=== PATIENT | female | born 1965 | race Caucasian/White ===

== ENCOUNTER → 2018-05-23 12:27 | Outpatient (CLI) | payer OTHER, SELFPAY ==
--- NOTE | 2018-05-23 12:32 | BI_ITS ---
MAMMOGRAPHY - BILATERAL SCREENING REASON FOR EXAM: Female, 53 years old. Routine annual screening examination. PERTINENT HISTORY: Non-contributory. Prior left excisional breast biopsy. TECHNIQUE: Digital bilateral breast jose (3D mammographic acquisition) in the CC and MLO projections. 2-D mediolateral oblique (MLO) and craniocaudad (CC) views of both breasts were obtained. CAD: Full Field Digital Mammography with Computer Added Detection was performed. COMPARISON: Comparison is made with prior study dated April 26, 2017 and April 20, 2016. FINDINGS: Breast Composition: The breasts are heterogeneously dense, which may obscure small masses. There are no dominant masses or suspicious calcifications. No other significant abnormalities are identified. There has been no significant change since the prior study. BI/SCREENING MAMM (CAD), BILAT IMPRESSION: Stable bilateral screening mammogram. Yearly follow-up mammogram recommended. (A) ASSESSMENT CATEGORY: BIRADS Category 1: Negative. A letter regarding these results will be sent to the patient by the facility within 30 days. Approximately 10% of breast cancers are not detected by mammography. A normal mammogram should not delay biopsy of a clinically suspicious abnormality. [id number] Electronically Signed: Kevin Chappell MD at 15:15 EDT Tel [phone], Service support ,
--- NOTE | 2018-05-23 12:35 | US_ITS ---
STUDY: THYROID ULTRASOUND REASON FOR EXAM: Female, 53 years old. Thyroid nodules. Follow-up. TECHNIQUE: Ultrasound evaluation of the thyroid was performed with real-time and static hodges-scale imaging. COMPARISON: Ultrasound thyroid 02/22/2017, 07/03/2015, 10/18/2013. FINDINGS: RIGHT LOBE: The right thyroid measures 53 x 21 x 16 mm. The background echotexture is homogeneous with normal vascular flow. There are multiple small thyroid nodules. Largest is heterogeneous hypoechoic sharply circumscribed margins, solid features, measuring approximately 7 x 7 x 6 mm, with marilyn-nodular vascular flow. Other smaller nodules are hypoechoic solid circumscribed, hyperechoic solid circumscribed. Hyperechoic nodule measures 5.7 x 2.1 mm. LEFT LOBE: The left thyroid measures 44 x 17 x 13 mm, with normal background echotexture and vascularity. There are multiple thyroid nodules. The largest left-sided nodule is centrally hypoechoic, solid or complex cystic features, marilyn-nodular vascular flow, 7 x 7 x 5 mm. Additional smaller hypoechoic sharply circumscribed nodules are present, with cystic and solid features. The dominant nodule of the right thyroid has diminished in size compared to prior imaging of 2016. The right hyperechoic nodule is stable. The dominant left hypoechoic nodule is unchanged. The smaller nodules are not substantially changed. ISTHMUS: The isthmus measures 2 mm, normal echotexture . US/Thyroid IMPRESSION: There is no progression in the appearance of thyroid nodules prior imaging of February 2017. The largest nodule on the right has a maximum dimension of 7 mm, and on the left a maximum dimension of 7 mm. Based on the [place] [employer] criteria, biopsy is not required. Continued surveillance imaging would be most appropriate. The pattern favors multinodular goiter. Electronically Signed: Dimitrios Chatman, at 10:16 EDT Tel , Service support ,
== END ==
PROVIDERS: Family Provider Family Medicine; PCP Family Medicine; Visit Provider Internal Medicine Endocrinology, Diabetes & Metabolism
DX: E04.2 Nontoxic multinodular goiter (principal); Z12.31 Encounter for screening mammogram for malignant neoplasm of breast
CPT/HCPCS: 76536; 77063; 77067

== ENCOUNTER → 2018-06-27 09:23 | Outpatient (CLI) | payer OTHER, SELFPAY ==
[2018-06-27 11:31] LABS: AST(SGOT) 15 U/L (15-37); Alanine Aminotransfer ALT/SGPT 26 U/L (13-56); Anion Gap 11 (5-15); BUN 18 mg/dL (7-18); BUN/Creat Ratio 22.9 RATIO (10-20); Calcium,Total 8.4 mg/dL (8.5-10.1); Chloride 105 mmol/L (98-107); Cholesterol 161 mg/dL (200); Creatinine, Serum 0.78 mg/dL (0.55-1.02); EST Glomerular Filtration Rate 82 mL/min (>60); Est Glom Filt Rate - Afr Amer 99 mL/min (>60); Glucose 77 mg/dL (74-106); High Density Lipoprotein 37 mg/dL; Potassium 4.1 mmol/L (3.5-5.1); Sodium Level 141 mmol/L (136-145); T4 Free Direct 0.81 ng/dL (0.76-1.46); Thyroid Stim Hormone (TSH) 2.12 uIU/mL (0.358-3.74); Triglycerides 190 mg/dL; Very Low Density Lipoprotein 38 mg/dL (5-40)
== END ==
PROVIDERS: Family Provider Family Medicine; PCP Family Medicine; Visit Provider Internal Medicine Endocrinology, Diabetes & Metabolism
DX: E04.2 Nontoxic multinodular goiter (principal); E78.2 Mixed hyperlipidemia; E28.2 Polycystic ovarian syndrome
CPT/HCPCS: 36415; 80048; 80061; 84439; 84443; 84450; 84460

== ENCOUNTER → 2018-07-11 08:26 | Outpatient (CLI) | payer OTHER, SELFPAY ==
[2018-07-16 13:45] LABS: HPV Reflexed? NOT INDICATED
== END ==
PROVIDERS: Family Provider Family Medicine; PCP Family Medicine; Visit Provider Obstetrics & Gynecology
DX: Z12.4 Encounter for screening for malignant neoplasm of cervix (principal)
CPT/HCPCS: 88175; G0145

== ENCOUNTER → 2019-01-22 07:56 | Outpatient (CLI) | payer OTHER, SELFPAY ==
[2019-01-22 09:29] LABS: AST(SGOT) 14 U/L (15-37); Alanine Aminotransfer ALT/SGPT 23 U/L (13-56); Anion Gap 11 (5-15); BUN 12 mg/dL (7-18); BUN/Creat Ratio 15.3 RATIO (10-20); Calcium,Total 8.4 mg/dL (8.5-10.1); Chloride 106 mmol/L (98-107); Cholesterol 148 mg/dL (200); Creatinine, Serum 0.79 mg/dL (0.55-1.02); EST Glomerular Filtration Rate 82 mL/min (>60); Est Glom Filt Rate - Afr Amer 99 mL/min (>60); Glucose 81 mg/dL (74-106); High Density Lipoprotein 38 mg/dL; Potassium 4.1 mmol/L (3.5-5.1); Sodium Level 143 mmol/L (136-145); T4 Free Direct 0.92 ng/dL (0.76-1.46); Thyroid Stim Hormone (TSH) 2.15 uIU/mL (0.358-3.74); Triglycerides 172 mg/dL; Very Low Density Lipoprotein 34 mg/dL (5-40)
== END ==
PROVIDERS: Family Provider Family Medicine; PCP Family Medicine; Referring Provider Internal Medicine Endocrinology, Diabetes & Metabolism; Visit Provider Internal Medicine Endocrinology, Diabetes & Metabolism
DX: E04.2 Nontoxic multinodular goiter (principal); E78.2 Mixed hyperlipidemia; E28.2 Polycystic ovarian syndrome; E66.8 Other obesity
CPT/HCPCS: 36415; 80048; 80061; 84439; 84443; 84450; 84460

== ENCOUNTER → 2019-06-07 | Outpatient (CLI) | payer SELFPAY ==
--- NOTE | 2019-06-07 11:30 | RAD_ITS ---
STUDY: X-RAY - LEFT ANKLE REASON FOR EXAM: Pain and swelling at the left lateral malleolus after twisting injury 05/12/2019. TECHNIQUE: 3 view(s) of the ankle. COMPARISON: None. FINDINGS: Normal visualized distal tibia and fibula. There is a small enthesophyte of the medial malleolus. Normal lateral malleolus. Normal tibiotalar articulation and ankle mortise. There are posterior and plantar calcaneal enthesophytes. There is an osteophyte at the dorsal aspect of the talonavicular articulation without joint space narrowing. The visualized subtalar, calcaneocuboid and tarsal articulations are normal. There is mild soft tissue swelling overlying the lateral malleolus. RAD/Ankle min 3 Views IMPRESSION: Moderate soft tissue swelling. Calcaneal and medial malleolar enthesopathy. No demonstrated fracture. Electronically Signed: Andrea Winters MD at 11:51 EDT Tel , Service support ,
== END | disposition home or self-care (01) ==
LOC: MTRAD 11:19
PROVIDERS: Family Provider Family Medicine; PCP Family Medicine; Referring Provider Family Medicine; Visit Provider Family Medicine
DX: S93.402A Sprain of unspecified ligament of left ankle, initial encounter (principal)
CPT/HCPCS: 73610

== ENCOUNTER → 2019-07-30 07:52 | Outpatient (CLI) | payer OTHER, SELFPAY ==
[2019-07-30 08:40] LABS: AST(SGOT) 14 U/L (15-37); Alanine Aminotransfer ALT/SGPT 20 U/L (13-56); Anion Gap 8 (5-15); BUN 16 mg/dL (7-18); BUN/Creat Ratio 20.3 RATIO (10-20); Calcium,Total 8.8 mg/dL (8.5-10.1); Chloride 105 mmol/L (98-107); Cholesterol 179 mg/dL (200); Creatinine, Serum 0.79 mg/dL (0.55-1.02); EST Glomerular Filtration Rate 81 mL/min (>60); Est Glom Filt Rate - Afr Amer 99 mL/min (>60); Glucose 84 mg/dL (74-106); High Density Lipoprotein 40 mg/dL; Potassium 4.2 mmol/L (3.5-5.1); Sodium Level 141 mmol/L (136-145); T4 Free Direct 0.82 ng/dL (0.76-1.46); Thyroid Stim Hormone (TSH) 2.44 uIU/mL (0.358-3.74); Triglycerides 188 mg/dL; Very Low Density Lipoprotein 38 mg/dL (5-40)
== END ==
PROVIDERS: Family Provider Family Medicine; PCP Family Medicine; Referring Provider Internal Medicine Endocrinology, Diabetes & Metabolism; Visit Provider Internal Medicine Endocrinology, Diabetes & Metabolism
DX: E04.2 Nontoxic multinodular goiter (principal); E78.2 Mixed hyperlipidemia; E28.2 Polycystic ovarian syndrome; E66.8 Other obesity
CPT/HCPCS: 36415; 80048; 80061; 84439; 84443; 84450; 84460

== ENCOUNTER → 2019-08-02 10:49 | Outpatient (CLI) | payer OTHER, SELFPAY ==
--- NOTE | 2019-08-02 11:01 | US_ITS ---
HISTORY: NON TOXIC MULTI NODULAR GOITER EXAMINATION: US Thyroid (eg thyroid, parathyroid, parotid) TECHNIQUE: Ruby scale and color doppler imaging was performed of the thyroid gland. COMPARISON: May 23, 2018 FINDINGS: RIGHT THYROID LOBE: Measures 5.4 x 1.7 x 1.9 cm. Heterogeneous echotexture but with normal vascularity multiple nodules are present. The largest, within the superior pole, measures 6 x 5 x 5 mm the nodule is solid and cystic with irregular margins LEFT THYROID LOBE: Measures 5.1 x 1.6 x 1.8 cm. Heterogeneous echotexture but with normal vascularity. Multiple nodules are present throughout the left lobe of the thyroid gland. The largest, within the lower pole measures 7 x 6 x 7 mm. It is mostly cystic with irregular margins ISTHMUS: Is 3 mm thick. No thyroid nodules are present. US/Thyroid IMPRESSION: Similar bilateral nodules. No significant increase in size of cystic and solid nodules within either lobe of the thyroid gland. at 0221 Reported and signed by: Erwin Wetzel MD Electronically Signed: Erwin Wetzel MD at 2:20 EDT Tel , Service support ,
--- NOTE | 2019-08-02 11:12 | BI_ITS ---
MAMMOGRAPHY - BILATERAL SCREENING REASON FOR EXAM: Female, 54 years old. Routine annual screening examination. PERTINENT HISTORY: Non-contributory. Left excisional breast biopsy. TECHNIQUE: Digital bilateral breast mario alberto (3D mammographic acquisition) in the CC and MLO projections. 2-D mediolateral oblique (MLO) and craniocaudad (CC) views of both breasts were obtained. CAD: Full Field Digital Mammography with Computer Added Detection was performed. COMPARISON: Comparison is made with prior study dated May 23, 2018 and April 26, 2017. FINDINGS: Breast Composition: The breasts are extremely dense, which lowers the sensitivity of mammography. There are no dominant masses or suspicious calcifications. Stable small benign-appearing bilateral axillary lymph nodes. No other significant abnormalities are identified. There has been no significant change since the prior study. BI/SCREEN MAMM (CAD) W/MARIO ALBERTO BILAT IMPRESSION: Stable bilateral screening mammogram. Yearly follow-up mammogram recommended. (A) ASSESSMENT CATEGORY: BIRADS Category 2: Benign. A letter regarding these results will be sent to the patient by the facility within 30 days. Approximately 10% of breast cancers are not detected by mammography. A normal mammogram should not delay biopsy of a clinically suspicious abnormality. [id number] Electronically Signed: Kevin Chappell, at 12:27 EDT , Service support ,
== END ==
PROVIDERS: Family Provider Family Medicine; PCP Family Medicine; Referring Provider Internal Medicine Endocrinology, Diabetes & Metabolism; Visit Provider Internal Medicine Endocrinology, Diabetes & Metabolism
DX: E04.2 Nontoxic multinodular goiter (principal); Z12.31 Encounter for screening mammogram for malignant neoplasm of breast
CPT/HCPCS: 76536; 77063; 77067

== ENCOUNTER → 2019-08-30 16:09 | Outpatient (CLI) | payer OTHER, SELFPAY | PROVIDERS: Family Provider Family Medicine; PCP Family Medicine; Referring Provider Obstetrics & Gynecology; Visit Provider Obstetrics & Gynecology | DX: Z12.4 Encounter for screening for malignant neoplasm of cervix (principal) ==

== ENCOUNTER → 2019-11-18 13:33 | Outpatient (CLI) | payer OTHER, SELFPAY ==
[2019-11-18 14:28] LABS: Mucous, Urine 0 SEEN /hpf (<or=2+)
[2019-11-18 14:49] LABS: Color, Urine Yellow (Yellow); Glucose, Dipstick Normal (Normal); Ketone-Dipstick 5 mg/dl (Negative); Leukocyte Esterase-Dipstick 500 /ul (Negative); Nitrite-Dipstick Negative (Negative); Occult Blood-Urine 250 /ul (Negative); Protein-Dipstick 100 mg/dl (Negative); Specific Gravity, Urine 1.025 (1.002-1.030); Urine Bilirubin Dipstick Negative (Negative); Urine Clarity Cloudy (Clear); Urine Urobilinogen Normal (Normal)
[2019-11-18 14:56] LABS: Bacteria 2+ /hpf (None Seen); Red Blood Cells-Urine 5-10 SEEN /hpf (0-5); Squamous Epithelial Cells - UA 0-5 SEEN /hpf (5-10); White Blood Cells 25-50 SEEN /hpf (0-5)
== END ==
PROVIDERS: Family Provider Family Medicine; PCP Family Medicine; Referring Provider Nurse Practitioner Family; Visit Provider Nurse Practitioner Family
DX: N39.0 Urinary tract infection, site not specified (principal)
CPT/HCPCS: 81001; 87086; 87088; 87186

== ENCOUNTER → 2020-01-20 09:23 | Outpatient (CLI) | payer OTHER, SELFPAY ==
[2020-01-20 11:00] LABS: AST(SGOT) 17 U/L (15-37); Alanine Aminotransfer ALT/SGPT 25 U/L (13-56); Anion Gap 8 (5-15); BUN 12 mg/dL (7-18); BUN/Creat Ratio 15.7 RATIO (10-20); Calcium,Total 9.1 mg/dL (8.5-10.1); Chloride 104 mmol/L (98-107); Cholesterol 177 mg/dL (200); Creatinine, Serum 0.76 mg/dL (0.55-1.02); EST Glomerular Filtration Rate 84 mL/min (>60); Est Glom Filt Rate - Afr Amer 102 mL/min (>60); Glucose 88 mg/dL (74-106); High Density Lipoprotein 38 mg/dL; Sodium Level 139 mmol/L (136-145); T4 Free Direct 0.95 ng/dL (0.76-1.46); Thyroid Stim Hormone (TSH) 2.44 uIU/mL (0.358-3.74); Triglycerides 161 mg/dL; Very Low Density Lipoprotein 32 mg/dL (5-40)
== END ==
PROVIDERS: PCP Family Medicine; Referring Provider Internal Medicine Endocrinology, Diabetes & Metabolism; Visit Provider Internal Medicine Endocrinology, Diabetes & Metabolism
DX: E04.2 Nontoxic multinodular goiter (principal); E28.2 Polycystic ovarian syndrome; E78.2 Mixed hyperlipidemia; L68.0 Hirsutism; E03.8 Other specified hypothyroidism
CPT/HCPCS: 36415; 80048; 80061; 84439; 84443; 84450; 84460

== ENCOUNTER → 2020-06-17 08:20 | Outpatient (CLI) | payer OTHER, SELFPAY ==
[2020-06-17 09:59] LABS: AST(SGOT) 14 U/L (15-37); Alanine Aminotransfer ALT/SGPT 26 U/L (13-56); Anion Gap 5 (5-15); BUN 17 mg/dL (7-18); BUN/Creat Ratio 22.3 RATIO (10-20); Calcium,Total 8.8 mg/dL (8.5-10.1); Chloride 105 mmol/L (98-107); Cholesterol 175 mg/dL (200); Creatinine, Serum 0.76 mg/dL (0.55-1.02); EST Glomerular Filtration Rate 84 mL/min (>60); Est Glom Filt Rate - Afr Amer 102 mL/min (>60); Glucose 81 mg/dL (74-106); High Density Lipoprotein 38 mg/dL; Sodium Level 139 mmol/L (136-145); T4 Free Direct 0.95 ng/dL (0.76-1.46); Thyroid Stim Hormone (TSH) 2.43 uIU/mL (0.358-3.74); Triglycerides 180 mg/dL; Very Low Density Lipoprotein 36 mg/dL (5-40)
== END ==
PROVIDERS: PCP Family Medicine; Referring Provider Internal Medicine Endocrinology, Diabetes & Metabolism; Visit Provider Internal Medicine Endocrinology, Diabetes & Metabolism
DX: E78.2 Mixed hyperlipidemia (principal); E04.2 Nontoxic multinodular goiter; E66.8 Other obesity; E28.2 Polycystic ovarian syndrome
CPT/HCPCS: 36415; 80048; 80061; 84439; 84443; 84450; 84460

== ENCOUNTER → 2020-09-04 12:48 | Outpatient (CLI) | payer OTHER, SELFPAY ==
--- NOTE | 2020-09-04 12:58 | BI_ITS ---
MAMMOGRAPHY - BILATERAL SCREENING REASON FOR EXAM: Female, 55 years old. Routine annual screening examination. PERTINENT HISTORY: Non-contributory. Remote left excisional breast biopsy. TECHNIQUE: Digital bilateral breast mario alberto (3D mammographic acquisition) in the CC and MLO projections. 2-D mediolateral oblique (MLO) and craniocaudad (CC) views of both breasts were obtained. CAD: Full Field Digital Mammography with Computer Added Detection was performed. COMPARISON: Comparison is made with prior study dated 08/02/2019 and 05/23/2018. FINDINGS: Breast Composition: The breasts are extremely dense, which lowers the sensitivity of mammography. There are no dominant masses or suspicious calcifications. Stable benign appearing bilateral axillary. No other significant abnormalities are identified. There has been no significant change since the prior study. BI/SCREEN MAMM (CAD) W/MARIO ALBERTO BILAT IMPRESSION: Stable bilateral screening mammogram. Yearly follow-up mammogram recommended. (A) ASSESSMENT CATEGORY: BIRADS Category 2: Benign. A letter regarding these results will be sent to the patient by the facility within 30 days. Approximately 10% of breast cancers are not detected by mammography. A normal mammogram should not delay biopsy of a clinically suspicious abnormality. [id number] Electronically Signed: Kevin Chappell, at 14:37 EDT , Service support ,
== END ==
PROVIDERS: PCP Family Medicine; Referring Provider Student in an Organized Health Care Education/Training Program; Visit Provider Student in an Organized Health Care Education/Training Program
DX: Z12.31 Encounter for screening mammogram for malignant neoplasm of breast (principal)
CPT/HCPCS: 77063; 77067

== ENCOUNTER → 2020-11-17 | Outpatient (CLI) | payer OTHER, SELFPAY ==
[2020-11-23 20:50] LABS: HPV APTIMA, High Risk Negative (Negative); HPV Reflexed? YES, CHARGE PATIENT
== END | disposition home or self-care (01) ==
LOC: LABSPEC 15:42
PROVIDERS: PCP Family Medicine; Visit Provider Student in an Organized Health Care Education/Training Program
DX: Z12.4 Encounter for screening for malignant neoplasm of cervix (principal)
CPT/HCPCS: 87624; 88175; G0145

== ENCOUNTER → 2020-12-25 08:32 | Outpatient (CLI) | payer OTHER, SELFPAY ==
[2020-12-25 10:04] LABS: AST(SGOT) 17 U/L (15-37); Alanine Aminotransfer ALT/SGPT 26 U/L (13-56); Anion Gap 5 (5-15); BUN 17 mg/dL (7-18); BUN/Creat Ratio 24.1 RATIO (10-20); Calcium,Total 8.9 mg/dL (8.5-10.1); Chloride 104 mmol/L (98-107); Cholesterol 177 mg/dL (200); EST Glomerular Filtration Rate 92 mL/min (>60); Est Glom Filt Rate - Afr Amer 111 mL/min (>60); Glucose 81 mg/dL (74-106); High Density Lipoprotein 45 mg/dL; Sodium Level 137 mmol/L (136-145); T4 Free Direct 0.98 ng/dL (0.76-1.46); Thyroid Stim Hormone (TSH) 2.12 uIU/mL (0.358-3.74); Triglycerides 110 mg/dL; Very Low Density Lipoprotein 22 mg/dL (5-40)
== END ==
PROVIDERS: PCP Family Medicine; Referring Provider Internal Medicine Endocrinology, Diabetes & Metabolism; Visit Provider Internal Medicine Endocrinology, Diabetes & Metabolism
DX: E03.8 Other specified hypothyroidism (principal); E78.2 Mixed hyperlipidemia; L68.0 Hirsutism; E66.8 Other obesity
CPT/HCPCS: 36415; 80048; 80061; 84439; 84443; 84450; 84460

== ENCOUNTER → 2021-08-19 07:37 | Outpatient (CLI) | payer OTHER, SELFPAY ==
[2021-08-19 08:45] LABS: AST(SGOT) 10 U/L (15-37); Alanine Aminotransfer ALT/SGPT 20 U/L (13-56); Anion Gap 7 (5-15); BUN 17 mg/dL (7-18); BUN/Creat Ratio 22.5 RATIO (10-20); Calcium,Total 8.5 mg/dL (8.5-10.1); Chloride 105 mmol/L (98-107); Cholesterol 198 mg/dL (200); Creatinine, Serum 0.76 mg/dL (0.55-1.02); EST Glomerular Filtration Rate 85 mL/min (>60); Est Glom Filt Rate - Afr Amer 102 mL/min (>60); Glucose 88 mg/dL (74-106); High Density Lipoprotein 40 mg/dL; Sodium Level 138 mmol/L (136-145); T4 Free Direct 0.79 ng/dL (0.76-1.46); Triglycerides 159 mg/dL; Very Low Density Lipoprotein 32 mg/dL (5-40)
[2021-08-19 09:15] LABS: Hemoglobin A1c 5.6 % (3.8-5.6)
== END ==
PROVIDERS: PCP Family Medicine; Referring Provider Nurse Practitioner Adult Health; Visit Provider Nurse Practitioner Adult Health
DX: E03.8 Other specified hypothyroidism (principal); E28.2 Polycystic ovarian syndrome; E78.2 Mixed hyperlipidemia
CPT/HCPCS: 36415; 80048; 80061; 83036; 84439; 84443; 84450; 84460

== ENCOUNTER → 2021-08-25 | Outpatient (CLI) | payer OTHER, SELFPAY | END | disposition home or self-care (01) | LOC: LABSPEC 16:01 | PROVIDERS: PCP Family Medicine; Referring Provider Family Medicine; Visit Provider Family Medicine | DX: U07.1 COVID-19 (principal) | CPT/HCPCS: 87635; U0005; U0003 ==

== ENCOUNTER 2021-08-30 12:30 | Outpatient (CLI) | payer OTHER, SELFPAY ==
[2021-08-30] MEDS: 0.9% Saline Lock 10 ML Syringe IV (12:38)
[2021-08-30 12:40] VITALS: BP 144/85; PULSE 75; RESP 16; TEMP 36.7; O2SAT 100; BMI 36.7
[2021-08-30 13:18] VITALS: BP 125/81; PULSE 73; RESP 16; TEMP 36.6; O2SAT 99
[2021-08-30 14:18] VITALS: BP 129/68; PULSE 71; RESP 16; TEMP 36.6; O2SAT 99
== END 2021-08-30 14:18 | disposition home or self-care (01) ==
LOC: MS3OUT 12:30 → MS3 12:31
PROVIDERS: PCP Family Medicine; Referring Provider Nurse Practitioner Acute Care; Visit Provider Nurse Practitioner Acute Care
DX: Z23 Encounter for immunization (principal); U07.1 COVID-19
CPT/HCPCS: J7050; M0243; A4216; Q0244

== ENCOUNTER → 2021-09-20 18:16 | Outpatient (CLI) | payer OTHER, SELFPAY ==
--- NOTE | 2021-09-20 18:30 | US_ITS ---
STUDY: THYROID ULTRASOUND REASON FOR EXAM: Female, 56 years old. Goiter. TECHNIQUE: Ultrasound evaluation of the thyroid was performed with real-time and static hodges-scale imaging. COMPARISON: August 02, 2019. May 23, 2018. FINDINGS: RIGHT LOBE: The right lobe of the thyroid gland measures 4.8 x 1.8 x 1.7 cm. There is a heterogeneous echotexture. Multiple nodules measuring 0.7 x 0.5 x 0.4 cm solid, 0.6 x 0.5 x 0.5 cm solid cystic and 0.6 x 0.5 x 0.4 cm solid. On the prior study the right lobe measures 5.4 cm. Largest nodule measured 0.6 cm. LEFT LOBE: The left lobe of the thyroid gland measures 4.6 x 1.5 x 1.6 cm. There is a heterogeneous echotexture. Cystic nodule measuring 1.0 x 0.9 x 0.8 cm, 0.6 x 0.5 x 0.3 cm and 0.5 x 0.5 x 0.5 cm. On the prior study left lobe measures 5.1 cm. Largest cystic nodule measured 0.7 cm. ISTHMUS: The isthmus measures 1 mm . The regional lymph nodes are normal. US/Thyroid IMPRESSION: The thyroid gland is mildly enlarged but decreased in size since the prior study. No significant change in multiple subcentimeter solid nodules right lobe. Cystic nodules left lobe largest of which measures 1 cm and has mildly increased in size. Electronically Signed: Tank Dee MD at 4:16 EST , Service support ,
== END ==
PROVIDERS: PCP Family Medicine; Visit Provider Nurse Practitioner Adult Health
DX: E04.2 Nontoxic multinodular goiter (principal)
CPT/HCPCS: 76536

== ENCOUNTER → 2021-10-06 07:04 | Outpatient (CLI) | payer OTHER, SELFPAY ==
--- NOTE | 2021-10-05 17:13 | BI_ITS ---
MAMMOGRAPHY - BILATERAL SCREENING 3-D TOMOSYNTHESIS REASON FOR EXAM: Female, 56 years old. Routine screening PERTINENT HISTORY: No significant family history. TECHNIQUE: 2-D mammograms and 3-D Tomosynthesis of the breast (s) were performed. CAD was performed. COMPARISON: 09/04/2020 FINDINGS: The breast composition is heterogeneously dense that can obscure small breast masses. Scattered benign calcifications are seen. No dense spiculated masses or suspicious microcalcifications are identified. No architectural distortion is identified. There is no skin thickening or retraction. There has been no significant change since the prior study. BI/SCRN MAMM (CAD)W/MARIO ALBERTO BILAT IMPRESSION: No mammographic signs of malignancy. Routine yearly mammograms recommended. ASSESSMENT CATEGORY: BIRADS Category 2: Benign. A letter regarding these results will be sent to the patient by the facility within 30 days. FOLLOW UP RECOMMENDATION: Yearly follow up mammogram recommended. (A) Approximately 10% of breast cancers are not detected by mammography. A normal mammogram should not delay biopsy of a clinically suspicious abnormality. Electronically Signed: Robbi Carlson MD at 11:15 EST , Service support ,
== END ==
PROVIDERS: PCP Family Medicine; Referring Provider Student in an Organized Health Care Education/Training Program; Visit Provider Student in an Organized Health Care Education/Training Program
DX: Z12.31 Encounter for screening mammogram for malignant neoplasm of breast (principal)
CPT/HCPCS: 77063; 77067

== ENCOUNTER 2021-11-30 15:08 | Outpatient (CLI) | payer OTHER, SELFPAY ==
[2021-11-30 15:30] LABS: Absolute Lymphocyte Count 3.67 X10^3/uL (0.83-4.51); Basophil# 0.09 X10^3/uL; Basophil% 0.8 % (0-1); Eosinophil# 0.28 X10^3/uL; Eosinophils% 2.5 % (0-5); Hematocrit 37.3 % (37-47); Hemoglobin 12.1 g/dL (12.0-15.0); Lymphocyte # 3.67 X10^3/ul (0.83-4.51); Lymphocyte % 33.4 % (19-41); Mean Corp Hgb Conc 32.4 g/dL (32-36); Mean Corpuscular Hgb 27.6 pg (27.0-32.0); Mean Platelet Vol. 9.4 fl (6.2-12.0); Monocyte# 0.94 X10^3/uL; Monocyte% 8.6 % (0-10); NRBC Flagged by Analyzer 0 % (0-5); Neutrophil # 5.97 X10^3/uL (2.7-7.7); Neutrophil % 54.3 % (47-70); Platelet Count 241 K/mm3 (150-450); RBC Distribution Width CV 15.1 % (11.6-14.6); RBC Distribution Width SD 47.5 fl (35.1-43.9); Red Blood Count 4.39 M/mm3 (4.2-5.4)
[2021-11-30 16:05] LABS: Anion Gap 6 (5-15); BUN 16 mg/dL (7-18); BUN/Creat Ratio 23.9 RATIO (10-20); Calcium,Total 8.9 mg/dL (8.5-10.1); Chloride 102 mmol/L (98-107); Creatinine, Serum 0.67 mg/dL (0.55-1.02); EST Glomerular Filtration Rate 97 mL/min (>60); Est Glom Filt Rate - Afr Amer 118 mL/min (>60); Glucose 91 mg/dL (74-106); Potassium 4.2 mmol/L (3.5-5.1); Sodium Level 137 mmol/L (136-145); Thyroid Stim Hormone (TSH) 2.22 uIU/mL (0.358-3.74)
== END 2021-11-30 23:59 | disposition short-term general hospital (02) ==
LOC: LAB 15:10
PROVIDERS: PCP Family Medicine; Visit Provider Family Medicine
DX: R55 Syncope and collapse (principal); E03.9 Hypothyroidism, unspecified
CPT/HCPCS: 36415; 80048; 84443; 85025

== ENCOUNTER 2021-12-21 16:42 | Outpatient (CLI) | payer OTHER, SELFPAY ==
[2021-12-26 08:36] LABS: HPV APTIMA, High Risk Negative (Negative)
== END 2021-12-21 23:59 | disposition home or self-care (01) ==
PROVIDERS: PCP Family Medicine; Visit Provider Student in an Organized Health Care Education/Training Program
DX: Z12.4 Encounter for screening for malignant neoplasm of cervix (principal)
CPT/HCPCS: 87624; 88175; G0145

== ENCOUNTER 2022-02-16 06:15 | Outpatient (CLI) | payer OTHER, SELFPAY ==
--- NOTE | 2022-02-16 06:16 | ECHOCS_ITS ---
Reason For Study: Arrhythmia Procedure This was a 2D Doppler, Color Flow transthoracic echocardiogram. The study was technically difficult. Contrast injection was performed. Exam performed in department. Left Ventricle Normal LV size. Left ventricular systolic function is normal. The estimated ejection fraction is 55 %. No regional wall motion abnormalities noted. Right Ventricle Normal RV size. Normal systolic function. Atria Normal left atrium. Normal right atrium. Mitral Valve Normal mitral valve. Tricuspid Valve Normal tricuspid valve. Aortic Valve Normal aortic valve. Pulmonic Valve Normal pulmonic valve. Great Vessels Normal aortic root. The pulmonary artery is normal size. Normal inferior vena cava. Pericardium/Pleural No pericardial effusion. Medication 22 gauge I.V. with prn adaptor inserted into right arm. Diluted definity 2ml given slow IV push to enhance endocardial definition. MMode/2D Measurements & Calculations LVIDd: 4.8 cm IVSd: 1.1 cm Ao root diam: 3.3 cm LVIDs: 3.6 cm LVPWd: 1.1 cm LA dimension: 3.5 cm RVDd: 3.0 cm FS: 24.5 % LAV(MOD-bp): 31.6 ml LA A4 area: 12.5 cm2 RA A4 area: 10.5 cm2 LAV(MOD-bp) Indexed: 15.4 ml/m2 LAV(MOD-sp2): 31.4 ml LAV(MOD-sp4): 29.7 ml Time Measurements MV dec time: 0.25 sec Doppler Measurements & Calculations MV E max andres: 73.1 cm/sec Lat Peak E' Andres: 8.5 cm/sec Med Peak E' Andres: 7.3 cm/sec MV A max andres: 95.0 cm/sec E/E' lat: 8.6 E/E' med: 10.0 MV E/A: 0.77 MV V2 max: 102.2 cm/sec MV P1/2t max andres: 85.4 cm/sec Ao V2 max: 125.8 cm/sec MV max P.2 mmHg MV P1/2t: 76.9 msec Ao max P.3 mmHg MV V2 mean: 64.6 cm/sec MV dec slope: 325.5 cm/sec2 MV mean P.9 mmHg MV V2 VTI: 25.1 cm MVA(P1/2t): 2.9 cm2 LV V1 max: 90.3 cm/sec PA V2 max: 79.9 cm/sec TR max andres: 185.9 cm/sec LV V1 max P.3 mmHg TR max P.8 mmHg ECHO/Echo Complete W/ Contrast Interpretation Summary Normal LV size. Left ventricular systolic function is normal. The estimated ejection fraction is 55 %. No regional wall motion abnormalities noted. Contrast injection was performed. Ordering Physician: Sherif Conroy Referring Physician: Kin Herr Performed By: Christiano Hayes RCS
--- NOTE | 2022-02-16 11:06 | STRESSREP ---
Stress Test Report Exercise stress myocardial perfusion stress test. 57-year-old lady with a history of cardiac dysrhythmias. Stress protocol: Resting KG demonstrates normal sinus rhythm with a rate of 75 bpm normal intervals are noted resting blood pressure is 134/86 mmHg. The patient exercised according to regular Gino protocol for total duration of 6 minutes and 21 seconds. The patient completed 21 seconds into stage III of the Gino protocol. The patient maintained sinus rhythm with occasional premature ventricular complexes and then at peak exercise went into a narrow complex tachycardia with a rate of approximately 206 bpm. During recovery the patient's heart rate slowed down to approximately 187 bpm which continued to be the narrow complex tachycardia suggestive of a supraventricular AVNRT. She further slow down and then appeared to have converted into a sinus tachycardia. She did remain in a narrow complex tachycardia with a rate of approximately 144 bpm for at least 15 minutes suggestive of an automatic atrial tachycardia on ectopic atrial tachycardia. This was minimally symptomatic. The patient was eventually administered 5 mg of intravenous metoprolol with further slowing down of her heart rate to approximately 114 bpm. Patient was minimally symptomatic. The peak blood pressure was 174/96 mmHg. No clinical angina was noted. Myocardial perfusion protocol. 15.0 mCi of technetium 99m sestamibi was injected at rest. The patient exercised according to regular Gino protocol for 6 minutes and 20 seconds and at peak exercise 44.8 mCi of technetium 99m sestamibi was injected stress images were obtained stress and rest images were reconstructed and compared in the short axis vertical long horizontal long axis. Gated images were also obtained for Perfusion SPECT analysis: Review of the stress images demonstrate normal uptake of tracer noted in all areas of the myocardium. The resting images similarly demonstrate normal uptake of tracer noted in all areas of the myocardium. No areas of reversibility are noted to suggest ischemia no previous infarct is noted. Gated SPECT analysis: The gated ejection fraction is 62%. Conclusion: Exercise myocardial perfusion stress test with no evidence of ischemia at a moderate workload. 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
== END 2022-02-16 23:59 | disposition home or self-care (01) ==
LOC: CVS 06:16
PROVIDERS: PCP Family Medicine; Visit Provider Internal Medicine Cardiovascular Disease
DX: I47.2 Ventricular tachycardia (principal)
CPT/HCPCS: 78452; 93017; 93306; A9500; Q9957; A4216; C8929

== ENCOUNTER → 2022-03-29 | Outpatient (CLI) | payer OTHER, SELFPAY ==
--- NOTE | 2022-03-29 15:05 | RAD_ITS ---
STUDY: X-RAY CHEST REASON FOR EXAM: Female, 57 years old. sob TECHNIQUE: PA and lateral COMPARISON: None. FINDINGS: The lungs are clear and expanded. There is no demonstrated pleural abnormality. Normal size heart. Normal mediastinum and nishi. Normal visualized pulmonary arteries. Normal visualized aortic arch and descending thoracic aorta. Normal visualized thoracic spine. Normal visualized ribs, clavicles, and shoulders. There is no demonstrated abnormality of the visualized soft tissue structures of the upper abdomen. RAD/Chest PA and Lateral IMPRESSION: Normal x-ray examination of the chest. Electronically Signed: Mateo Argueta MD at 23:03 EDT ,
== END | disposition home or self-care (01) ==
LOC: RAD 14:58
PROVIDERS: PCP Family Medicine; Referring Provider Physician Assistant Medical; Visit Provider Physician Assistant Medical
DX: I47.1 Supraventricular tachycardia (principal); I47.2 Ventricular tachycardia; E11.9 Type 2 diabetes mellitus without complications; R00.2 Palpitations; R07.89 Other chest pain; E03.9 Hypothyroidism, unspecified; E66.9 Obesity, unspecified; U07.1 COVID-19
CPT/HCPCS: 71046

== ENCOUNTER 2022-04-07 09:24 | Day surgery (SDC) | payer OTHER, SELFPAY ==
[2022-03-29 15:24] LABS: Absolute Lymphocyte Count 2.86 X10^3/uL (0.83-4.51); Basophil# 0.08 X10^3/uL; Basophil% 0.9 % (0-1); Eosinophil# 0.13 X10^3/uL; Eosinophils% 1.5 % (0-5); Hematocrit 36.4 % (37-47); Hemoglobin 11.6 g/dL (12.0-15.0); Lymphocyte # 2.86 X10^3/ul (0.83-4.51); Lymphocyte % 32.6 % (19-41); Mean Corp Hgb Conc 31.9 g/dL (32-36); Mean Corpuscular Hgb 27.4 pg (27.0-32.0); Mean Corpuscular Volume 86.1 fL (81-99); Mean Platelet Vol. 9.9 fl (6.2-12.0); Monocyte# 0.72 X10^3/uL; Monocyte% 8.2 % (0-10); NRBC Flagged by Analyzer 0 % (0-5); Neutrophil # 4.95 X10^3/uL (2.7-7.7); Neutrophil % 56.5 % (47-70); Platelet Count 257 K/mm3 (150-450); RBC Distribution Width CV 14.9 % (11.6-14.6); RBC Distribution Width SD 46.8 fl (35.1-43.9); Red Blood Count 4.23 M/mm3 (4.2-5.4); White Blood Count 8.8 K/mm3 (4.4-11.0)
[2022-03-29 16:09] LABS: Anion Gap 5 (5-15); BUN 17 mg/dL (7-18); BUN/Creat Ratio 22.8 RATIO (10-20); Calcium,Total 8.8 mg/dL (8.5-10.1); Chloride 104 mmol/L (98-107); Creatinine, Serum 0.74 mg/dL (0.55-1.02); EST Glomerular Filtration Rate 86 mL/min (>60); Est Glom Filt Rate - Afr Amer 104 mL/min (>60); Glucose 88 mg/dL (74-106); Potassium 3.9 mmol/L (3.5-5.1); Sodium Level 137 mmol/L (136-145)
[2022-04-06 07:57] VITALS: BMI 37.8
--- NOTE | 2022-04-07 11:45 | ELECTROPHY_ITS ---
Electrophysiology Study Electrophysiology Study Electrophysiology Report History: The Patient was brought to the EP Catheterization Laboratory at [facility] after informed consent and assessment of anesthesia / sedation. Intermittent bolus of Versed and Fentanyl were used for sedation and analgesia. The Right groin was prepped and draped in usual sterile manner. Using the Seldinger technique the femoral vein was [id number] and diagnostic electrophysiology catheters were positioned in the high right atrium, His and right ventricle. Programmed stimulation (pacing and mapping) were completed of the right atrium, and right ventricle at baseline state and during 3 ugm/minute Isuprel Infusion. Surface Measurements: ME: 190 QRS: 85 Morphology: [ ] QT: 340 Baseline SCL: 620 AH: 120 HV: 45 MAXIMUM SNRT: 1130 CSNRT: 510 AVBCL: 420 VABCL: 390 DECREMENTAL CONDUCTION: yes Concentric: [ ] AP BCL: [ ] AVN ERP: 350 @ 550ms AP ERP: [ ] VERP: [ ] Inducible Tachycardia: no Isuprel SCL: 440 AH: 65 HV: 45 MAXIMUM SNRT: [ ] CSNRT: [ ] AVBCL: 240 VABCL: 250 DECREMENTAL CONDUCTION: yes Concentric: [ ] AP BCL: [ ] AVN ERP: <220/350ms AP ERP: VERP: Inducible AVNRT only with ventricular pacing V1/V2/V3 Ablation of: slow pathway Results of Ablation: successful SP ablation Site Of Ablation: coronary sinus Post Ablation Testing Baseline SCL: [ ] AH: [ ] HV: [ ] AVBCL: [ ] VA BCL: [ ] Isuprel SCL: 440 AH: 60 HV: 45 AVBCL: 270 VA BCL: 270 AVN ERP 250@ 350 No jump and no ECHO VAERP 220@ 350 No jump and no ECHO; No inducible tachycardia Conclusions: Successful SP ablation for typical AVNRT
--- NOTE | 2022-04-07 11:46 | PCM.HP.BLA ---
History and Physical Date of Admission: 04/07/22 Taylor Baker is a 56-year-old lady with is here today for an EP study. She has a history of obesity, diabetes mellitus who contracted COVID in Aug 2021. She had some atypical chcest pain, event monitor was ordered by PCP. Event monitor she was noted to have an episode of a narrow complex tachycardia as well as a 7 beat run of a wide-complex tachycardia noted at 4 AM. This was asymptomatic. There was another episode of a narrow complex tachycardia which was also 7 beats with a rate of approximately 150 bpm. She did have sinus tachycardia noted for more than 22% of the duration. 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 She was started on Toprol 50 mg. Pt has not had any further issues since starting metoprolol, although she has not done anything to aggravate this. She is having some GI issues from the metoprolol. Allergies erythromycin base Allergy (Intermediate, Verified 03/02/22 15:00) hives Medications ascorbic acid (vitamin C) [Vitamin C] 1 g PO DAILY 08/30/21 [History Confirmed 03/02/22] cholecalciferol (vitamin D3) [Vitamin D3] 125 mcg PO DAILY 08/30/21 [History Confirmed 03/02/22] zinc 50 mg PO DAILY 08/30/21 [History Confirmed 03/02/22] levothyroxine 25 mcg tablet 25 mcg PO DAILY tab 01/12/22 [History Confirmed 03/02/22] metformin 500 mg tablet,extended release 24 hr 1,500 mg PO QAM tab 01/12/22 [History Confirmed 03/02/22] spironolactone 50 mg tablet 50 mg PO DAILY tab 01/12/22 [History Confirmed 03/02/22] metoprolol succinate 50 mg tablet,extended release 24 hr 50 mg PO DAILY #30 tab 02/16/22 [Rx Confirmed 03/02/22] FOR[facility] Medical History Hypothyroidism Non-ischemic cardiomyopathy Nonsustained paroxysmal ventricular tachycardia Obesity Type 2 diabetes mellitus Social History Smoking Status: Never smoker alcohol intake: never ROS Const Const: Negative for fatigue, weakness, headache(s), frequent falls, difficulty sleeping or excessive sweating Eyes Eyes: Negative for loss of peripheral vision, transient loss of vision, blurry vision, double vision or tunnel vision ENT ENT: Negative for headache(s), dizziness, Nosebleed/epistaxis or balance problems Cardio Chest Pain: Yes (episodes of chest pain and faster hr since October ) Palpitations: Yes feels like its: fast, thumping and pounding Edema: None Muscle aches with walking: None Resp Respiratory: Negative for SOB with activity, SOB at rest, SOB orthopnea\SOB lying down, Cough or paroxysmal nocturnal dyspnea GI GI: Negative nausea, vomiting, heartburn or black,tarry stools : Negative for hematuria Musc Musc: Negative for muscle aches/ myalgia, muscle weakness, joint pain or balance problems Skin Skin: Negative non-healing lesions, rash or unusual bruising Neuro Neuro: Negative for dizziness, lightheadedness, near syncope, syncope, orthostatic symptoms, frequent falls, headache(s), weakness, blurry vision, double vision or lack of coordination Jose Hematologic/Lymphatic: Negative for easy bleeding or easy bruising Endo Endo: Negative for fatigue, excessive sweating or increased thirst/drinking Psych Psych: Negative for anxiety or depression Allergy Allergy/Immunology: Negative for hives and Negative for rash Cardiology Exam Const Appearance: cooperative, healthy appearing, comfortable, no acute distress and well developed Orientation: alert, awake and oriented x3 Head Head: normal to inspection Ears: hearing grossly normal bilaterally Nose: external nose normal Face and Sinus: face symmetric Mouth: oral mucosae normal, lip normal and moist mucous membranes Eyes General: appearance normal, both eyes and all related structures Eyelids: eyelids normal Conjunctivae: conjunctivae normal Pupils: PERRL EOM: EOM intact bilaterally Neck Neck: normal visual inspection and trachea midline; Negative no JVD Carotids: Negative bruit Chest Chest inspection: normal inspection of the chest Auscultation: Bilateral: Clear to Auscultation Cardio Palpation: normal PMI Rate: regular rate Rhythm: regular rhythm Heart sounds: S1 normal and S2 normal; Negative rub, gallop or murmur GI GI: soft, no hepatosplenomegaly and bowel sounds present Neuro General: patient alert, patient awake, patient oriented x3 and CN's II-XI intact bilaterally Extremities Pulses: Normal: Right Posterior Tibial Pulse, Left Posterior Tibial Pulse, Right Radial Pulse and Left Radial Pulse Lower Extremity Edema: None: Bilateral Psych Psychological: normal affect Supplemental Information Echocardiogram 2021: Normal LV size. Left ventricular systolic function is normal. The estimated ejection fraction is 55 %. No regional wall motion abnormalities noted. Contrast injection was performed. Exercise stress myocardial perfusion stress test 2021: 57-year-old lady with a history of cardiac dysrhythmias. Stress protocol: Resting KG demonstrates normal sinus rhythm with a rate of 75 bpm normal intervals are noted resting blood pressure is 134/86 mmHg. The patient exercised according to regular Gino protocol for total duration of 6 minutes and 21 seconds. The patient completed 21 seconds into stage III of the Gino protocol. The patient maintained sinus rhythm with occasional premature ventricular complexes and then at peak exercise went into a narrow complex tachycardia with a rate of approximately 206 bpm. During recovery the patient's heart rate slowed down to approximately 187 bpm which continued to be the narrow complex tachycardia suggestive of a supraventricular AVNRT. She further slow down and then appeared to have converted into a sinus tachycardia. She did remain in a narrow complex tachycardia with a rate of approximately 144 bpm for at least 15 minutes suggestive of an automatic atrial tachycardia on ectopic atrial tachycardia. This was minimally symptomatic. The patient was eventually administered 5 mg of intravenous metoprolol with further slowing down of her heart rate to approximately 114 bpm. Patient was minimally symptomatic. The peak blood pressure was 174/96 mmHg. No clinical angina was noted. Myocardial perfusion protocol. 15.0 mCi of technetium 99m sestamibi was injected at rest. The patient exercised according to regular Gino protocol for 6 minutes and 20 seconds and at peak exercise 44.8 mCi of technetium 99m sestamibi was injected stress images were obtained stress and rest images were reconstructed and compared in the short axis vertical long horizontal long axis. Gated images were also obtained for Perfusion SPECT analysis: Review of the stress images demonstrate normal uptake of tracer noted in all areas of the myocardium. The resting images similarly demonstrate normal uptake of tracer noted in all areas of the myocardium. No areas of reversibility are noted to suggest ischemia no previous infarct is noted. Gated SPECT analysis: The gated ejection fraction is 62%. Conclusion: Exercise myocardial perfusion stress test with no evidence of ischemia at a moderate workload. 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 Assessment and Plan (1) Nonsustained paroxysmal ventricular tachycardia: (2) AVNRT (AV nii re-entry tachycardia): Patient is agreeable to proceed with EP study. Plan of care will be based upon EP study.
== END 2022-04-07 16:15 | disposition home or self-care (01) ==
PROVIDERS: Physician Assistant Medical; PCP Family Medicine; Referring Provider Internal Medicine Cardiovascular Disease; Visit Provider Internal Medicine Cardiovascular Disease
DX: I47.2 Ventricular tachycardia (principal); I42.8 Other cardiomyopathies; E11.9 Type 2 diabetes mellitus without complications; Z79.84 Long term (current) use of oral hypoglycemic drugs; E66.9 Obesity, unspecified; Z86.16 Personal history of COVID-19; Z79.899 Other long term (current) drug therapy; E03.9 Hypothyroidism, unspecified; Z68.37 Body mass index [BMI] 37.0-37.9, adult
CPT/HCPCS: 36415; 80048; 85025; 85610; 93621; 93623; 93653; 99152; 99153; C1730; C1733; C1894; J7030; J2405

== ENCOUNTER → 2022-04-12 | Outpatient (CLI) | payer OTHER, SELFPAY ==
[2022-04-12 09:18] LABS: AST(SGOT) 18 U/L (15-37); Alanine Aminotransfer ALT/SGPT 29 U/L (13-56); Anion Gap 6 (5-15); BUN 17 mg/dL (7-18); BUN/Creat Ratio 21.9 RATIO (10-20); Calcium,Total 8.8 mg/dL (8.5-10.1); Chloride 104 mmol/L (98-107); Cholesterol 192 mg/dL (200); Creatinine, Serum 0.78 mg/dL (0.55-1.02); EST Glomerular Filtration Rate 82 mL/min (>60); Est Glom Filt Rate - Afr Amer 99 mL/min (>60); Glucose 97 mg/dL (74-106); High Density Lipoprotein 44 mg/dL; Potassium 4.2 mmol/L (3.5-5.1); Sodium Level 136 mmol/L (136-145); T4 Free Direct 0.96 ng/dL (0.76-1.46); Thyroid Stim Hormone (TSH) 1.93 uIU/mL (0.358-3.74); Triglycerides 142 mg/dL; Very Low Density Lipoprotein 28 mg/dL (5-40)
[2022-04-12 10:27] LABS: Hemoglobin A1c 5.5 % (3.8-5.6)
== END | disposition home or self-care (01) ==
PROVIDERS: PCP Family Medicine; Referring Provider Nurse Practitioner Adult Health; Visit Provider Nurse Practitioner Adult Health
DX: E03.8 Other specified hypothyroidism (principal); E28.2 Polycystic ovarian syndrome; E78.2 Mixed hyperlipidemia
CPT/HCPCS: 36415; 80048; 80061; 83036; 84439; 84443; 84450; 84460

== ENCOUNTER 2022-10-12 07:45 | Outpatient (CLI) | payer OTHER, SELFPAY ==
[2022-10-12 08:18] LABS: Hemoglobin A1c 5.9 % (3.8-5.6)
[2022-10-12 08:48] LABS: AST(SGOT) 10 U/L (15-37); Alanine Aminotransfer ALT/SGPT 23 U/L (13-56); Anion Gap 7 (5-15); BUN 19 mg/dL (7-18); BUN/Creat Ratio 24.7 RATIO (10-20); Calcium,Total 8.8 mg/dL (8.5-10.1); Chloride 104 mmol/L (98-107); Cholesterol 178 mg/dL (200); Creatinine, Serum 0.77 mg/dL (0.55-1.02); EST Glomerular Filtration Rate 83 mL/min (>60); Est Glom Filt Rate - Afr Amer 100 mL/min (>60); Glucose 84 mg/dL (74-106); High Density Lipoprotein 43 mg/dL; Sodium Level 138 mmol/L (136-145); T4 Free Direct 0.77 ng/dL (0.76-1.46); Thyroid Stim Hormone (TSH) 2.58 uIU/mL (0.358-3.74); Triglycerides 144 mg/dL; Very Low Density Lipoprotein 29 mg/dL (5-40)
== END 2022-10-12 23:59 | disposition home or self-care (01) ==
LOC: LAB 07:47
PROVIDERS: Nurse Practitioner Adult Health; PCP Family Medicine; Visit Provider Internal Medicine Endocrinology, Diabetes & Metabolism
DX: E03.8 Other specified hypothyroidism (principal); E28.2 Polycystic ovarian syndrome; E78.2 Mixed hyperlipidemia
CPT/HCPCS: 36415; 80048; 80061; 83036; 84439; 84443; 84450; 84460

== ENCOUNTER 2022-10-14 14:57 | Outpatient (CLI) | payer OTHER, SELFPAY ==
--- NOTE | 2022-10-14 15:00 | US_ITS ---
STUDY: THYROID ULTRASOUND REASON FOR EXAM: Female, 57 years old. NONTOXIC MULTINODULAR GOITER TECHNIQUE: Ultrasound evaluation of the thyroid was performed with real-time and static hodges-scale imaging. COMPARISON: 09/20/2021 FINDINGS: RIGHT LOBE: The right lobe of the thyroid gland measures 5.1 x 2.0 x 1.9 cm. There is a heterogeneous echotexture. Nodule 1: No change in the 7 x 4 x 4 mm solid hypoechoic wider than tall smoothly marginated nodule with no echogenic foci (TR 4) in the mid right lobe consistent with an adenoma. Nodule 2: No change in the 5 x 7 x 4 mm solid hypoechoic wider than tall smoothly marginated nodule with no echogenic foci (TR 4) in the lateral right lobe consistent with an adenoma. Nodule 3: No change in the 5 x 6 x 6 mm solid hypoechoic taller than wide ill-defined marginated nodule with no echogenic foci (TR 5) in the posterior right lobe and follow-up ultrasound is recommended in one year. LEFT LOBE: The left lobe of the thyroid gland measures 4.4 x 1.8 x 1.6 cm. There is a heterogeneous echotexture. Nodule 4: No change in a 10 x 9 x 8 mm cystic anechoic wider than tall smoothly marginated nodule with no echogenic foci (TR 1) in the mid left lobe consistent with a colloid cyst. ISTHMUS: The isthmus measures 3 mm thick. . The regional lymph nodes are normal. US/Thyroid IMPRESSION: No change in multinodular thyroid gland and follow-up ultrasound is recommended in one year.. Electronically Signed: Dimitrios Santos MD at 9:56 EST ,
== END 2022-10-14 23:59 | disposition home or self-care (01) ==
LOC: US 14:58
PROVIDERS: PCP Family Medicine; Referring Provider Nurse Practitioner Adult Health; Visit Provider Nurse Practitioner Adult Health
DX: E04.2 Nontoxic multinodular goiter (principal)
CPT/HCPCS: 76536

== ENCOUNTER → 2023-06-28 | Outpatient (CLI) | payer OTHER, SELFPAY ==
[2023-06-28 12:00] LABS: Hemoglobin A1c 5.7 % (3.8-5.6)
[2023-06-28 12:04] LABS: AST(SGOT) 12 U/L (15-37); Alanine Aminotransfer ALT/SGPT 19 U/L (13-56); Anion Gap 3 (5-15); BUN 17 mg/dL (7-18); Calcium,Total 8.7 mg/dL (8.5-10.1); Chloride 105 mmol/L (98-107); Cholesterol 179 mg/dL (200); Creatinine, Serum 0.71 mg/dL (0.55-1.02); EST Glomerular Filtration Rate 91 mL/min (>60); Est Glom Filt Rate - Afr Amer 110 mL/min (>60); Glucose 82 mg/dL (74-106); High Density Lipoprotein 42 mg/dL; Potassium 3.9 mmol/L (3.5-5.1); Sodium Level 138 mmol/L (136-145); T4 Free Direct 0.81 ng/dL (0.76-1.46); Thyroid Stim Hormone (TSH) 2.24 uIU/mL (0.358-3.74); Triglycerides 193 mg/dL; Very Low Density Lipoprotein 39 mg/dL (5-40)
== END | disposition home or self-care (01) ==
LOC: LAB 10:38
PROVIDERS: PCP Family Medicine; Referring Provider Nurse Practitioner Adult Health; Visit Provider Nurse Practitioner Adult Health
DX: E03.9 Hypothyroidism, unspecified (principal); E28.2 Polycystic ovarian syndrome; E78.2 Mixed hyperlipidemia
CPT/HCPCS: 36415; 80048; 80061; 83036; 84439; 84443; 84450; 84460

== ENCOUNTER → 2023-10-02 | Outpatient (CLI) | payer OTHER, SELFPAY ==
[2023-10-02 16:07] LABS: Anion Gap 5 (5-15); BUN 16 mg/dL (7-18); BUN/Creat Ratio 22.7 RATIO (10-20); Calcium,Total 9.2 mg/dL (8.5-10.1); Chloride 103 mmol/L (98-107); EST Glomerular Filtration Rate 91 mL/min (>60); Est Glom Filt Rate - Afr Amer 110 mL/min (>60); Glucose 92 mg/dL (74-106); Potassium 4.3 mmol/L (3.5-5.1); Sodium Level 138 mmol/L (136-145); Thyroid Stim Hormone (TSH) 1.57 uIU/mL (0.358-3.74)
== END | disposition home or self-care (01) ==
LOC: LAB 14:32
PROVIDERS: PCP Family Medicine; Referring Provider Physician Assistant Medical; Visit Provider Physician Assistant Medical
DX: I47.20 Ventricular tachycardia, unspecified (principal); I47.10 Supraventricular tachycardia, unspecified
CPT/HCPCS: 36415; 80048; 83735; 84443

== ENCOUNTER → 2023-10-27 | Outpatient (CLI) | payer OTHER, SELFPAY | END | disposition home or self-care (01) | LOC: PSN 11:52 | PROVIDERS: PCP Family Medicine; Referring Provider Physician Assistant Medical; Visit Provider Physician Assistant Medical | DX: I47.10 Supraventricular tachycardia, unspecified (principal); I47.20 Ventricular tachycardia, unspecified; R00.2 Palpitations; R07.89 Other chest pain; E03.9 Hypothyroidism, unspecified | CPT/HCPCS: 93225; 93226 ==

== ENCOUNTER → 2023-12-26 | Outpatient (CLI) | payer OTHER, SELFPAY ==
[2023-12-26 09:05] LABS: Hemoglobin A1c 5.6 % (3.8-5.6)
[2023-12-26 09:10] LABS: AST(SGOT) 14 U/L (15-37); Alanine Aminotransfer ALT/SGPT 16 U/L (13-56); Anion Gap 5 (5-15); BUN 15 mg/dL (7-18); BUN/Creat Ratio 19.4 RATIO (10-20); Calcium,Total 9.2 mg/dL (8.5-10.1); Chloride 108 mmol/L (98-107); Cholesterol 179 mg/dL (200); Creatinine, Serum 0.77 mg/dL (0.55-1.02); EST Glomerular Filtration Rate 82 mL/min (>60); Est Glom Filt Rate - Afr Amer 99 mL/min (>60); Glucose 95 mg/dL (74-106); High Density Lipoprotein 41 mg/dL; Potassium 4.4 mmol/L (3.5-5.1); Sodium Level 140 mmol/L (136-145); T4 Free Direct 0.82 ng/dL (0.76-1.46); Thyroid Stim Hormone (TSH) 2.57 uIU/mL (0.358-3.74); Triglycerides 170 mg/dL; Very Low Density Lipoprotein 34 mg/dL (5-40)
== END | disposition home or self-care (01) ==
LOC: LAB 07:52
PROVIDERS: PCP Family Medicine
DX: E03.8 Other specified hypothyroidism (principal); E28.2 Polycystic ovarian syndrome; E78.2 Mixed hyperlipidemia
CPT/HCPCS: 36415; 80048; 80061; 83036; 84439; 84443; 84450; 84460

== ENCOUNTER → 2023-12-29 | Outpatient (CLI) | payer OTHER, SELFPAY ==
--- NOTE | 2023-12-29 13:38 | US_ITS ---
EXAM: US SOFT TISSUES HEAD AND NECK, THYROID CLINICAL INDICATION: THYROID GOITER TECHNIQUE: Ruby scale and color doppler imaging was performed of the thyroid gland. COMPARISON: No relevant prior studies available. FINDINGS: LEFT THYROID LOBE: Left lobe measures 4.8 x 1.7 x 2.0 cm. Stable 10 and 5 mm cysts. Homogeneous echotexture with normal vascularity. RIGHT THYROID LOBE: Right thyroid lobe measures 5.6 x 1.7 x 2.2 cm. Stable 7 mm hypoechoic wider than tall nodule noted in the upper to midpole of the right lobe with fairly well-defined borders and without microcalcification. TI-RADS points: 4. TI-RADS category: TR4. This nodule is moderately suspicious but no FNA or follow-up is necessary given the small size of this nodule. Additional smaller colloid cysts noted. ISTHMUS: Isthmus measures 3 mm in AP dimension. No thyroid nodules are present. US/Thyroid IMPRESSION: Stable appearance of the thyroid gland. Electronically Signed: Alberto Huber MD at 13:07 EST ,
== END | disposition home or self-care (01) ==
PROVIDERS: PCP Family Medicine
DX: E04.2 Nontoxic multinodular goiter (principal)
CPT/HCPCS: 76536

== ENCOUNTER → 2024-03-05 | Outpatient (CLI) | payer OTHER, SELFPAY ==
--- NOTE | 2024-03-05 17:22 | RAD_ITS ---
STUDY: X-RAY - LEFT ANKLE REASON FOR EXAM: Female, 59 years old. pain, fall TECHNIQUE: 3 view(s) of the ankle. COMPARISON: None. FINDINGS: Normal visualized distal tibia and fibula. Irregularity of the medial malleolus the tibia likely from prior trauma. Normal tibiotalar articulation and ankle mortise. Normal visualized talus and calcaneus. Moderate-sized plantar and posterior calcaneal enthesophytes. The visualized subtalar, talonavicular, calcaneocuboid and tarsal articulations are normal. Lateral soft tissue swelling consistent with ligamentous injury. RAD/Ankle min 3 Views IMPRESSION: No acute fracture or dislocation. Lateral soft tissue swelling consistent with ligamentous injury. Electronically Signed: Dimitrios Santos MD at 0:06 EDT ,
--- NOTE | 2024-03-05 17:22 | RAD_ITS ---
STUDY: X-RAY - RIGHT FOOT CLINICAL: Female, 59 years old. pain fall TECHNIQUE: 3 view(s) of the foot. COMPARISON: None. FINDINGS: Normal talus, calcaneus, and tarsal bones. Moderate-sized plantar and posterior calcaneal enthesophytes. Type III accessory navicular bone. Normal visualized subtalar, talonavicular, calcaneocuboid, tarsal and tarsometatarsal articulations. Normal metatarsi. Normal metatarsophalangeal joint of the great toe. Normal tibial and fibular sesamoid bones. Normal interphalangeal joint of the great toe. Normal phalanges of the great toe. Normal second through fifth metatarsophalangeal joints. Normal interphalangeal joints and phalanges of the lesser toes. The soft tissue structures are unremarkable. RAD/Foot min 3 Views IMPRESSION: Normal x-ray examination of the foot. Electronically Signed: Dimitrios Santos MD at 0:07 EDT ,
== END | disposition home or self-care (01) ==
PROVIDERS: PCP Family Medicine; Referring Provider Family Medicine; Visit Provider Family Medicine
DX: M79.671 Pain in right foot (principal); M25.572 Pain in left ankle and joints of left foot
CPT/HCPCS: 73610; 73630

== ENCOUNTER → 2024-06-26 | Outpatient (CLI) | payer OTHER, SELFPAY ==
[2024-06-26 10:03] LABS: AST(SGOT) 14 U/L (15-37); Alanine Aminotransfer ALT/SGPT 21 U/L (13-56); Anion Gap 5 (5-15); BUN 14 mg/dL (7-18); BUN/Creat Ratio 18.2 RATIO (10-20); Calcium,Total 9.2 mg/dL (8.5-10.1); Chloride 104 mmol/L (98-107); Cholesterol 172 mg/dL (200); Creatinine, Serum 0.77 mg/dL (0.55-1.02); EST Glomerular Filtration Rate 82 mL/min (>60); Est Glom Filt Rate - Afr Amer 100 mL/min (>60); Glucose 88 mg/dL (74-106); High Density Lipoprotein 47 mg/dL; Potassium 4.3 mmol/L (3.5-5.1); Sodium Level 137 mmol/L (136-145); T4 Free Direct 0.81 ng/dL (0.76-1.46); Triglycerides 150 mg/dL; Very Low Density Lipoprotein 30 mg/dL (5-40)
[2024-06-26 12:19] LABS: Hemoglobin A1c 5.5 % (3.8-5.6)
== END | disposition home or self-care (01) ==
PROVIDERS: PCP Family Medicine; Referring Provider Nurse Practitioner Adult Health; Visit Provider Nurse Practitioner Adult Health
DX: E03.8 Other specified hypothyroidism (principal); E28.2 Polycystic ovarian syndrome; E78.2 Mixed hyperlipidemia
CPT/HCPCS: 36415; 80048; 80061; 83036; 84439; 84443; 84450; 84460

== ENCOUNTER → 2024-11-01 | Outpatient (CLI) | payer OTHER, SELFPAY ==
--- NOTE | 2024-11-01 12:44 | US_ITS ---
STUDY: THYROID ULTRASOUND REASON FOR EXAM: Female, 59 years old. Nontoxic multinodular goiter TECHNIQUE: Ultrasound evaluation of the thyroid was performed with real-time and static hogdes-scale imaging. COMPARISON: 12/29/2023 FINDINGS: RIGHT LOBE: The right lobe of the thyroid gland measures 5.5 x 1.7 x 1.47 cm. There is a homogeneous echotexture. Nodule 1: No change in the 6 x 5 x 5 mm solid hypoechoic wider than tall ill-defined margin nodule with no echogenic foci (TR 4) in the posterior right lobe consistent with an adenoma. Nodule 2: No change in the 6 x 4 x 5 mm solid hypoechoic wider than tall ill-defined margin nodule with no echogenic foci (TR 4) in the mid right lobe consistent with an adenoma. LEFT LOBE: The left lobe of the thyroid gland measures 4.0 x 1.8 x 1.4 cm. There is a homogeneous echotexture. Nodule 3: No change in the 10 x 10 x 8 mm cystic anechoic wider than tall smoothly marginated nodule with no echogenic foci (TR 1) in the mid left lobe consistent with a colloid cyst. ISTHMUS: The isthmus measures 2 mm thick. . The regional lymph nodes are normal. US/Thyroid IMPRESSION: No change in multinodular thyroid gland. Electronically Signed: Dimitrios Santos MD at 11:03 EST ,
== END | disposition home or self-care (01) ==
LOC: US 12:43
PROVIDERS: PCP Family Medicine; Referring Provider Nurse Practitioner Adult Health; Visit Provider Nurse Practitioner Adult Health
DX: E04.2 Nontoxic multinodular goiter (principal)
CPT/HCPCS: 76536

== ENCOUNTER → 2024-11-11 | Outpatient (CLI) | payer OTHER, SELFPAY ==
[2024-11-11 13:34] LABS: Anion Gap 5 (5-15); BUN 11 mg/dL (7-18); BUN/Creat Ratio 15.3 RATIO (10-20); Calcium,Total 9.2 mg/dL (8.5-10.1); Chloride 105 mmol/L (98-107); Creatinine, Serum 0.72 mg/dL (0.55-1.02); EST Glomerular Filtration Rate 89 mL/min (>60); Est Glom Filt Rate - Afr Amer 107 mL/min (>60); Glucose 99 mg/dL (74-106); Magnesium 1.7 mg/dL (1.6-2.6); Potassium 3.8 mmol/L (3.5-5.1); Sodium Level 138 mmol/L (136-145)
== END | disposition home or self-care (01) ==
LOC: LAB 12:48
PROVIDERS: PCP Family Medicine; Referring Provider Physician Assistant Medical; Visit Provider Physician Assistant Medical
DX: R11.10 Vomiting, unspecified (principal); R19.7 Diarrhea, unspecified; R00.2 Palpitations
CPT/HCPCS: 36415; 80048; 83735

== ENCOUNTER → 2024-12-31 | Outpatient (CLI) | payer OTHER, SELFPAY ==
[2024-12-31 09:14] LABS: AST(SGOT) 15 U/L (15-37); Alanine Aminotransfer ALT/SGPT 23 U/L (13-56); Anion Gap 8 (5-15); BUN 13 mg/dL (7-18); BUN/Creat Ratio 17.6 RATIO (10-20); Calcium,Total 9.3 mg/dL (8.5-10.1); Chloride 104 mmol/L (98-107); Cholesterol 181 mg/dL (200); Creatinine, Serum 0.74 mg/dL (0.55-1.02); EST Glomerular Filtration Rate 86 mL/min (>60); Est Glom Filt Rate - Afr Amer 104 mL/min (>60); Glucose 90 mg/dL (74-106); High Density Lipoprotein 37 mg/dL; Potassium 4.5 mmol/L (3.5-5.1); Sodium Level 139 mmol/L (136-145); T4 Free Direct 0.93 ng/dL (0.76-1.46); Triglycerides 139 mg/dL; Very Low Density Lipoprotein 28 mg/dL (5-40)
[2024-12-31 09:44] LABS: Hemoglobin A1c 5.6 % (3.8-5.6)
[2025-01-01 04:07] LABS: LDL, Direct 120295 131 mg/dL (0-99)
== END | disposition home or self-care (01) ==
LOC: LAB 08:17
PROVIDERS: PCP Family Medicine; Referring Provider Nurse Practitioner Adult Health; Visit Provider Nurse Practitioner Adult Health
DX: E03.8 Other specified hypothyroidism (principal); E28.2 Polycystic ovarian syndrome; E78.2 Mixed hyperlipidemia
CPT/HCPCS: 36415; 80048; 80061; 83036; 83721; 84439; 84443; 84450; 84460

== ENCOUNTER → 2025-01-24 | Outpatient (CLI) | payer OTHER, SELFPAY ==
[2025-01-24 16:42] LABS: Hematocrit 39.5 % (37-47); Hemoglobin 13.4 g/dL (12.0-15.0); Mean Corp Hgb Conc 33.9 g/dL (32-36); Mean Corpuscular Hgb 28.9 pg (27.0-32.0); Mean Corpuscular Volume 85.1 fL (81-99); Platelet Count 239 K/mm3 (150-450); RBC Distribution Width CV 14.6 % (11.6-14.6); RBC Distribution Width SD 45.7 fl (35.1-43.9); Red Blood Count 4.64 M/mm3 (4.2-5.4); White Blood Count 12.5 K/mm3 (4.4-11.0)
[2025-01-24 17:19] LABS: Anion Gap 17 (5-15); BUN 12 mg/dL (4-19); Calcium,Total 9.5 mg/dL (7.6-11.0); Chloride 98 mmol/L (98-108); Creatinine, Serum 0.81 mg/dL (0.70-1.20); EST Glomerular Filtration Rate 84 (>60); Glucose 171 mg/dL (70-99); Magnesium 2.1 mg/dL (1.5-2.2); Potassium 3.8 mmol/L (3.3-5.1); Sodium Level 134 mmol/L (133-145)
== END | disposition home or self-care (01) ==
LOC: LAB 15:48
PROVIDERS: PCP Family Medicine; Referring Provider Physician Assistant Medical; Visit Provider Physician Assistant Medical
DX: R00.2 Palpitations (principal)
CPT/HCPCS: 36415; 80048; 83735; 84443; 85027

== ENCOUNTER → 2025-01-29 | Outpatient (CLI) | payer OTHER, SELFPAY | END | disposition home or self-care (01) | LOC: PSN 06:59 | PROVIDERS: PCP Family Medicine; Referring Provider Physician Assistant Medical; Visit Provider Physician Assistant Medical | DX: R00.2 Palpitations (principal); I47.20 Ventricular tachycardia, unspecified | CPT/HCPCS: 93225; 93226 ==

== ENCOUNTER → 2025-06-04 | Outpatient (CLI) | payer OTHER, SELFPAY ==
[2025-06-09 12:52] LABS: HPV APTIMA, High Risk Negative (Negative)
== END | disposition home or self-care (01) ==
LOC: LABSPEC 17:09
PROVIDERS: PCP Family Medicine; Referring Provider Advanced Practice Midwife; Visit Provider Advanced Practice Midwife
DX: Z12.4 Encounter for screening for malignant neoplasm of cervix (principal)
CPT/HCPCS: 87624; 88175; G0145

== ENCOUNTER → 2025-06-13 | Outpatient (CLI) | payer OTHER, SELFPAY ==
--- NOTE | 2025-06-13 07:30 | BI_ITS ---
EXAM: SCRN MAMM (CAD)W/MARIO ALBERTO BILAT DATE: 06/13/2025 CLINICAL HISTORY: F, Age 60 y/o , ANNUAL TECHNIQUE: SCRN MAMM (CAD)W/MARIO ALBERTO BILAT COMPARISON: Prior exam(s) dated 10/05/2021, 09/04/2020, 08/02/2019. FINDINGS: TISSUE DENSITY: The breasts are heterogeneously dense, which may obscure small masses. The mammogram demonstrates that the patient has dense breasts. Supplemental screening with whole breast ultrasound or MRI may be considered for further evaluation. Bilateral Breast Mammographic Findings: No significant masses, calcifications or other abnormalities are identified. BI/SCRN MAMM (CAD)W/MARIO ALBERTO BILAT IMPRESSION: There is no mammographic evidence of malignancy. OVERALL FINAL ASSESSMENT BI-RADS 1: NEGATIVE. RECOMMENDATION: Routine annual follow-up in 1 Year A letter with findings and recommendations will be mailed to the patient. Reading Location: [id number]
--- NOTE | 2025-06-13 07:38 | US_ITS ---
PROCEDURE: TRANSVAGINAL NON- 06/13/2025 REASON FOR EXAM: ABNORMAL UTERINE BLEEDING Occasional spotting. Patient is perimenopausal. TECHNIQUE: TRANSVAGINAL NON- COMPARISON: None FINDINGS: Measurements: Uterus: 10.6 cm x 7.4 cm x 5.7 cm with a volume of 232.78 mL Endometrial Thickness: 9 mm. It is hyperechoic. Right Ovary: Not visualized. Left Ovary: Not visualized. Uterus: Enlarged fibroid uterus. Heterogeneous echotexture. There is a 2.7 cm 2.5 cm 1.8 cm fundal fibroid. To hypoechoic nodule is seen in the cervix. The largest measures 1 cm x 1.4 cm 0.8 cm. These may represent polyps. Endometrium: 9 mm. Right ovary: Normal size and echotexture. Left ovary: Normal size and echotexture. Other: No large pelvic mass identified. US/Transvaginal Non- IMPRESSION: Enlarged fibroid uterus. Possible endometrial polyps in the cervical region. Reading Location: [id number]
--- OUTSIDE RECORDS SUMMARY | 2025-06-13 07:40 | XMS RPT_ITS | CCD ---
Author Organization [facility] Care Team Providers Care Career Development Facilitator Name Role Phone Dr. Kin Herr Primary Care Provider Dr. Kin Herr Referring Provider Dr. Sherif Conroy Attending Provider RAZ Fernandes Attending Provider Dr. Nikhil Thomas Referring Provider Dr. Nikhil Thomas Other Provider RAZ Fernandes Other Provider Dr. Kin Herr Primary Care Provider Dr. Sherif Conroy Attending Provider Dr. Kin Herr Referring Provider Dr. Kin Herr Primary Care Provider Dr. Kin Herr Referring Provider RAZ Fernandes Attending Provider Dr. Kin Herr Primary Care Provider Dr. Kin Herr Referring Provider RAZ Fernandes Attending Provider MARIELLE GRISSOM Referring Efreni ALESSIA Sandoval Primary Care Unavail eugene Herr MD, Alessia Gould Primary Care Provide r Dr. Alessia Herr MD Primary Care Provider Grayson PRODUCTION SUPPORT ANALYST-C, Katelyn Attending Provider Grayson PRODUCTION SUPPORT ANALYST-C, Katelyn Referring Provider Marielle Fernandes Attending Provider [phone] Marielle Fernandes Referring Provider [phone] Marycarmen DUNCAN, Dr. Gorman Attending Provider [phone] Dr. Alessia Herr MD Primary Care Provider Referred, Self Attending Provider Unavailable Referred, Self Referring Provider Unavailable Carmenza DUNCAN, Dr. Sesay Referring Provider [phone] Marielle Fernandes Attending Provider [phone] Ellie Perdomo CNM Attending Provider [phone] Ellie Perdomo CNM Referring Provider [phone] Ranedna, Christopher Primary Care Unavailable Marielle Fernandes Attending Unavail able Marielle Fernandes Referring Unavail able Ranney, Christopher Primary Care Unavailable Ellie Perdomo Referring Unavailable Ellie Perdomo Attending Unavailable Ellie Perdomo Attending Unavailable Ranney, Christopher Primary Care Unavailable Ellie Perdomo Referring Unavailable Referred, Self Referring Unavailable Referred, Self Attending Unavailable Ranney, Christopher Primary Care Unavailable Ranney, Christopher Primary Care Unavailable Marielle Fernandes Referring Unavail able Marielle Fernandes Attending Unavail able Ranney, Christopher Primary Care Unavailable Ranney, Christopher Referring Unavailable Ellie Perdomo Attending Unavailable Ranney, Christopher Primary Care Unavailable Marielle Fernandes Referring Unavail able Sherif Conroy Attending Unavailable Ranney, Christopher Primary Care Unavailable Ranney, Christopher Referring Unavailable Marielle Fernandes Attending Unavail able Ranney, Christopher Primary Care Unavailable Ranney, Christopher Referring Unavailable Ellie Perdomo Attending Unavailable Ranney, Christopher Primary Care Unavailable Grayson PRODUCTION SUPPORT ANALYSTKatelyn Attending Unavailable Grayson PRODUCTION SUPPORT ANALYSTKatelyn Referring Unavailable Ranney, Christopher Primary Care Unavailable Marielle Fernandes Referring Unavail able Marielle Fernandes Attending Unavail able Ranney, Christopher Referring Unavailable Ranney, Christopher Primary Care Unavailable Marielle Fernandes Attending Unavail able Alessia Herr Primary Care Unavailable Katelyn Galicia NP Referring Unavailable Katelyn Galicia NP Attending Unavailable Alessia Herr Primary Care Unavailable Katelyn Galicia NP Referring Unavailable Katelyn Galicia NP Attending Unavailable Allergies Allergy Classification Reported Allergen(s) Allergy Type Date of Onset Reaction(s) Facility (16 sources) Erythromycin Drug Allergy 2 [facility] (1 source) ALLERGIES NOT ON FILE; Translations: [ALLERGIES NOT ON FILE] Propensity to adverse reactions (disorder) [facility] 2 Repository (1 source) Erythromycin Drug Allergy 5 [facility] Repository Medications Current Medications Medication Drug Class(es) Dates Sig (Normalized) Sig (Original) cholecalciferol 0.025 mg oral tablet (18 sources) Vitamin D Start: 02-26-2025 take 1 tablet by mouth once daily Cholecalciferol (Vitamin D3) 25 mcg (1,000 unit) tablet Active 25 ug PO daily February 26, 2025 12:00am Start: 08-30-2021 End: 02-26-2025 take 1 tablet by mouth once daily Cholecalciferol (Vitamin D3) (Vitamin D3) 125 mcg (5,000 unit) Tablet Discontinued 125 ug PO DAILY August 30, 2021 12:00am February 26, 2025 2:54pm levothyroxine sodium 0.025 mg oral tablet (20 sources) l-Thyroxine Start: 01-12-2022 take 1 tablet by mouth once daily Levothyroxine 25 mcg tablet Active 25 ug PO DAILY January 12, 2022 1:00am Start: 12-30-2021 End: 01-12-2022 take 1 capsule by mouth once daily Levothyroxine 13 mcg capsule Discontinued 13 ug PO DAILY December 30, 2021 1:00am January 12, 2022 11:28am Start: 08-30-2021 End: 12-30-2021 take 1 tablet by mouth once daily Levothyroxine 25 mcg tablet Discontinued 25 ug PO DAILY August 30, 2021 12:00am December 30, 2021 3:16pm Magnesium Oxide 240 mg magnesium powder in packet (2 sources) Start: 02-26-2025 take 1 mg by mouth once daily in the evening Magnesium Oxide 240 mg magnesium powder in packet Active mg PO EVERY EVENING February 26, 2025 12:00am 24 hr metFORMIN hydrochloride 500 mg extended release oral tablet (20 sources) Biguanide Start: 01-12-2022 Metformin 500 mg tablet extended release 24 hr Active 1500 mg PO EVERY MORNING January 12, 2022 11:29am Start: 01-12-2022 take 1500 mg by mout h once daily in the morning Metformin Active 1500 MG PO EVERY MORNING January 12, 2022 11:29am Start: 12-30-2021 End: 01-12-2022 Metformin 500 mg tablet exte nded release 24 hr Discontinued 1000 mg PO EVERY MORNING December 30, 2021 3:15pm January 12, 2022 11:29am Start: 12-30-2021 End: 01-12-2022 take 1000 mg by mouth once daily in the morning Metformin Discontinued 1000 MG PO EVERY MORNING December 30, 2021 3:15pm January 12, 2022 11:29am Start: 12-30-2021 End: 01-12-2022 take 1 tablet by mouth once daily in the evening Metformin 500 mg tablet extended release 24 hr Discontinued 500 mg PO EVERY EVENING December 30, 2021 1:00am January 12, 2022 11:29am Start: 08-30-2021 End: 12-30-2021 Metformin 500 mg tablet exte nded release 24 hr Discontinued 1500 mg PO DAILY August 30, 2021 12:00am December 30, 2021 3:16pm Start: 08-30-2021 End: 12-30-2021 take 1500 mg by mouth once daily Metformin Discontinued 1500 MG PO DAILY August 30, 2021 12:00am December 30, 2021 3:16pm Gerry-3 Fatty Acids 1,000 mg capsule (4 sources) Start: 04-03-2024 take 1 capsule by mouth once daily Gerry-3 Fatty Acids 1,000 mg capsule Active 1000 mg PO DAILY April 03, 2024 12:00am super omega 300 omeprazole 40 mg delayed release oral capsule (4 sources) Proton Pump Inhibitor Start: 09-09-2024 take 1 capsule by mouth once daily Omeprazole 40 mg capsule,delayed release(DR/EC) Active 40 mg PO daily September 09, 2024 12:00am spironolactone 50 mg oral tablet (20 sources) Aldosterone Antagonist Start: 01-12-2022 take 1 tablet by mouth once daily Spironolactone 50 mg tablet Active 50 mg PO DAILY January 12, 2022 11:29am Start: 12-30-2021 End: 01-12-2022 take 1 tablet by mouth twice daily Spironolactone 50 mg tablet Discontinued 50 mg PO TWICE A DAY December 30, 2021 3:15pm January 12, 2022 11:29am Start: 08-30-2021 End: 12-30-2021 take 1 tablet by mouth once daily Spironolactone 50 mg tablet Discontinued 50 mg PO DAILY August 30, 2021 12:00am December 30, 2021 3:16pm Zinc (16 sources) Start: 08-30-2021 take 50 mg by mouth once daily Zinc Active 50 MG PO DAILY August 30, 2021 12:34pm Start: 08-30-2021 End: 05-25-2022 take 1 capsule by mouth once daily Zinc 50 mg Capsule Discontinued 50 mg PO DAILY August 30, 2021 12:00am May 25, 2022 3:07pm Start: 08-30-2021 End: 05-25-2022 take 50 mg by mouth once daily Zinc Discontinued 50 MG PO DAILY August 29, 2021 11:00pm May 25, 2022 2:07pm Start: 08-30-2021 End: 05-25-2022 take 50 mg by mouth once daily Zinc Discontinued 50 MG PO DAILY August 30, 2021 12:00am May 25, 2022 3:07pm Completed/Discontinued Medications Medication Drug Class(es) Dates Sig (Normalized) Sig (Original) ascorbic acid 1000 mg oral tablet (16 sources) Vitamin C Start: 08-30-2021 End: 10-02-2023 take 1 g by mouth once daily Ascorbic Acid (Vitamin C) (Vitamin C) 1,000 mg Tablet Discontinued 1 g PO DAILY August 30, 2021 12:00am October 02, 2023 3:02pm 24 hr metoprolol succinate 25 mg extended release oral tablet (20 sources) beta-Adrenergic Cathy Start: 09-09-2024 End: 11-11-2024 take 1 tablet by mouth every twenty-four hours at bedtime Metoprolol Succinate 25 mg tablet extended release 24 hr Discontinued 25 mg PO AT BEDTIME 60 11 November 11, 2024 11:59am November 11, 2024 12:05pm THIS is a dose increase Start: 04-03-2024 End: 09-09-2024 take 1 tablet by mouth once daily Metoprolol Succinate 25 mg tablet extended release 24 hr Discontinued 25 mg PO DAILY 30 April 03, 2024 12:00am September 09, 2024 2:29pm Start: 02-16-2022 End: 10-04-2022 take 1 tablet by mouth once daily Metoprolol Succinate 50 mg tablet extended release 24 hr Discontinued 0 .ROUTE .COMPLEX 90 3 May 13, 2022 8:22am October 04, 2022 3:28pm TAKE 1 TABLET BY MOUTH EVERY DAY Problems Active Problems Problem Classification Problem Date Documented Date Episodic/Chronic Cardiac dysrhythmias (20 sources) AV nii re-entry tachycardia; Translations: [Supraventricular tachycardia] Chronic Comment on above: per event monitor 8 beat Diabetes mellitus without complication (16 sources) Type 2 diabetes mellitus; Translations: [Type 2 diabetes mellitus without complications] 12-30-2021 Chronic Nonspecific chest pain (16 sources) Atypical chest pain; Translations: [Other chest pain] 12-30-2021 Episodic Other female genital disorders (4 sources) Abnormal uterine bleeding; Translations: [Abnormal uterine and vaginal bleeding, unspecified] 06-04-2025 Chronic Comment on above: TVUSWill consider la bs/possible EMB Other female genital disorders (2 sources) Abnormal uterine and vaginal bleeding, unspecified; Translations: [Abnormal uterine and vaginal bleeding, unspecified] Onset: 06-04-2025 Chronic Other nutritional; endocrine; and metabolic disorders (16 sources) Obesity; Translations: [Obesity, unspecified] 12-30-2021 Chronic Other screening for suspected conditions (not mental disorders or infectious disease) (1 source) Encounter for screening for malignant neoplasm of cervix; Translations: [Encounter for screening for malignant neoplasm of cervix] Onset: 06-10-2025 Episodic Kathleen-; endo-; and myocarditis; cardiomyopathy (except that caused by tuberculosis or sexually transmitted disease) (20 sources) Cardiomyopathy; Translations: [Other cardiomyopathies] Onset: 05-08-2024 02-16-2022 Chronic Comment on above: EF 45-50% per echo 2 004 Thyroid disorders (18 sources) Hypothyroidism; Translations: [Hypothyroidism, unspecified] Onset: 12-05-2024 12-30-2021 Chronic Unclassified (1 source) Ventricular tachycardia, unspecified (Multi); Translations: [Ventricular tachycardia, unspecified (Multi)] Onset: 05-08-2024 Unclassified (1 source) Supraventricular tachycardia, unspecified (CMS-HCC); Translations: [Supraventricular tachycardia, unspecified (CMS-HCC)] Onset: 05-08-2024 Past or Other Problems Problem Classification Problem Date Documented Date Episodic/Chronic Cardiac dysrhythmias (17 sources) Palpitations - rapid; Translations: [Palpitations] Onset: 02-07-2025 01-12-2022 Episodic Nausea and vomiting (5 sources) Diarrhea and vomiting; Translations: [Vomiting, unspecified] Onset: 12-06-2024 11-11-2024 Episodic Unclassified (1 source) Ventricular tachycardia, unspecified (Multi); Translations: [Ventricular tachycardia, unspecified (Multi)] Onset: 05-08-2024 Unclassified (1 source) Supraventricular tachycardia, unspecified (CMS-HCC); Translations: [Supraventricular tachycardia, unspecified (CMS-HCC)] Onset: 05-08-2024 Viral infection (16 sources) Disease caused by 2019-nCoV; Translations: [COVID-19] Onset: 08-30-2021 12-30-2021 Episodic Results Test Name Value Interpretation Reference Range Facility PAP IG HPV APTIMA 16/18,45on 06-09-2025 ADEQ Comment Normal . [facility] Comment on above: Order Comment: Speci men Comment: [id number] Comment: Source.............CervixSpecimen Comment: No. of containers..01 ThinPrep Vial Result Comment: Sati sfactory for evaluation. Endocervical and/or squamous metaplastic cells (endocervical component) are present. Performed By: #### L 7400.0280 ####[facility] [address] [place], [place], [id number] COMM . Normal . [facility] Comment on above: Order Comment: Speci men Comment: [id number] Comment: Source.............CervixSpecimen Comment: No. of containers..01 ThinPrep Vial Performed By: #### L 7400.0280 ####[facility] [address] [place], [address] COMMENT Comment Normal . [facility] Comment on above: Order Comment: Speci men Comment: [id number] Comment: Source.............CervixSpecimen Comment: No. of containers..01 ThinPrep Vial Result Comment: This liquid based ThinPrep(R) pap test was screened with the use of an image guided system. Performed By: #### L 7400.0280 ####[facility] [address] [place], [address] DIAG Comment Normal . [facility] Comment on above: Order Comment: Speci men Comment: [id number] Comment: Source.............CervixSpecimen Comment: No. of containers..01 ThinPrep Vial Result Comment: NEGA TIVE FOR INTRAEPITHELIAL LESION OR MALIGNANCY. Performed By: #### L 7400.0280 ####[facility] [address] [place], [address] HPV APTIMA, HR Negative Normal Negative [facility] Comment on above: Order Comment: Speci men Comment: [id number] Comment: Source.............CervixSpecimen Comment: No. of containers..01 ThinPrep Vial Result Comment: This nucleic acid amplification test detects fourteen high- risk HPV types (16,18,31,33,35,39,45,51,52,56,58,59,66,68) without differentiation. Performed By: #### L 7400.0280 ####[facility] [address] [place], [address] HPV Rosanne Rfx Comment Normal . [facility] Comment on above: Order Comment: Speci men Comment: [id number] Comment: Source.............CervixSpecimen Comment: No. of containers..01 ThinPrep Vial Result Comment: Crit nyla not met, HPV Genotype not performed. Performed at: - [facility] [id number] Chisel Grinder: Trina Apple MD, Phone: [phone] Performed at: = - [facility] [address] [id number] Chisel Grinder: Trina Apple MD, Phone: [phone] Performed By: #### L 7400.0280 ####[facility] [address] [place], [address] PAPSMR Comment Normal . [facility] Comment on above: Order Comment: Speci men Comment: [id number] Comment: Source.............CervixSpecimen Comment: No. of containers..01 ThinPrep Vial Result Comment: The Pap smear is a screening test designed to aid in the detection of premalignant and malignant conditions of the uterine cervix. It is not a diagnostic procedure and should not be used as the sole means of detecting cervical cancer. Both false-positive and false-negative reports do occur. Performed By: #### L 7400.0280 ####[facility] [address] [place], [address] PERFORM Comment Normal . [facility] Comment on above: Order Comment: Speci men Comment: [id number] Comment: Source.............CervixSpecimen Comment: No. of containers..01 ThinPrep Vial Result Comment: Aneudy Mckeon, Director Product Performed By: #### L 7400.0280 ####[facility] [address] [place], [address] Cervical or vaginal specimen microscopic examination by liquid based cytology (reportOrdered By: Ellie Perdomo on 06-04-2025 Cytology report Cyto stain.thin prep Doc (Cvx/Vag) Comment . [facility] Comment on above: Criteria not met, HP V Genotype not performed.Performed at: - [facility] [id number] Director: Trina Apple MD, Phone: [phone] at: = - [facility] [id number] Director: Trina Apple MD, Phone: [phone] Cervical or vagninal specime n microscopic examination by cytology stain (reported asOrdered By: Ellie Perdomo on 06-04-2025 Cytology report Cyto stain Doc (Cvx/Vag) Comment . [facility] Comment on above: The Pap smear is a s creening test designed to aid in thedetection of premalignant and malignant conditions of theuterine cervix. It is not a diagnostic procedure andshould not be used as the sole means of detecting cervicalcancer. Both false-positive and false-negative reports dooccur. Detection in cervical specim en of any of human papilloma virus (HPV) 16, 18, 31, 33,Ordered By: Ellie Perdomo on 06-04-2025 HPV 16+18+31+33+35+39+45+51+ 52+56+58+59+66+68 DNA Probe+sig amp Ql (Cvx) Negative Negative [facility] Comment on above: This nucleic acid am plification test detects fourteen high-risk HPV types (16,18,31,33,35,39,45,51,52,56,58,59,66,68)without differentiation. Laboratory - CytologyOrdered By: Ellie Perdomo on 06-04-2025 Director Product Cyto stain Nom (Cvx/Vag) [ID] Comment . [facility] Comment on above: [facility] - Miscellaneous t estsOrdered By: Ellie Perdomo on 06-04-2025 Service comment (Unsp spec) [Interp] . . [facility] No Panel InformationOrdered By: Ellie Perdomo on 06-04-2025 Pap Smear Specimen Adequacy Comment . [facility] Comment on above: Satisfactory for erica luation. Endocervical and/or squamous metaplasticcells (endocervical component) are present. [employer] Office Visit Reporton 06-04-2025 [employer] Office Visit Report [facility] [address], [address] [place] [address] OFFICE VISIT Date of Service: 06/04/25 MR#: [id number] Acct: [id number] Name: IRISH VAZQUEZ Rep #: [id number] : 1965 Provider: JESSE Knapp ams Age/Sex: 60/F Location: [facility] Status: Signed Intake Vital Signs 09/09/24 08:33 02/26/25 14:49 06/04/25 08:21 06/04/25 08:26 Height 5 ft 4 in 5 ft 4 in 5 ft 4 in 5 ft 4 in Weight: 220 lb 233 lb BMI 37.8 39.9 BP 116/67 109/71 Blood Pressure Location Lt brachial Lt brachial Position Sitting Sitting Respiration 16 Pulse 77 Pulse Source NIBP Intake 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: No Is patient in pain?: No Allergies erythromycin base Allergy (Intermediate, Verified 06/04/25 08:22) hives Medications ???Medication ???Instructions ???Recorded ???Confirmed ???Type levothyroxine 25 mcg tablet 25 mcg PO DAILY 01/12/22 06/04/25 History metformin 500 mg tablet,extended 1,500 mg PO QAM 01/12/22 06/04/25 History release 24 hr spironolactone 50 mg tablet 50 mg PO DAILY 01/12/22 06/04/25 H istory omega-3 fatty acids 1,000 mg 1,000 mg PO DAILY 04/03/24 5 History capsule omeprazole 40 mg capsule,delayed 40 mg PO QDAY 09/09/24 06/04/25 Hi story release metoprolol succinate 25 mg 25 mg PO QHS #90 tabs 11/11/24 Rx tablet,extended release 24 hr cholecalciferol (vitamin D3) 25 25 mcg PO QDAY 02/26/25 06/04/25 H istory mcg (1,000 unit) tablet magnesium oxide mg PO QPM 02/26/25 06/04/25 Histor y Post menopausal: No Patient : No : No Do you think of yourself as: straight/heterosexual Current gender identity: female Control Method: tubal PFSH Medical History (Updated 06/04/25 @ 09:01 by Ellie Perdomo CNM) Simple cyst of breast Non-ischemic cardiomyopathy Type 2 diabetes mellitus Hypothyroidism Obesity Nonsustained paroxysmal ventricular tachycardia Surgical History (Updated 06/04/25 @ 08:27 by Yessy Anderson) S/P Family History (Updated 06/04/25 @ 08:30 by Yessy Anderson) Grandmother Arthritis Sister Bleeding disorder Father Diabetes Heart disease Hypertension High cholesterol Brother CVA (cerebral vascular accident) Social History (Updated 06/04/25 @ 08:34 by Yessy Anderson) adopted: No household members: family housing: house number of children: 4 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 pets and animals: Yes pets and animals: cat(s) and dog(s) history of recent travel: No sexually active: Yes Smoking Status: Never smoker second hand exposure: No alcohol intake: never substance use type: does not use well-balanced diet: daily or most days caffeine: Yes Type: carbonated beverages and coffee eating out: other details: 2-3/month during the past year weight has: remained stable what type of physical activity do you participate in: none shakir/oriental orthodox: Rastafarian seatbelt use: always do you feel safe at home: Yes additional social history: - Robin HPI Encounter for routine gynecological examination Details: IRISH VAZQUEZ is a 60 year old who presents for new annual exam. Previously saw [facility]- Having menses about every 9-10 months with spotting every 2 months. Bleeding will ebb and flow between br ight red and brown. Has concerns that she is still having vaginal bleeding at age 60. discussed bleeding warning signs after menopause. Last PAP: 2021 History of abnormal PAP: yes 2020- Last mammogram: 4-5 years ago History of abnormal mammogram: benign cysts Colon cancer screenin Other preventative health care screenings: PCP Female Reproductive History Last Menstrual Period: 01/20/25 Questions: metorrhagia: No, sexually active: Yes, dyspareunia: No and PCB: No Menopausal Symptoms: Yes hot flashes and Yes night sweats ROS Const Constitutional: Reports system reviewed and no additional complaints, except as documented and night sweats Cardio Card: Reports system reviewed and no additional complaints, except as documented Resp Resp: Reports system reviewed and no additional complaints, except as documented GI GI: Reports system reviewed and no additional complaints, except as documented : Reports system reviewed and no additional complaints, except as documented and hot flashes; Denies difficulty voiding, dysuria or urinary frequency Skin Skin/Breast: Reports system reviewed and no additional complaints, except as documented Neuro Neuro: Reports system reviewed and no additional complaints, except as documented Psych Psych: Reports system reviewed and no additional complaints, except as documented; Denies anhedonia, anxiety or depression Exam Const General (more content not included)... Normal [facility] Cardiology Visit Reporton Cardiology Visit Report [facility] [place] [address] OFFICE VISIT Date of Service: 02/26/25 MR#: [id number] Acct: [id number] Name: IRISH VAZQUEZ Rep #: [id number] : 1965 Provider: RAZ Rico Age/Sex: 60/F Location: [facility] Status: Signed HPI HPI History of Present Illness Details: Irish Vazquez is a 60 year-old lady with a history of obesity, diabetes mellitus who contracted COVID in Aug 2021. She has some atypical chest pain, event monitor was ordered by PCP. Event monitor she was noted to have an episode of a narrow complex tachycardia as well as a 7 beat run of a wide-complex tachycardia noted at 4 AM. This was asymptomatic. There was another episode of a narrow complex tachycardia which was also 7 beats with a rate of approximately 150 bpm. She did have sinus tachycardia noted for more than 22% of the duration. 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 She was started on Toprol 50 mg. 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 Patient had a 48-hour Holter monitor in October 2023 which demonstrated an average heart rate of 93 bpm, minimum heart rate 66 bpm, maximum heart rate 141 bpm. Total of 72 premature ventricular ectopic beats, a total of 20 premature supraventricular ectopic beats noted. Patient underwent a coronary calcium score in April 2024 at [facility]. Her total score was 9.76. pt did start Mg+ and metoprolol at night. These seemed to have helped with her HR. Intake Vital Signs 09/09/24 08:33 02/26/25 14:49 Height 5 ft 4 in 5 ft 4 in Weight: 220 lb BMI 37.8 BP 116/67 Blood Pressure Location Lt brachial Position Sitting Respiration 16 Pulse 77 Pulse Source NIBP Intake Visit Reasons: 4 M Rug Cutter Required: No Is patient in pain?: No Allergies erythromycin base Allergy (Intermediate, Verified 02/26/25 14:53) hives Medications ???Medication ???Instructions ???Recorded ???Confirmed ???Type levothyroxine 25 mcg tablet 25 mcg PO DAILY 01/12/22 02/26/25 History metformin 500 mg tablet,extended 1,500 mg PO QAM 01/12/22 02/26/25 History release 24 hr spironolactone 50 mg tablet 50 mg PO DAILY 01/12/22 02/26/25 H istory omega-3 fatty acids 1,000 mg 1,000 mg PO DAILY 04/03/24 5 History capsule omeprazole 40 mg capsule,delayed 40 mg PO QDAY 09/09/24 02/26/25 Hi story release metoprolol succinate 25 mg 25 mg PO QHS #90 tabs 11/11/24 Rx tablet,extended release 24 hr cholecalciferol (vitamin D3) 25 25 mcg PO QDAY 02/26/25 02/26/25 H istory mcg (1,000 unit) tablet magnesium oxide mg PO QPM 02/26/25 02/26/25 Histor y Ejection fraction %: 55 Have you fallen in the past year?: No Nurse's Note: Had Blood Flow Screening on 02/21/25. Asking about results. [facility] Medical History Non-ischemic cardiomyopathy Type 2 diabetes mellitus Hypothyroidism Obesity Nonsustained paroxysmal ventricular tachycardia Social History (Updated 02/26/25 @ 14:57 by Ada Gomez) Smoking Status: Never smoker alcohol intake: never substance use type: does not use caffeine: Yes Type: carbonated beverages and coffee ROS Const Const: Negative for fatigue or weakness Eyes Eyes: Negative for change in vision ENT ENT: Negative for dizziness or balance problems Cardio Chest Pain: No Palpitations: Yes (None recently) feels like its: fast Edema: None Resp Respiratory: Negative for SOB with activity, SOB at rest or SOB orthopnea SOB lying down GI GI: Negative nausea or heartburn Musc Musc: Negative for balance problems Neuro Neuro: Negative for dizziness, lightheadedness, near syncope, syncope or weakness Endo Endo: Negative for fatigue Cardiology Exam Const Appearance: cooperative, healthy appearing, comfortable, no acute distress and well developed Orientation: alert, awake and oriented x3 Head Head: normal to inspection Ears: hearing grossly normal bilaterally Nose: external nose normal Face and Sinus: face symmetric Mouth: oral mucosae normal, lip normal and moist mucous membranes Eyes General: appearance normal, both eyes and all related structures Eyelids: eyelids normal Conjunctivae: conjunctivae normal Pupils: PERRL EOM: EOM intact bilaterally Neck Neck: normal visual inspection and trachea midline; Negative no JVD Carotids: Negative bruit Chest Chest inspection: normal inspection of the chest Auscultation: Bilateral: Clear to Auscultation Cardio Palpation: normal PMI Rate: regular rate Rhythm: regular rhythm Heart sounds: S1 normal and S2 normal; Negative rub, gallop or murmur GI GI: soft, no hepatosplenomegaly and nevin (more content not included)... Normal [facility] Anion gap in Serum or Plasma Ordered By: Marielle Grissom on 01-24-2025 Anion gap [Moles/Vol] 17 mmol/L High 03-27 [facility] BUN/creatinine ratioOrdered By: Marielle Grissom on 01-24-2025 Urea nitrogen/Creatinine [Mass ratio] 15.0 mg/mg 09-01 [facility] Basic Metabolic Profile (BMP )on 01-24-2025 BUN/CRE 15.0 RATIO Normal 09-01 [facility] Comment on above: Performed By: #### L 500.2500, L501.5200, L100.0500, L501.9520 ####[facility] [address] [place], [address] Calcium [Mass/Vol] 9.5 mg/dL Normal 7.6-11.0 [facility] Comment on above: Performed By: #### L 500.2500, L501.5200, L100.0500, L501.9520 ####[facility] [address] [place], [address] Chloride [Moles/Vol] 98 mmol/L Normal 98-108 [facility] Comment on above: Performed By: #### L 500.2500, L501.5200, L100.0500, L501.9520 ####[facility] [address] [place], [address] CO2 [Moles/Vol] 20.0 mmol/L Low 21.0-32.0 [facility] Comment on above: Performed By: #### L 500.2500, L501.5200, L100.0500, L501.9520 ####[facility] [address] [place], [address] Creatinine [Mass/Vol] 0.81 mg/dL Normal 0.70-1.20 [facility] Comment on above: Performed By: #### L 500.2500, L501.5200, L100.0500, L501.9520 ####[facility] [address] [place], [address] GAP 17 High 5-15 [facility] Comment on above: Performed By: #### L 500.2500, L501.5200, L100.0500, L501.9520 ####[facility] [address] [place], [address] GFR/1.73 sq M.predicted among non-blacks MDRD (S/P/Bld) [Vol rate/Area] 84 mL/min/{1.73_m2} Normal >60 [facility] Comment on above: Result Comment: mL/m in/1.73m2 CKD-EPI Creatinine Equation (2020) Performed By: #### L 500.2500, L501.5200, L100.0500, L501.9520 ####[facility] [address] [place], [address] Glucose [Mass/Vol] 171 mg/dL High 70-99 [facility] Comment on above: Performed By: #### L 500.2500, L501.5200, L100.0500, L501.9520 ####[facility] [address] [place], [address] Potassium [Moles/Vol] 3.8 mmol/L Normal 3.3-5.1 [facility] Comment on above: Performed By: #### L 500.2500, L501.5200, L100.0500, L501.9520 ####[facility] [address] [place], [address] Sodium [Moles/Vol] 134 mmol/L Normal 133-145 [facility] Comment on above: Performed By: #### L 500.2500, L501.5200, L100.0500, L501.9520 ####[facility] [address] [place], [address] Urea nitrogen [Mass/Vol] 12 mg/dL Normal 4-19 [facility] Comment on above: Performed By: #### L 500.2500, L501.5200, L100.0500, L501.9520 ####[facility] [address] [place], [address] CBC-Complete Blood Cnt No Di ffon 01-24-2025 Erythrocyte distribution width (RBC) [Ratio] 14.6 % Normal 11.6-14.6 [facility] Comment on above: Performed By: #### L 500.2500, L501.5200, L100.0500, L501.9520 ####[facility] [address] [place], [address] Hematocrit (Bld) [Volume fraction] 39.5 % Normal 37-47 [facility] Comment on above: Performed By: #### L 500.2500, L501.5200, L100.0500, L501.9520 ####[facility] [address] [place], [address] Hemoglobin (Bld) [Mass/Vol] 13.4 g/dL Normal 12.0-15.0 [facility] Comment on above: Performed By: #### L 500.2500, L501.5200, L100.0500, L501.9520 ####[facility] [address] [place], [address] MCH (RBC) [Entitic mass] 28.9 pg Normal 27.0-32.0 [facility] Comment on above: Performed By: #### L 500.2500, L501.5200, L100.0500, L501.9520 ####[facility] [address] [place], [address] MCHC (RBC) [Mass/Vol] 33.9 g/dL Normal 32-36 [facility] Comment on above: Performed By: #### L 500.2500, L501.5200, L100.0500, L501.9520 ####[facility] [address] [place], [address] MCV (RBC) [Entitic vol] 85.1 fL Normal 81-99 [facility] Comment on above: Performed By: #### L 500.2500, L501.5200, L100.0500, L501.9520 ####[facility] [address] [place], [address] Platelet mean volume (Bld) [Entitic vol] 10.0 fL Normal 6.2-12.0 [facility] Comment on above: Performed By: #### L 500.2500, L501.5200, L100.0500, L501.9520 ####[facility] [address] [place], [address] Platelets (Bld) [#/Vol] 239 10*3/uL Normal 150-450 [facility] Comment on above: Performed By: #### L 500.2500, L501.5200, L100.0500, L501.9520 ####[facility] [address] [place], [address] RBC (Bld) [#/Vol] 4.64 10*6/uL Normal 4.2-5.4 [facility] Comment on above: Performed By: #### L 500.2500, L501.5200, L100.0500, L501.9520 ####[facility] [address] [place], [address] RDW SD 45.7 fl High 35.1-43.9 [facility] Comment on above: Performed By: #### L 500.2500, L501.5200, L100.0500, L501.9520 ####[facility] [address] [place], [address] WBC (Bld) [#/Vol] 12.5 10*3/uL High 4.4-11.0 [facility] Comment on above: Performed By: #### L 500.2500, L501.5200, L100.0500, L501.9520 ####[facility] [address] [place], [address] Carbon dioxide, total [Moles /volume] in Central venous bloodOrdered By: Marielle Grissom on 01-24-2025 CO2 [Moles/Vol] 20.0 mmol/L Low 21.0-32.0 [facility] Chloride assayOrdered By: Essie Grissom on 01-24-2025 Chloride [Moles/Vol] 98 mmol/L 98-108 [facility] Erythrocyte distribution wid th ratioOrdered By: Marielle Grissom on 01-24-2025 Erythrocyte distribution width (RBC) [Ratio] 14.6 % 11.6-14.6 [facility] Erythrocyte distribution wid th standard deviationOrdered By: Marielle Grissom on 01-24-2025 Erythrocyte distribution width (RBC) [Entitic vol] 45.7 fL High 35.1-43.9 [facility] GFR/1.73 sq M.predicted melo g non-blacks MDRD (S/P/Bld) [Vol rate/Area]Ordered By: Marielle Grissom on 01-24-2025 Estimated GFR (MDRD) Non-Af Amer 84 >60 [facility] Comment on above: mL/min/1.73m2 CKD-EP I Creatinine Equation (2020) Hematocrit Auto (Bld) [Volum e fraction]Ordered By: Marielle Grissom on 01-24-2025 Hematocrit (Bld) [Volume fraction] 39.5 % 37-47 [facility] Hemoglobin measurementOrdere d By: Marielle Grissom on 01-24-2025 Hemoglobin (Bld) [Mass/Vol] 13.4 g/dL 12.0-15.0 [facility] MCV (mean corpuscular volume ) determinationOrdered By: Marielle Grissom on 01-24-2025 MCV (RBC) [Entitic vol] 85.1 fL 81-99 [facility] Magnesiumon 01-24-2025 Magnesium [Mass/Vol] 2.1 mg/dL Normal 1.5-2.2 [facility] Comment on above: Performed By: #### L 500.2500, L501.5200, L100.0500, L501.9520 ####[facility] [address] [place], [address] Magnesium (Unsp spec) [Mass/ Vol]Ordered By: Marielle Grissom on 01-24-2025 Magnesium [Mass/Vol] 2.1 mg/dL 1.5-2.2 [facility] Mean corpuscular hemoglobin (MCH) determinationOrdered By: Marielle Grissom on 01-24-2025 MCH (RBC) [Entitic mass] 28.9 pg 27.0-32.0 [facility] Mean corpuscular hemoglobin concentration (MCHC) determinationOrdered By: Marielle Grissom on 01-24-2025 MCHC (RBC) [Mass/Vol] 33.9 g/dL 32-36 [facility] Mean platelet volume determi nationOrdered By: Marielle Grissom on 01-24-2025 Platelet mean volume (Bld) [Entitic vol] 10.0 fL 6.2-12.0 [facility] Platelet countOrdered By: Essie Grissom on 01-24-2025 Platelets (Bld) [#/Vol] 239 10*3/uL 150-450 [facility] Potassium (Unsp spec) [Mass/ Vol]Ordered By: Marielle Grissom on 01-24-2025 Potassium [Moles/Vol] 3.8 mmol/L 3.3-5.1 [facility] RBC Auto (Bld) [#/Vol]Ordere d By: Marielle Grissom on 01-24-2025 RBC (Bld) [#/Vol] 4.64 10*6/uL 4.2-5.4 [facility] Serum creatinine measurement (mass/volume)Ordered By: Marielle Grissom on 01-24-2025 Creatinine [Mass/Vol] 0.81 mg/dL 0.70-1.20 [facility] Serum glucose measurement (m ass/volume)Ordered By: Marielle Grissom on 01-24-2025 Glucose [Mass/Vol] 171 mg/dL High 70-99 [facility] Serum or plasma calcium kecia urement (mass/volume)Ordered By: Marielle Grissom on 01-24-2025 Calcium [Mass/Vol] 9.5 mg/dL 7.6-11.0 [facility] Serum or plasma urea nitroge n measurement (mass/volume)Ordered By: Marielle Grissom on 01-24-2025 Urea nitrogen [Mass/Vol] 12 mg/dL 4-19 [facility] Sodium levelOrdered By: Jhoan Grissom on 01-24-2025 Sodium [Moles/Vol] 134 mmol/L 133-145 [facility] TSH DL <= 0.005 mIU/L QnOrde red By: Marielle Grissom on 01-24-2025 Thyroid Stimulating Hormone (TSH) 1.400 uIU/mL 0.300-4.200 [facility] Thyroid Stim Hormone (TSH)on 01-24-2025 TSH 1.400 uIU/mL Normal 0.300-4.200 [facility] Comment on above: Performed By: #### L 500.2500, L501.5200, L100.0500, L501.9520 ####[facility] [address] [place], [place], [id number] White blood cell (WBC) count Ordered By: Marielle Grissom on 01-24-2025 WBC (Bld) [#/Vol] 12.5 10*3/uL High 4.4-11.0 [facility] LDL, Directon 01-01-2025 Cholesterol in LDL [Mass/Vol] 131 mg/dL High 0-99 [facility] Comment on above: Result Comment: Perf ormed at: - [facility] [address] [id number] Chisel Grinder: Hector Fotser PhD, Phone: [phone] Performed By: #### L 501.4405, L500.2500, L501.9985, L501.4100, L3300.4490, L500.4100, L506.0400, L501.9520 ####[facility] [address] [place], [place], [id number] COMMENT TNP Normal . [facility] Comment on above: Performed By: #### L 501.4405, L500.2500, L501.9985, L501.4100, L3300.4490, L500.4100, L506.0400, L501.9520 ####[facility] [address] [place], [place], [phone] AST(SGOT)on 12-31-2024 AST [Catalytic activity/Vol] 15 U/L Normal 15-37 [facility] Comment on above: Performed By: #### L 501.4405, L500.2500, L501.9985, L501.4100, L3300.4490, L500.4100, L506.0400, L501.9520 #### [facility] [address] [place], [address] Alanine Aminotransferas (SGP T)on 12-31-2024 ALT [Catalytic activity/Vol] 23 U/L Normal 13-56 [facility] Comment on above: Performed By: #### L 501.4405, L500.2500, L501.9985, L501.4100, L3300.4490, L500.4100, L506.0400, L501.9520 #### [facility] [address] [place], [address] Basic Metabolic Profile (BMP )on 12-31-2024 BUN/CRE 17.6 RATIO Normal 10-20 [facility] Comment on above: Performed By: #### L 501.4405, L500.2500, L501.9985, L501.4100, L3300.4490, L500.4100, L506.0400, L501.9520 #### [facility] [address] [place], [address] CA,Total 9.3 mg/dL Normal 8.5-10.1 [facility] Comment on above: Performed By: #### L 501.4405, L500.2500, L501.9985, L501.4100, L3300.4490, L500.4100, L506.0400, L501.9520 #### [facility] [address] [place], [address] Chloride [Moles/Vol] 104 mmol/L Normal 98-107 [facility] Comment on above: Performed By: #### L 501.4405, L500.2500, L501.9985, L501.4100, L3300.4490, L500.4100, L506.0400, L501.9520 #### [facility] [address] [place], [address] CO2 [Moles/Vol] 27.0 mmol/L Normal 21.0-32.0 [facility] Comment on above: Performed By: #### L 501.4405, L500.2500, L501.9985, L501.4100, L3300.4490, L500.4100, L506.0400, L501.9520 #### [facility] [address] [place], [place], [phone] ([address]) Creatinine [Mass/Vol] 0.74 mg/dL Normal 0.55-1.02 [facility] Comment on above: Result Comment: The validity of the calculated GFR GFRAA in patients over 70 years has not been determined. Clinical correlation is essential. Performed By: #### L 501.4405, L500.2500, L501.9985, L501.4100, L3300.4490, L500.4100, L506.0400, L501.9520 #### [facility] [address] [place], [place], [phone] (164) EST GFR - AA 104 mL/min Normal >60 [facility] Comment on above: Result Comment: Afri can [place]ian GFR Calc Performed By: #### L 501.4405, L500.2500, L501.9985, L501.4100, L3300.4490, L500.4100, L506.0400, L501.9520 #### [facility] [address] [place], [place], [phone] GAP 8 Normal 5-15 [facility] Comment on above: Performed By: #### L 501.4405, L500.2500, L501.9985, L501.4100, L3300.4490, L500.4100, L506.0400, L501.9520 #### [facility] [address] [place], [place], [phone] GFR/1.73 sq M.predicted among non-blacks MDRD (S/P/Bld) [Vol rate/Area] 86 mL/min/{1.73_m2} Normal >60 [facility] Comment on above: Result Comment: Non- GFR Calc Performed By: #### L 501.4405, L500.2500, L501.9985, L501.4100, L3300.4490, L500.4100, L506.0400, L501.9520 #### [facility] [address] [place], [address] Glucose [Mass/Vol] 90 mg/dL Normal 74-106 [facility] Comment on above: Performed By: #### L 501.4405, L500.2500, L501.9985, L501.4100, L3300.4490, L500.4100, L506.0400, L501.9520 #### [facility] [address] [place], [address] Potassium [Moles/Vol] 4.5 mmol/L Normal 3.5-5.1 [facility] Comment on above: Performed By: #### L 501.4405, L500.2500, L501.9985, L501.4100, L3300.4490, L500.4100, L506.0400, L501.9520 #### [facility] [address] [place], [address] Sodium [Moles/Vol] 139 mmol/L Normal 136-145 [facility] Comment on above: Performed By: #### L 501.4405, L500.2500, L501.9985, L501.4100, L3300.4490, L500.4100, L506.0400, L501.9520 #### [facility] [address] [place], [address] Urea nitrogen [Mass/Vol] 13 mg/dL Normal 7-18 [facility] Comment on above: Performed By: #### L 501.4405, L500.2500, L501.9985, L501.4100, L3300.4490, L500.4100, L506.0400, L501.9520 #### [facility] [place], [address] Blood urea nitrogen (BUN)/cr eatinine ratioOrdered By: Katelyn Galicia on 12-31-2024 Urea nitrogen/Creatinine [Mass ratio] 17.6 mg/mg 10-20 [facility] Carbon dioxide measurementOr dered By: Katelyn Galicia on 12-31-2024 CO2 [Moles/Vol] 27.0 mmol/L 21.0-32.0 [facility] Chloride measurementOrdered By: Katelyn Galicia on 12-31-2024 Chloride [Moles/Vol] 104 mmol/L 98-107 [facility] Cholesterol in LDL Direct as say [Mass/Vol]Ordered By: Katelyn Galicia on 12-31-2024 LDL Cholesterol Direct 131 mg/dL High 0-99 [facility] Comment on above: Performed at: [address] [id number] Director: Hector Foster PhD, Phone: [phone] Direct serum free thyroxine (FT4) measurementOrdered By: Katelyn Galicia on 12-31-2024 Free T4 [Mass/Vol] 0.93 ng/dL 0.76-1.46 [facility] Estimated glomerular filtrat ion rate (GFR) AmericanOrdered By: Katelyn Galicia on 12-31-2024 Estimated GFR (MDRD) Amer 104 mL/min >60 [facility] Comment on above: GFR Calc Glomerular filtration rate ( GFR) estimationOrdered By: Katelyn Galicia on 12-31-2024 Estimated GFR (MDRD) Non-Af Amer 86 mL/min >60 [facility] Comment on above: Non- GFR Calc Glucose measurementOrdered B y: Katelyn Galicia on 12-31-2024 Glucose [Mass/Vol] 90 mg/dL 74-106 [facility] Hemoglobin A1con 12-31-2024 HbA1c (Bld) [Mass fraction] 5.6 % Normal 3.8-5.6 [facility] Comment on above: Result Comment: Norm al < 5.7 % Prediabetic 5.7 - 6.4 % Diabetic >or= 6.5 % Please note range changes. Performed By: #### L 501.4405, L500.2500, L501.9985, L501.4100, L3300.4490, L500.4100, L506.0400, L501.9520 ####[facility] [address] [place], [place], [phone] Hemoglobin A1c percentageOrd ered By: Katelyn Galicia on 12-31-2024 HbA1c (Bld) [Mass fraction] 5.6 % 3.8-5.6 [facility] Comment on above: Normal < 5.7 % Predi abetic 5.7 - 6.4 % Diabetic >or= 6.5 % Please note range changes. High density lipoprotein (HD L) measurementOrdered By: Katelyn Galicia on 12-31-2024 Cholesterol in HDL [Mass/Vol] 37 mg/dL Low >40 [facility] Comment on above: The drugs N-Acetylcy steine and Metamizole may falsely depress this assay. Reference Range HDL <40 mg/dL Low HDL Cholesterol HDL >or= 60 mg/dL High HDL Cholesterol Laboratory - Chemistry and C hemistry - challengeOrdered By: Katelyn Galicia on 12-31-2024 AST [Catalytic activity/Vol] 15 U/L 15-37 [facility] Lipid Profileon 12-31-2024 Cholesterol [Mass/Vol] 181 mg/dL Normal 200 [facility] Comment on above: Result Comment: <200 mg/dL Desirable 200-240 mg/dL Borderline >240 mg/dL High Risk Performed By: #### L 501.4405, L500.2500, L501.9985, L501.4100, L3300.4490, L500.4100, L506.0400, L501.9520 #### [facility] [address] [place], [place], [id number] Cholesterol in HDL [Mass/Vol] 37 mg/dL Low [facility] Comment on above: Result Comment: The drugs N-Acetylcysteine and Metamizole may falsely depress this assay. Reference Range HDL <40 mg/dL Low HDL Cholesterol HDL >or= 60 mg/dL High HDL Cholesterol Performed By: #### L 501.4405, L500.2500, L501.9985, L501.4100, L3300.4490, L500.4100, L506.0400, L501.9520 #### [facility] [address] [place], [address] Cholesterol in LDL [Mass/Vol] 116 mg/dL Normal 0-130 [facility] Comment on above: Performed By: #### L 501.4405, L500.2500, L501.9985, L501.4100, L3300.4490, L500.4100, L506.0400, L501.9520 #### [facility] [address] [place], [address] Cholesterol in VLDL [Mass/Vol] 28 mg/dL Normal 5-40 [facility] Comment on above: Performed By: #### L 501.4405, L500.2500, L501.9985, L501.4100, L3300.4490, L500.4100, L506.0400, L501.9520 #### [facility] [address] [place], [address] Triglyceride [Mass/Vol] 139 mg/dL Normal [facility] Comment on above: Result Comment: The drugs N-Acetylcysteine and Metamizole may falsely depress this assay. Serum Triglycerides Reference Interval Normal <150 mg/dL Borderline high 150 - 199 mg/dL High 200 - 499 mg/dL Very High > or = 500 mg/dL Performed By: #### L 501.4405, L500.2500, L501.9985, L501.4100, L3300.4490, L500.4100, L506.0400, L501.9520 #### [facility] [address] [place], [address] Low density lipoprotein (LDL ) cholesterol measurementOrdered By: Katelyn Galicia on 12-31-2024 Cholesterol in LDL [Mass/Vol] 116 mg/dL 0-130 [facility] Potassium measurementOrdered By: Katelyn Galicia on 12-31-2024 Potassium [Moles/Vol] 4.5 mmol/L 3.5-5.1 [facility] Serum anion gap measurementO rdered By: Katelyn Galicia on 12-31-2024 Anion gap [Moles/Vol] 8 mmol/L 5-15 [facility] Serum or plasma alanine whittington otransferase (ALT) measurementOrdered By: Katelyn Galicia on 12-31-2024 ALT [Catalytic activity/Vol] 23 U/L 13-56 [facility] Serum or plasma calcium kecia urement (mass/volume)Ordered By: Katelyn Galicia on 12-31-2024 Calcium [Mass/Vol] 9.3 mg/dL 8.5-10.1 [facility] Serum or plasma cholesterol measurement (mass/volume)Ordered By: Katelyn Galicia on 12-31-2024 Cholesterol [Mass/Vol] 181 mg/dL <200 [facility] Comment on above: <200 mg/dL Desirable 200-240 mg/dL Borderline >240 mg/dL High Risk Serum or plasma creatinine m easurement (mass/volume)Ordered By: Katelyn Galicia on 12-31-2024 Creatinine [Mass/Vol] 0.74 mg/dL 0.55-1.02 [facility] Comment on above: The validity of the calculated GFR & GFRAA in patients over 70 years has not been determined. Clinical correlation is essential. Serum or plasma urea nitroge n measurement (mass/volume)Ordered By: Katelyn Galicia on 12-31-2024 Urea nitrogen [Mass/Vol] 13 mg/dL 18 [facility] Service comment (Unsp spec) [Interp]Ordered By: Katelyn Galicia on 12-31-2024 LDL Cholesterol Direct Comment TNP [facility] Comment on above: Test not performed Sodium levelOrdered By: Kole Galicia on 12-31-2024 Sodium [Moles/Vol] 139 mmol/L 136-145 [facility] T4 Free Directon 12-31-2024 T4 FREE DIRECT 0.93 ng/dL Normal 0.76-1.46 [facility] [facility] Comment on above: Performed By: #### L 501.4405, L500.2500, L501.9985, L501.4100, L3300.4490, L500.4100, L506.0400, L501.9520 ####[facility] [address] [place], [place], [address] TSH QnOrdered By: Katelyn mckinnon on 12-31-2024 Thyroid Stimulating Hormone (TSH) 2.900 uIU/mL 0.358-3.740 [facility] Thyroid Stim Hormone (TSH)on 12-31-2024 TSH 2.900 uIU/mL Normal 0.358-3.740 [facility] Comment on above: Performed By: #### L 501.4405, L500.2500, L501.9985, L501.4100, L3300.4490, L500.4100, L506.0400, L501.9520 ####[facility] [address] [place], [place], [id number] Triglycerides measurementOrd ered By: Katelyn Galicia on 12-31-2024 Triglyceride [Mass/Vol] 139 mg/dL <199 [facility] Comment on above: The drugs N-Acetylcy steine and Metamizole may falsely depress this assay.Serum Triglycerides Reference Interval Normal <150 mg/dL Borderline high 150 - 199 mg/dL High 200 - 499 mg/dL Very High > or = 500 mg/dL Very low density lipoprotein (VLDL) cholesterol measurementOrdered By: Katelyn Galicia on 12-31-2024 VLDL Cholesterol 28 mg/dL 5-40 [facility] Basic Metabolic Profile (BMP )on 11-11-2024 BUN/CRE 15.3 RATIO Normal 10-20 [facility] Comment on above: Performed By: #### L 500.2500, L501.5200 #### [facility] [address] [place], [address] CA,Total 9.2 mg/dL Normal 8.5-10.1 [facility] Comment on above: Performed By: #### L 500.2500, L501.5200 #### [facility] [address] [place], [address] Chloride [Moles/Vol] 105 mmol/L Normal 98-107 [facility] Comment on above: Performed By: #### L 500.2500, L501.5200 #### [facility] [address] [place], [address] CO2 [Moles/Vol] 28.0 mmol/L Normal 21.0-32.0 [facility] Comment on above: Performed By: #### L 500.2500, L501.5200 #### [facility] [address] [place], [address] Creatinine [Mass/Vol] 0.72 mg/dL Normal 0.55-1.02 [facility] Comment on above: Result Comment: The validity of the calculated GFR GFRAA in patients over 70 years has not been determined. Clinical correlation is essential. Performed By: #### L 500.2500, L501.5200 #### [facility] [address] [place], [address] EST GFR - AA 107 mL/min Normal >60 [facility] Comment on above: Result Comment: Afri can Bahamian GFR Calc Performed By: #### L 500.2500, L501.5200 #### [facility] [address] [place], [address] GAP 5 Normal 5-15 [facility] Comment on above: Performed By: #### L 500.2500, L501.5200 #### [facility] [address] [place], [address] GFR/1.73 sq M.predicted among non-blacks MDRD (S/P/Bld) [Vol rate/Area] 89 mL/min/{1.73_m2} Normal >60 [facility] Comment on above: Result Comment: Non- GFR Calc Performed By: #### L 500.2500, L501.5200 #### [facility] [address] [place], [address] Glucose [Mass/Vol] 99 mg/dL Normal 74-106 [facility] Comment on above: Performed By: #### L 500.2500, L501.5200 #### [facility] [address] [place], [address] Potassium [Moles/Vol] 3.8 mmol/L Normal 3.5-5.1 [facility] Comment on above: Performed By: #### L 500.2500, L501.5200 #### [facility] [address] [place], [address] Sodium [Moles/Vol] 138 mmol/L Normal 136-145 [facility] Comment on above: Performed By: #### L 500.2500, L501.5200 #### [facility] [address] [place], [address] Urea nitrogen [Mass/Vol] 11 mg/dL Normal 7-18 [facility] Comment on above: Performed By: #### L 500.2500, L501.5200 #### [facility] [address] [place], [address] Blood urea nitrogen (BUN)/cr eatinine ratioOrdered By: Marielle Grissom on 11-11-2024 Urea nitrogen/Creatinine [Mass ratio] 15.3 mg/mg 10-20 [facility] Carbon dioxide measurementOr dered By: Marielle Grissom on 11-11-2024 CO2 [Moles/Vol] 28.0 mmol/L 21.0-32.0 [facility] Chloride measurementOrdered By: Marielle Grissom on 11-11-2024 Chloride [Moles/Vol] 105 mmol/L 98-107 [facility] Estimated glomerular filtrat ion rate (GFR) AmericanOrdered By: Marielle Grissom on 11-11-2024 Estimated GFR (MDRD) Amer 107 mL/min >60 [facility] Comment on above: GFR Calc Glomerular filtration rate ( GFR) estimationOrdered By: Marielle Grissom on 11-11-2024 Estimated GFR (MDRD) Non-Af Amer 89 mL/min >60 [facility] Comment on above: Non- GFR Calc Glucose measurementOrdered B y: Marielle Grissom on 11-11-2024 Glucose [Mass/Vol] 99 mg/dL 74-106 [facility] Magnesiumon 11-11-2024 Magnesium [Mass/Vol] 1.7 mg/dL Normal 1.6-2.6 [facility] Comment on above: Performed By: #### L 500.2500, L501.5200 #### [facility] [address] [place], [address] Magnesium measurementOrdered By: Marielle Grissom on 11-11-2024 Magnesium [Mass/Vol] 1.7 mg/dL 1.6-2.6 [facility] Potassium measurementOrdered By: Marielle Grissom on 11-11-2024 Potassium [Moles/Vol] 3.8 mmol/L 3.5-5.1 [facility] Serum anion gap measurementO rdered By: Marielle Grissom on 11-11-2024 Anion gap [Moles/Vol] 5 mmol/L 5-15 [facility] Serum or plasma calcium kecia urement (mass/volume)Ordered By: Marielle Grissom on 11-11-2024 Calcium [Mass/Vol] 9.2 mg/dL 8.5-10.1 [facility] Serum or plasma creatinine m easurement (mass/volume)Ordered By: Marielle Grissom on 11-11-2024 Creatinine [Mass/Vol] 0.72 mg/dL 0.55-1.02 [facility] Comment on above: The validity of the calculated GFR & GFRAA in patients over 70 years has not been determined. Clinical correlation is essential. Serum or plasma urea nitroge n measurement (mass/volume)Ordered By: Marielle Grissom on 11-11-2024 Urea nitrogen [Mass/Vol] 11 mg/dL 7-18 [facility] Sodium levelOrdered By: Jhoan Grissom on 11-11-2024 Sodium [Moles/Vol] 138 mmol/L 136-145 [facility] Thyroidon 11-01-2024 Thyroid [facility] Imaging Services [address] [place], [place] [address] Thyroid MR#: [id number] Acct: [id number] Name: IRISH VAZQUEZ Rep #: [id number] : 1965 F 59 From: Dimitrios Santos MD PCP: Dr. Alessia Herr MD Status: REG CLI Study: Thyroid Date of Exam: 11/01/24 Exam# [id number] Ordering Dr: Katelyn Galicia PRODUCTION SUPPORT ANALYST N P-C [id number] STUDY: THYROID ULTRASOUND REASON FOR EXAM: Female, 59 years old. Nontoxic multinodular goiter TECHNIQUE: Ultrasound evaluation of the thyroid was performed with real-time and static hodges-scale imaging. COMPARISON: 12/29/2023 FINDINGS: RIGHT LOBE: The right lobe of the thyroid gland measures 5.5 x 1.7 x 1.47 cm. There is a homogeneous echotexture. Nodule 1: No change in the 6 x 5 x 5 mm solid hypoechoic wider than tall ill-defined margin nodule with no echogenic foci (TR 4) in the posterior right lobe consistent with an adenoma. Nodule 2: No change in the 6 x 4 x 5 mm solid hypoechoic wider than tall ill-defined margin nodule with no echogenic foci (TR 4) in the mid right lobe consistent with an adenoma. LEFT LOBE: The left lobe of the thyroid gland measures 4.0 x 1.8 x 1.4 cm. There is a homogeneous echotexture. Nodule 3: No change in the 10 x 10 x 8 mm cystic anechoic wider than tall smoothly marginated nodule with no echogenic foci (TR 1) in the mid left lobe consistent with a colloid cyst. ISTHMUS: The isthmus measures 2 mm thick. . The regional lymph nodes are normal. US/Thyroid IMPRESSION: No change in multinodular thyroid gland. Electronically Signed: Dimitrios Santos MD at 11:03 EST , CC: TONE Galicia; Dr. Alessia Herr MD Granulating Blender: Signed Normal [facility] Cardiology Visit Reporton Cardiology Visit Report [facility]. [address] [place] [address] OFFICE VISIT Date of Service: 09/09/24 MR#: [id number] Acct: [id number] Name: IRISH VAZQUEZ Rep #: [id number] : 1965 Provider: RAZ Rico Age/Sex: 59/F Location: [facility] Status: Signed HPI HPI History of Present Illness Details: Irish Vazquez is a 59 year-old lady with a history of obesity, diabetes mellitus who contracted COVID in Aug 2021. She has some atypical chest pain, event monitor was ordered by PCP. Event monitor she was noted to have an episode of a narrow complex tachycardia as well as a 7 beat run of a wide-complex tachycardia noted at 4 AM. This was asymptomatic. There was another episode of a narrow complex tachycardia which was also 7 beats with a rate of approximately 150 bpm. She did have sinus tachycardia noted for more than 22% of the duration. 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 She was started on Toprol 50 mg. 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 Patient had a 48-hour Holter monitor in October 2023 which demonstrated an average heart rate of 93 bpm, minimum heart rate 66 bpm, maximum heart rate 141 bpm. Total of 72 premature ventricular ectopic beats, a total of 20 premature supraventricular ectopic beats noted. Patient underwent a coronary calcium score in April 2024 at [facility]. Her total score was 9.76. Pt has had some palpitations. When she walks for an extended time she feels that her heart is racing and feels that it takes a bit to settle down. She has not started her metoprolol like we talked about at her last office visit. 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 Is patient in pain?: No Allergies erythromycin base Allergy (Intermediate, Verified 09/09/24 14:26) hives Medications ???Medication ???Instructions ???Recorded ???Confirmed ???Type cholecalciferol (vitamin D3) 125 125 mcg PO DAILY 08/30/21 09/09/24 History mcg (5,000 unit) tablet (Vitamin D3) levothyroxine 25 mcg tablet 25 mcg PO DAILY 01/12/22 09/09/24 History metformin 500 mg tablet,extended 1,500 mg PO QAM 01/12/22 09/09/24 History release 24 hr spironolactone 50 mg tablet 50 mg PO DAILY 01/12/22 09/09/24 History omega-3 fatty acids 1,000 mg 1,000 mg PO DAILY 04/03/24 09/09/24 History capsule metoprolol succinate 25 mg 25 mg PO QHS #30 tabs 09/09/24 09/09/24 Rx tablet,extended release 24 hr omeprazole 40 mg capsule,delayed 40 mg PO QDAY 09/09/24 09/09/24 History release PFSH Medical History (Updated 04/03/24 @ 14:51 by Marielle CRANDALL, PA) Non-ischemic cardiomyopathy Type 2 diabetes mellitus Hypothyroidism Obesity Nonsustained paroxysmal ventricular tachycardia Social History Smoking Status: Never smoker alcohol intake: never ROS Const Const: Negative for fatigue, weakness, fever(s) or headache(s) Eyes Eyes: Negative for blind spots, loss of peripheral vision or transient loss of vision ENT ENT: Negative for headache(s), dizziness, tinnitus, Nosebleed/epistaxis or balance problems Cardio Chest Pain: No Palpitations: Yes Edema: None Muscle aches with walking: None Resp Respiratory: Negative for SOB with activity, SOB at rest, SOB orthopnea SOB lying down or Cough GI GI: Negative nausea, vomiting, heartburn or vomiting blood/hematemesis : Negative for hematuria Musc Musc: Negative for muscle aches/ myalgia, muscle weakness, joint pain or balance problems Neuro Neuro: Negative for dizziness, lightheadedness, near syncope, syncope, orthostatic symptoms, headache(s) or weakness Jose Hematologic/Lymphatic : Negative for easy bleeding Endo Endo: Negative for fatigue Cardiology Exam Const Appearance: cooperative, healthy appearing, comfortable, no acute distress and well developed Orientation: alert, awake and oriented x3 Head Head: normal to inspection Ears: hearing grossly normal bilaterally Nose: external nose normal Face and Sinus: face symmetric Mouth: oral mucosae normal, lip normal and moist mucous membranes Eyes General: appearance normal, both eyes and all related structures Eyelids: eyelids normal Conjunctivae: conjunctivae normal Pupils: PERRL EOM: EOM intact bilaterally Neck Neck: normal visual inspection and trachea midline; Negative no JVD Carotids: Negative bruit Chest Chest inspection: normal inspect (more content not included)... Normal [facility] AST(SGOT)on 06-26-2024 AST [Catalytic activity/Vol] 14 U/L Low 15-37 [facility] Comment on above: Performed By: #### L 501.9520, L500.2500, L506.0400, L501.9985, L501.4100, L500.4100, L501.4405 ####[facility] [address] [place], [place], [id number] Alanine Aminotransferas (SGP T)on 06-26-2024 ALT [Catalytic activity/Vol] 21 U/L Normal 13- [facility] Comment on above: Performed By: #### L 501.9520, L500.2500, L506.0400, L501.9985, L501.4100, L500.4100, L501.4405 ####[facility] [address] [place], [address] Basic Metabolic Profile (BMP )on 06-26-2024 BUN/CRE 18.2 RATIO Normal 10-20 [facility] Comment on above: Performed By: #### L 501.9520, L500.2500, L506.0400, L501.9985, L501.4100, L500.4100, L501.4405 ####[facility] [address] [place], [address] CA,Total 9.2 mg/dL Normal 8.5-10.1 [facility] Comment on above: Performed By: #### L 501.9520, L500.2500, L506.0400, L501.9985, L501.4100, L500.4100, L501.4405 ####[facility] [address] [place], [address] Chloride [Moles/Vol] 104 mmol/L Normal 98-107 [facility] Comment on above: Performed By: #### L 501.9520, L500.2500, L506.0400, L501.9985, L501.4100, L500.4100, L501.4405 ####[facility] [address] [place], [address] CO2 [Moles/Vol] 28.0 mmol/L Normal 21.0-32.0 [facility] Comment on above: Performed By: #### L 501.9520, L500.2500, L506.0400, L501.9985, L501.4100, L500.4100, L501.4405 ####[facility] [address] [place], [address] Creatinine [Mass/Vol] 0.77 mg/dL Normal 0.55-1.02 [facility] Comment on above: Result Comment: The validity of the calculated GFR GFRAA in patients over 70 years has not been determined. Clinical correlation is essential. Performed By: #### L 501.9520, L500.2500, L506.0400, L501.9985, L501.4100, L500.4100, L501.4405 ####[facility] [address] [place], [address] EST GFR - AA 100 mL/min Normal >60 [facility] Comment on above: Result Comment: Afri can Bahamian GFR Calc Performed By: #### L 501.9520, L500.2500, L506.0400, L501.9985, L501.4100, L500.4100, L501.4405 ####[facility] [address] [place], [address] GAP 5 Normal 5-15 [facility] Comment on above: Performed By: #### L 501.9520, L500.2500, L506.0400, L501.9985, L501.4100, L500.4100, L501.4405 ####[facility] [address] [place], [address] GFR/1.73 sq M.predicted among non-blacks MDRD (S/P/Bld) [Vol rate/Area] 82 mL/min/{1.73_m2} Normal >60 [facility] Comment on above: Result Comment: Non- GFR Calc Performed By: #### L 501.9520, L500.2500, L506.0400, L501.9985, L501.4100, L500.4100, L501.4405 ####[facility] [address] [place], [address] Glucose [Mass/Vol] 88 mg/dL Normal 74-106 [facility] Comment on above: Performed By: #### L 501.9520, L500.2500, L506.0400, L501.9985, L501.4100, L500.4100, L501.4405 ####[facility] [address] [place], [address] Potassium [Moles/Vol] 4.3 mmol/L Normal 3.5-5.1 [facility] Comment on above: Performed By: #### L 501.9520, L500.2500, L506.0400, L501.9985, L501.4100, L500.4100, L501.4405 ####[facility] [address] [place], [address] Sodium [Moles/Vol] 137 mmol/L Normal 136-145 [facility] Comment on above: Performed By: #### L 501.9520, L500.2500, L506.0400, L501.9985, L501.4100, L500.4100, L501.4405 ####[facility] [address] [place], [place], [id number] Urea nitrogen [Mass/Vol] 14 mg/dL Normal 7-18 [facility] Comment on above: Performed By: #### L 501.9520, L500.2500, L506.0400, L501.9985, L501.4100, L500.4100, L501.4405 ####[facility] [address] [place], [place], [id number] Hemoglobin A1con 06-26-2024 HbA1c (Bld) [Mass fraction] 5.5 % Normal 3.8-5.6 [facility] Comment on above: Result Comment: Norm al < 5.7 % Prediabetic 5.7 - 6.4 % Diabetic >or= 6.5 % Please note range changes. Performed By: #### L 501.9520, L500.2500, L506.0400, L501.9985, L501.4100, L500.4100, L501.4405 ####[facility] [address] [place], [address] Lipid Profileon 06-26-2024 Cholesterol [Mass/Vol] 172 mg/dL Normal 200 [facility] Comment on above: Result Comment: <200 mg/dL Desirable 200-240 mg/dL Borderline >240 mg/dL High Risk Performed By: #### L 501.9520, L500.2500, L506.0400, L501.9985, L501.4100, L500.4100, L501.4405 ####[facility] [address] [place], [address] Cholesterol in HDL [Mass/Vol] 47 mg/dL Normal [facility] Comment on above: Result Comment: The drugs N-Acetylcysteine and Metamizole may falsely depress this assay. Reference Range HDL <40 mg/dL Low HDL Cholesterol HDL >or= 60 mg/dL High HDL Cholesterol Performed By: #### L 501.9520, L500.2500, L506.0400, L501.9985, L501.4100, L500.4100, L501.4405 ####[facility] [address] [place], [address] Cholesterol in LDL [Mass/Vol] 95 mg/dL Normal 0-130 [facility] Comment on above: Performed By: #### L 501.9520, L500.2500, L506.0400, L501.9985, L501.4100, L500.4100, L501.4405 ####[facility] [address] [place], [address] Cholesterol in VLDL [Mass/Vol] 30 mg/dL Normal 5-40 [facility] Comment on above: Performed By: #### L 501.9520, L500.2500, L506.0400, L501.9985, L501.4100, L500.4100, L501.4405 ####[facility] [address] [place], [address] Triglyceride [Mass/Vol] 150 mg/dL Normal [facility] Comment on above: Result Comment: The drugs N-Acetylcysteine and Metamizole may falsely depress this assay. Serum Triglycerides Reference Interval Normal <150 mg/dL Borderline high 150 - 199 mg/dL High 200 - 499 mg/dL Very High > or = 500 mg/dL Performed By: #### L 501.9520, L500.2500, L506.0400, L501.9985, L501.4100, L500.4100, L501.4405 ####[facility] [address] [place], [address] T4 Free Directon 06-26-2024 T4 FREE DIRECT 0.81 ng/dL Normal 0.76-1.46 [facility] Comment on above: Performed By: #### L 501.9520, L500.2500, L506.0400, L501.9985, L501.4100, L500.4100, L501.4405 ####[facility] [address] [place], [address] Thyroid Stim Hormone (TSH)on 06-26-2024 TSH 2.240 uIU/mL Normal 0.358-3.740 [facility] Comment on above: Performed By: #### L 501.9520, L500.2500, L506.0400, L501.9985, L501.4100, L500.4100, L501.4405 ####[facility] [address] [place], [address] CT CARDIAC SCORING WO IV CON TRASTon 05-08-2024 CT CARDIAC SCORING WO IV CONTRAST Interpreted By: Lavinia Yeung, STUDY: CT CARDIAC SCORING WO IV CONTRAST; 05/08/2024 5:23 pm INDICATION: Signs/Symptoms:CT CARDIAC SCORE. COMPARISON: None. ACCESSION NUMBER(S): [id number] ORDERING CLINICIAN: MARIELLE GRISSOM TECHNIQUE: Using prospective ECG gating, CT scan of the coronary arteries was performed without intravenous contrast. Coronary calcium scoring was performed according to the method of Agatston. FINDINGS: The score and distribution of calcium in the coronary arteries is as follows: LM 0 LAD 8.57 LCx 0 RCA 1.19 Total 9.76 The visualized mid/lower ascending thoracic aorta measures 3.5 cm in diameter. The heart is normal in size. No pericardial effusion is present. No gross evidence of mediastinal or hilar lymphadenopathy or masses is identified. The visualized segments of the lungs are normally expanded. The visualized subdiaphragmatic structures appear intact. IMPRESSION: 1. Coronary artery calcium score of 9.76*. *Coronary artery calcium scoring may be helpful in predicting the risk for future coronary heart disease events. According to the [place] [employer] Clinical Expert Consensus Task Force, such testing provides important prognostic information in patients with more than one coronary heart disease risk factor. The coronary artery calcium score correlates with the annual risk of a non-fatal myocardial infarction or coronary heart disease . Coronary artery score Annual Risk 0-99 0.4% 100-399 1.3% >400 2.4% These three breakpoints correspond to lower, intermediate and high risk states for future coronary events. Such information should be used, along with appropriate clinical judgment, to make decisions regarding the intensity of risk factor management strategies to treat blood lipids and to modify other non-lipid coronary risk factors. Reference: Beaver P et al. Circulation. 2007; 115:402-426 MACRO: None Signed by: Lavinia Yeung 05/10/2024 4:32 PM Dictation workstation: [id number] [facility] Basophil percentageon 2023 Chloride [Moles/Vol] 108 mmol/L 98-107 [facility] Cholesterol [Mass/Vol] 179 mg/dL <200 [facility] Comment on above: <200 mg/dL Desirable 200-240 mg/dL Borderline >240 mg/dL High Risk Glucose [Mass/Vol] 95 mg/dL 74-106 [facility] Potassium [Moles/Vol] 4.4 mmol/L 3.5-5.1 [facility] Sodium [Moles/Vol] 140 mmol/L 136-145 [facility] Triglyceride [Mass/Vol] 170 mg/dL <199 [facility] Comment on above: The drugs N-Acetylcy steine and Metamizole may falsely depress this assay.Serum Triglycerides Reference Interval Normal <150 mg/dL Borderline high 150 - 199 mg/dL High 200 - 499 mg/dL Very High > or = 500 mg/dL Laboratory - Chemistry and C hemistry - challengeon 12-26-2023 ALT [Catalytic activity/Vol] 16 U/L 13-56 [facility] Cholesterol in HDL [Mass/Vol] 41 mg/dL >40 [facility] Comment on above: The drugs N-Acetylcy steine and Metamizole may falsely depress this assay. Reference Range HDL <40 mg/dL Low HDL Cholesterol HDL >or= 60 mg/dL High HDL Cholesterol Cholesterol in LDL [Mass/Vol] 104 mg/dL 0-130 [facility] CO2 [Moles/Vol] 27.0 mmol/L 21.0-32.0 [facility] Urea nitrogen/Creatinine [Mass ratio] 19.4 mg/mg 10-20 [facility] No Panel Informationon 12-26 Estimated GFR (MDRD) Amer 99 mL/min >60 [facility] Comment on above: GFR Calc Estimated GFR (MDRD) Non-Af Amer 82 mL/min >60 [facility] Comment on above: Non- GFR Calc VLDL Cholesterol 34 mg/dL 5-40 [facility] Serum or plasma calcium kecia urement (mass/volume)on 12-26-2023 Calcium [Mass/Vol] 9.2 mg/dL 8.5-10.1 [facility] Serum or plasma creatinine m easurement (mass/volume)on 12-26-2023 Creatinine [Mass/Vol] 0.77 mg/dL 0.55-1.02 [facility] Comment on above: The validity of the calculated GFR & GFRAA in patients over 70 years has not been determined. Clinical correlation is essential. Serum or plasma thyroid stim ulating hormone (TSH) measurement (units/volume)on 12-26-2023 TSH Qn 2.57 uIU/mL 0.358-3.74 [facility] Serum or plasma urea nitroge n measurement (mass/volume)on 12-26-2023 Urea nitrogen [Mass/Vol] 15 mg/dL 7-18 [facility] Thin prep Papanicolaou smear with manual screeningon 12-26-2023 Thin prep Papanicolaou smear with manual screening 14 U/L 15-37 [facility] Thin prep Papanicolaou smear with manual screening 5 5-15 [facility] Thin prep Papanicolaou smear with manual screening 0.82 ng/dL 0.76-1.46 [facility] Whole blood hemoglobin A1c/t otal hemoglobin ratio (mass fraction)on 12-26-2023 HbA1c (Bld) [Mass fraction] 5.6 % 3.8-5.6 [facility] Comment on above: Normal < 5.7 % Predi abetic 5.7 - 6.4 % Diabetic >or= 6.5 % Please note range changes. Basophil percentageOrdered B y: Marielle Grissom on 10-02-2023 Chloride [Moles/Vol] 103 mmol/L 98-107 [facility] Glucose [Mass/Vol] 92 mg/dL 74-106 [facility] Potassium [Moles/Vol] 4.3 mmol/L 3.5-5.1 [facility] Sodium [Moles/Vol] 138 mmol/L 136-145 [facility] Laboratory - Chemistry and C hemistry - challengeOrdered By: Marielle Grissom on 10-02-2023 CO2 [Moles/Vol] 30.0 mmol/L 21.0-32.0 [facility] Magnesium [Mass/Vol] 2.0 mg/dL 1.6-2.6 [facility] Urea nitrogen/Creatinine [Mass ratio] 22.7 mg/mg 09-01 [facility] No Panel InformationOrdered By: Marielle Grissom on 10-02-2023 Estimated GFR (MDRD) Amer 110 mL/min >60 [facility] Comment on above: GFR Calc Estimated GFR (MDRD) Non-Af Amer 91 mL/min >60 [facility] Comment on above: Non- GFR Calc Thyroid Stimulating Hormone (TSH) 1.57 uIU/mL 0.358-3.74 [facility] Serum or plasma calcium kecia urement (mass/volume)Ordered By: Marielle Grissom on 10-02-2023 Calcium [Mass/Vol] 9.2 mg/dL 8.5-10.1 [facility] Serum or plasma creatinine m easurement (mass/volume)Ordered By: Marielle Grissom on 10-02-2023 Creatinine [Mass/Vol] 0.70 mg/dL 0.55-1.02 [facility] Comment on above: The validity of the calculated GFR & GFRAA in patients over 70 years has not been determined. Clinical correlation is essential. Serum or plasma urea nitroge n measurement (mass/volume)Ordered By: Marielle Grissom on 10-02-2023 Urea nitrogen [Mass/Vol] 16 mg/dL 7-18 [facility] Thin prep Papanicolaou smear with manual screeningOrdered By: Marielle Grissom on 10-02-2023 Thin prep Papanicolaou smear with manual screening 5 5-15 [facility] Basophil percentageOrdered B y: Katelyn Galicia on 06-28-2023 Chloride [Moles/Vol] 105 mmol/L 98-107 [facility] Cholesterol [Mass/Vol] 179 mg/dL <200 [facility] Comment on above: <200 mg/dL Desirable 200-240 mg/dL Borderline >240 mg/dL High Risk Glucose [Mass/Vol] 82 mg/dL 74-106 [facility] Potassium [Moles/Vol] 3.9 mmol/L 3.5-5.1 [facility] Sodium [Moles/Vol] 138 mmol/L 136-145 [facility] Triglyceride [Mass/Vol] 193 mg/dL <199 [facility] Comment on above: The drugs N-Acetylcy steine and Metamizole may falsely depress this assay.Serum Triglycerides Reference Interval Normal <150 mg/dL Borderline high 150 - 199 mg/dL High 200 - 499 mg/dL Very High > or = 500 mg/dL Laboratory - Chemistry and C hemistry - challengeOrdered By: Katelyn Galicia on 06-28-2023 ALT [Catalytic activity/Vol] 19 U/L 13-56 [facility] CO2 [Moles/Vol] 30.0 mmol/L 21.0-32.0 [facility] Free T4 [Mass/Vol] 0.81 ng/dL 0.76-1.46 [facility] Urea nitrogen/Creatinine [Mass ratio] 24.0 mg/mg 10-20 [facility] No Panel InformationOrdered By: Katelyn Galicia on 06-28-2023 Estimated GFR (MDRD) Amer 110 mL/min >60 [facility] Comment on above: GFR Calc Estimated GFR (MDRD) Non-Af Amer 91 mL/min >60 [facility] Comment on above: Non- GFR Calc Thyroid Stimulating Hormone (TSH) 2.24 uIU/mL 0.358-3.74 [facility] Serum or plasma calcium kecia urement (mass/volume)Ordered By: Katelyn Galicia on 06-28-2023 Calcium [Mass/Vol] 8.7 mg/dL 8.5-10.1 [facility] Serum or plasma cholesterol in HDL measurement (mass/volume)Ordered By: Katelyn Galicia on 06-28-2023 Cholesterol in HDL [Mass/Vol] 42 mg/dL >40 [facility] Comment on above: The drugs N-Acetylcy steine and Metamizole may falsely depress this assay. Reference Range HDL <40 mg/dL Low HDL Cholesterol HDL >or= 60 mg/dL High HDL Cholesterol Serum or plasma cholesterol in VLDL measurement (mass/volume)Ordered By: Katelyn Galicia on 06-28-2023 Cholesterol in VLDL [Mass/Vol] 39 mg/dL 5-40 [facility] Serum or plasma creatinine m easurement (mass/volume)Ordered By: Katelyn Galicia on 06-28-2023 Creatinine [Mass/Vol] 0.71 mg/dL 0.55-1.02 [facility] Comment on above: The validity of the calculated GFR & GFRAA in patients over 70 years has not been determined. Clinical correlation is essential. Serum or plasma low density lipoprotein (LDL) cholesterol measurement (mass/volume)Ordered By: Katelyn Galicia on 06-28-2023 Cholesterol in LDL [Mass/Vol] 98 mg/dL 0-130 [facility] Serum or plasma urea nitroge n measurement (mass/volume)Ordered By: Katelyn Galicia on 06-28-2023 Urea nitrogen [Mass/Vol] 17 mg/dL 7-18 [facility] Thin prep Papanicolaou smear with manual screeningOrdered By: Katelyn Galicia on 06-28-2023 Thin prep Papanicolaou smear with manual screening 12 U/L 15-37 [facility] Thin prep Papanicolaou smear with manual screening 3 5-15 [facility] Whole blood hemoglobin A1c/t otal hemoglobin ratio (mass fraction)Ordered By: Katelyn Galicia on 06-28-2023 HbA1c (Bld) [Mass fraction] 5.7 % 3.8-5.6 [facility] Comment on above: Normal < 5.7 % Predi abetic 5.7 - 6.4 % Diabetic >or= 6.5 % Please note range changes. Basophil percentageon 2021 Chloride [Moles/Vol] 104 mmol/L 98-[address] [facility] Work Phone: Cholesterol [Mass/Vol] 178 mg/dL <200 [facility] Work Phone: Comment on above: <200 mg/dL Desirable 200-240 mg/dL Borderline >240 mg/dL High Risk Glucose [Mass/Vol] 84 mg/dL 74-106 [facility] Work Phone: Potassium [Moles/Vol] 4.0 mmol/L 3.5-5.1 [facility]: Sodium [Moles/Vol] 138 mmol/L 136-145 [facility] Work Phone: Triglyceride [Mass/Vol] 144 mg/dL <199 [facility] Work Phone: Comment on above: The drugs N-Acetylcy steine and Metamizole may falsely depress this assay.Serum Triglycerides Reference Interval Normal <150 mg/dL Borderline high 150 - 199 mg/dL High 200 - 499 mg/dL Very High > or = 500 mg/dL Laboratory - Chemistry and C hemistry - challengeon 10-12-2022 ALT [Catalytic activity/Vol] 23 U/L 13-56 [facility] Work Phone: CO2 [Moles/Vol] 27.0 mmol/L 21.0-32.0 [facility] Work Phone: Free T4 [Mass/Vol] 0.77 ng/dL 0.76-1.46 [facility] Work Phone: Urea nitrogen/Creatinine [Mass ratio] 24.7 mg/mg 10-20 [facility] Work Phone: No Panel Informationon 10-12 Estimated GFR (MDRD) Amer 100 mL/min >60 [facility] Work Phone: Comment on above: GFR Calc Estimated GFR (MDRD) Non-Af Amer 83 mL/min >60 [facility] Work Phone: Comment on above: Non- GFR Calc Thyroid Stimulating Hormone (TSH) 2.58 uIU/mL 0.358-3.74 [facility] Work Phone: Serum or plasma calcium kecia urement (mass/volume)on 10-12-2022 Calcium [Mass/Vol] 8.8 mg/dL 8.5-10.1 [facility] Work Phone: Serum or plasma cholesterol in HDL measurement (mass/volume)on 10-12-2022 Cholesterol in HDL [Mass/Vol] 43 mg/dL >40 [facility] Work Phone: Comment on above: The drugs N-Acetylcy steine and Metamizole may falsely depress this assay. Reference Range HDL <40 mg/dL Low HDL Cholesterol HDL >or= 60 mg/dL High HDL Cholesterol Serum or plasma cholesterol in VLDL measurement (mass/volume)on 10-12-2022 Cholesterol in VLDL [Mass/Vol] 29 mg/dL 5-40 [facility] Work Phone: Serum or plasma creatinine m easurement (mass/volume)on 10-12-2022 Creatinine [Mass/Vol] 0.77 mg/dL 0.55-1.02 [facility] Work Phone: Comment on above: The validity of the calculated GFR & GFRAA in patients over 70 years has not been determined. Clinical correlation is essential. Serum or plasma low density lipoprotein (LDL) cholesterol measurement (mass/volume)on 10-12-2022 Cholesterol in LDL [Mass/Vol] 106 mg/dL 0-130 [facility] Work Phone: Serum or plasma urea nitroge n measurement (mass/volume)on 10-12-2022 Urea nitrogen [Mass/Vol] 19 mg/dL 7-18 [facility] Work Phone: Thin prep Papanicolaou smear with manual screeningon 10-12-2022 Thin prep Papanicolaou smear with manual screening 10 U/L 15-37 [facility] Work Phone: Thin prep Papanicolaou smear with manual screening 7 5-15 [facility] Work Phone: Whole blood hemoglobin A1c/t otal hemoglobin ratio (mass fraction)on 10-12-2022 HbA1c (Bld) [Mass fraction] 5.9 % 3.8-5.6 [facility] Work Phone: Comment on above: Normal < 5.7 % Predi abetic 5.7 - 6.4 % Diabetic >or= 6.5 % Please note range changes. Laboratory - Microbiology an d Antimicrobial susceptibilityon 06-07-2022 SARS-CoV-2 (COVID-19) RNA PARIS+probe Ql (Unsp spec) Not detected Not Detect [facility] Work Phone: Comment on above: Normal Reference Ran ge: Not DetectedMethod:(RT-PCR) real-time reverse transcriptase PCRLuminex Nginx Instrument*The Food and Drug Administration (FDA) has issued an Emergency Use Authorization (EAU) for the GONZALO SARS-CoV-2 Assay for the rapid detection of the virus that causes COVID-19. This test has been validated, but the FDAs independent review of this validation is pending.*Negative results do not preclude infection and should not be used as the sole basis for treatment or patient management. Optimum specimen types and timing for peak viral levels during infections caused by SARS-CoV-2 have not been determined. Collection of multiple specimens from the same patient may be necessary to detect the virus. The possibility of a false negative result should be considered if the patient has clinical presentation or has had recent exposure. Basophil percentageon 2021 Chloride [Moles/Vol] 104 mmol/L 98-[address] [facility] [facility] Work Phone: Cholesterol [Mass/Vol] 192 mg/dL <200 [facility] Work Phone: Comment on above: <200 mg/dL Desirable 200-240 mg/dL Borderline >240 mg/dL High Risk Glucose [Mass/Vol] 97 mg/dL 74-106 [facility] Work Phone: Potassium [Moles/Vol] 4.2 mmol/L 3.5-5.1 [facility] Work Phone: Sodium [Moles/Vol] 136 mmol/L 136-145 [facility] Work Phone: Triglyceride [Mass/Vol] 142 mg/dL <199 [facility] Work Phone: Comment on above: The drugs N-Acetylcy steine and Metamizole may falsely depress this assay.Serum Triglycerides Reference Interval Normal <150 mg/dL Borderline high 150 - 199 mg/dL High 200 - 499 mg/dL Very High > or = 500 mg/dL Laboratory - Chemistry and C hemistry - challengeon 04-12-2022 ALT [Catalytic activity/Vol] 29 U/L 13-56 [facility] Work Phone: CO2 [Moles/Vol] 26.0 mmol/L 21.0-32.0 [facility] Work Phone: Free T4 [Mass/Vol] 0.96 ng/dL 0.76-1.46 [facility] Work Phone: Urea nitrogen/Creatinine [Mass ratio] 21.9 mg/mg 10-20 [facility] Work Phone: No Panel Informationon 04-12 Estimated GFR (MDRD) Amer 99 mL/min >60 [facility] Work Phone: Comment on above: GFR Calc Estimated GFR (MDRD) Non-Af Amer 82 mL/min >60 [facility] Work Phone: Comment on above: Non- GFR Calc Thyroid Stimulating Hormone (TSH) 1.93 uIU/mL 0.358-3.74 [facility] Work Phone: Serum or plasma calcium kecia urement (mass/volume)on 04-12-2022 Calcium [Mass/Vol] 8.8 mg/dL 8.5-10.1 [facility] Work Phone: Serum or plasma cholesterol in HDL measurement (mass/volume)on 04-12-2022 Cholesterol in HDL [Mass/Vol] 44 mg/dL >40 [facility] Work Phone: Comment on above: The drugs N-Acetylcy steine and Metamizole may falsely depress this assay. Reference Range HDL <40 mg/dL Low HDL Cholesterol HDL >or= 60 mg/dL High HDL Cholesterol Serum or plasma cholesterol in VLDL measurement (mass/volume)on 04-12-2022 Cholesterol in VLDL [Mass/Vol] 28 mg/dL 5-40 [facility] Work Phone: Serum or plasma creatinine m easurement (mass/volume)on 04-12-2022 Creatinine [Mass/Vol] 0.78 mg/dL 0.55-1.02 [facility] Work Phone: Comment on above: The validity of the calculated GFR & GFRAA in patients over 70 years has not been determined. Clinical correlation is essential. Serum or plasma low density lipoprotein (LDL) cholesterol measurement (mass/volume)on 04-12-2022 Cholesterol in LDL [Mass/Vol] 120 mg/dL 0-130 [facility] Work Phone: Serum or plasma urea nitroge n measurement (mass/volume)on 04-12-2022 Urea nitrogen [Mass/Vol] 17 mg/dL 7-18 [facility] Work Phone: Thin prep Papanicolaou smear with manual screeningon 04-12-2022 Thin prep Papanicolaou smear with manual screening 18 U/L 15-37 [facility] Work Phone: Thin prep Papanicolaou smear with manual screening 6 5-15 [facility] Work Phone: Whole blood hemoglobin A1c/t otal hemoglobin ratio (mass fraction)on 04-12-2022 HbA1c (Bld) [Mass fraction] 5.5 % 3.8-5.6 [facility] Work Phone: Comment on above: Normal < 5.7 % Predi abetic 5.7 - 6.4 % Diabetic >or= 6.5 % Please note range changes. Absolute lymphocyte counton 03-29-2022 Lymphocytes Auto (Unsp spec) [#/Vol] 2.86 10*3/uL 0.83-4.51 [facility] Work Phone: Basophil percentageon 2021 Basophils/100 WBC (Bld) 0.9 % 0-1 [facility] Work Phone: Chloride [Moles/Vol] 104 mmol/L 98-107 [facility] Work Phone: Eosinophils/100 WBC (Bld) 1.5 % 0-5 [facility] Work Phone: Glucose [Mass/Vol] 88 mg/dL 74-106 [facility] Work Phone: [phone] Neutrophils (Bld) [#/Vol] 5.0 10*3/uL 2.0-7.7 [facility] Work Phone: [phone] Neutrophils/100 WBC (Bld) 56.5 % 47-70 [facility] Work Phone: [phone] Potassium [Moles/Vol] 3.9 mmol/L 3.5-5.1 [facility] Work Phone: [phone] Sodium [Moles/Vol] 137 mmol/L 136-145 [facility] Work Phone: [phone] WBC (Bld) [#/Vol] 8.8 10*3/uL 4.4-11.0 [facility] Work Phone: Blood erythrocytes count (nu mber/volume)on 03-29-2022 RBC (Bld) [#/Vol] 4.23 10*6/uL 4.2-5.4 [facility] Work Phone: [phone] Blood hemoglobin measurement (mass/volume)on 03-29-2022 Hemoglobin (Bld) [Mass/Vol] 11.6 g/dL 12.0-15.0 [facility] Work Phone: [phone] Blood lymphocytes/100 leukoc yteson 03-29-2022 Lymphocytes/100 WBC (Bld) 32.6 % 19-41 [facility] Work Phone: Blood monocytes/100 leukocyt eson 03-29-2022 Monocytes/100 WBC (Bld) 8.2 % 0-10 [facility] Work Phone: Blood platelet mean volumeon 03-29-2022 Platelet mean volume (Bld) [Entitic vol] 9.9 fL 6.2-12.0 [facility] Work Phone: Determination of erythrocyte mean corpuscular volume (MCV)on 03-29-2022 MCV (RBC) [Entitic vol] 86.1 fL 81-99 [facility] Work Phone: Hematocrit Auto (Bld) [Volum e fraction]on 03-29-2022 Hematocrit (Bld) [Volume fraction] 36.4 % 37-47 [facility] Work Phone: INR in Blood by Coagulation assayon 03-29-2022 INR Coag (Bld) [Relative time] 1.0 {INR} [facility] Work Phone: Laboratory - Chemistry and C hemistry - challengeon 03-29-2022 CO2 [Moles/Vol] 28.0 mmol/L 21.0-32.0 [facility] Work Phone: Urea nitrogen/Creatinine [Mass ratio] 22.8 mg/mg 10-20 [facility] Work Phone: Laboratory - Coagulationon 0 03-29-2022 PT Coag (PPP) [Time] 13.0 s 11.7-14.9 [facility] Work Phone: Laboratory - Hematology and Cell countson 03-29-2022 Erythrocyte distribution width (RBC) [Entitic vol] 46.8 fL 35.1-43.9 [facility] Work Phone: Erythrocyte distribution width (RBC) [Ratio] 14.9 % 11.6-14.6 [facility] Work Phone: Immature granulocytes/100 WBC (Bld) 0.300 % 0.0-0.9 [facility] Work Phone: Comment on above: IG% - Immature Granu locytes (promyelocytes, myelocytes and metamyelocytes) > 1% indicates that a LEFT SHIFT is Present. MCH (RBC) [Entitic mass] 27.4 pg 27.0-32.0 [facility] Work Phone: Nucleated RBC/100 WBC (Bld) [Ratio] 0 % 0-5 [facility] Work Phone: MCHC Auto (RBC) [Mass/Vol]on 03-29-2022 MCHC (RBC) [Mass/Vol] 31.9 g/dL 32-36 [facility] Work Phone: No Panel Informationon 03-29 Estimated GFR (MDRD) Amer 104 mL/min >60 [facility] Work Phone: Comment on above: GFR Calc Estimated GFR (MDRD) Non-Af Amer 86 mL/min >60 [facility] Work Phone: Comment on above: Non- GFR Calc Platelets bldon 03-29-2022 Platelets (Bld) [#/Vol] 257 10*3/uL 150-450 [facility] Work Phone: Serum or plasma calcium kecia urement (mass/volume)on 03-29-2022 Calcium [Mass/Vol] 8.8 mg/dL 8.5-10.1 [facility] Work Phone: Serum or plasma creatinine m easurement (mass/volume)on 03-29-2022 Creatinine [Mass/Vol] 0.74 mg/dL 0.55-1.02 [facility] Work Phone: Comment on above: The validity of the calculated GFR & GFRAA in patients over 70 years has not been determined. Clinical correlation is essential. Serum or plasma urea nitroge n measurement (mass/volume)on 03-29-2022 Urea nitrogen [Mass/Vol] 17 mg/dL 7-18 [facility] Work Phone: Thin prep Papanicolaou smear with manual screeningon 03-29-2022 Thin prep Papanicolaou smear with manual screening 5 5-15 [facility] Work Phone: Cervical or vagninal specime n microscopic examination by cytology stain (reported ason 12-21-2021 Cytology report Cyto stain Doc (Cvx/Vag) Comment [facility] Work Phone: Comment on above: The Pap smear is a s creening test designed to aid in thedetection of premalignant and malignant conditions of theuterine cervix. It is not a diagnostic procedure andshould not be used as the sole means of detecting cervicalcancer. Both false-positive and false-negative reports dooccur. Detection in cervical specim en of any of human papilloma virus (HPV) 16, 18, 31, 33,on 12-21-2021 HPV 16+18+31+33+35+39+45+51+ 52+56+58+59+66+68 DNA Probe+sig amp Ql (Cvx) Negative Negative [facility] Work Phone: Comment on above: This nucleic acid am plification test detects fourteen high-risk HPV types (16,18,31,33,35,39,45,51,52,56,58,59,66,68)without differentiation.Performed at: - [facility] [id number] Director: Trina Apple MD, Phone: [phone] at: = - [facility] [address] [id number] Director: Trina Apple MD, Phone: [phone] Laboratory - Cytologyon Director Product Cyto stain Nom (Cvx/Vag) [ID] Comment [facility] Work Phone: Comment on above: Shanti Montiel, Communication Arts Lecturer (ASCP) Laboratory - Miscellaneous t estson 12-21-2021 Service comment (Unsp spec) [Interp] Comment [facility] Work Phone: Comment on above: This liquid based Th inPrep(R) pap test was screened withthe use of an image guided system. Service comment (Unsp spec) [Interp] . [facility] Work Phone: No Panel Informationon 12-21 Pathology report final diagnosis Narrative Comment [facility] Work Phone: Comment on above: NEGATIVE FOR INTRAEP ITHELIAL LESION OR MALIGNANCY. Absolute lymphocyte counton 11-30-2021 Lymphocytes Auto (Unsp spec) [#/Vol] 3.67 10*3/uL 0.83-4.51 [facility] Work Phone: Basophil percentageon 2021 Basophils/100 WBC (Bld) 0.8 % 0-1 [facility] Work Phone: Chloride [Moles/Vol] 102 mmol/L 98-107 [facility] Work Phone: Eosinophils/100 WBC (Bld) 2.5 % 0-5 [facility] Work Phone: Glucose [Mass/Vol] 91 mg/dL 74-106 [facility] Work Phone: [phone] Neutrophils (Bld) [#/Vol] 6.0 10*3/uL 2.0-7.7 [facility] Work Phone: Neutrophils/100 WBC (Bld) 54.3 % 47-70 [facility] Work Phone: [phone] Potassium [Moles/Vol] 4.2 mmol/L 3.5-5.1 [facility] Work Phone: [phone] Sodium [Moles/Vol] 137 mmol/L 136-145 [facility] Work Phone: [phone] WBC (Bld) [#/Vol] 11.0 10*3/uL 4.4-11.0 [facility] Work Phone: [phone] Blood erythrocytes count (nu mber/volume)on 11-30-2021 RBC (Bld) [#/Vol] 4.39 10*6/uL 4.2-5.4 [facility] Work Phone: Blood hemoglobin measurement (mass/volume)on 11-30-2021 Hemoglobin (Bld) [Mass/Vol] 12.1 g/dL 12.0-15.0 [facility] Work Phone: Blood lymphocytes/100 leukoc yteson 11-30-2021 Lymphocytes/100 WBC (Bld) 33.4 % 19-41 [facility] Work Phone: Blood monocytes/100 leukocyt eson 11-30-2021 Monocytes/100 WBC (Bld) 8.6 % 0-10 [facility] Work Phone: Blood platelet mean volumeon 11-30-2021 Platelet mean volume (Bld) [Entitic vol] 9.4 fL 6.2-12.0 [facility] Work Phone: Determination of erythrocyte mean corpuscular volume (MCV)on 11-30-2021 MCV (RBC) [Entitic vol] 85.0 fL 81-99 [facility] Work Phone: Hematocrit Auto (Bld) [Volum e fraction]on 11-30-2021 Hematocrit (Bld) [Volume fraction] 37.3 % 37-47 [facility] Work Phone: Laboratory - Chemistry and C hemistry - challengeon 11-30-2021 CO2 [Moles/Vol] 29.0 mmol/L 21.0-32.0 [facility] Work Phone: Urea nitrogen/Creatinine [Mass ratio] 23.9 mg/mg 10-20 [facility] Work Phone: Laboratory - Hematology and Cell countson 11-30-2021 Erythrocyte distribution width (RBC) [Entitic vol] 47.5 fL 35.1-43.9 [facility] Work Phone: Erythrocyte distribution width (RBC) [Ratio] 15.1 % 11.6-14.6 [facility] Work Phone: Immature granulocytes/100 WBC (Bld) 0.400 % 0.0-0.9 [facility] Work Phone: Comment on above: IG% - Immature Granu locytes (promyelocytes, myelocytes and metamyelocytes) > 1% indicates that a LEFT SHIFT is Present. MCH (RBC) [Entitic mass] 27.6 pg 27.0-32.0 [facility] Work Phone: Nucleated RBC/100 WBC (Bld) [Ratio] 0 % 0-5 [facility] Work Phone: MCHC Auto (RBC) [Mass/Vol]on 11-30-2021 MCHC (RBC) [Mass/Vol] 32.4 g/dL 32-36 [facility] Work Phone: No Panel Informationon 11-30 Estimated GFR (MDRD) Amer 118 mL/min >60 [facility] Work Phone: Comment on above: GFR Calc Estimated GFR (MDRD) Non-Af Amer 97 mL/min >60 [facility] Work Phone: Comment on above: Non- GFR Calc Thyroid Stimulating Hormone (TSH) 2.22 uIU/mL 0.358-3.74 [facility] Work Phone: Platelets bldon 11-30-2021 Platelets (Bld) [#/Vol] 241 10*3/uL 150-450 [facility] Work Phone: Serum or plasma calcium kecia urement (mass/volume)on 11-30-2021 Calcium [Mass/Vol] 8.9 mg/dL 8.5-10.1 [facility] Work Phone: Serum or plasma creatinine m easurement (mass/volume)on 11-30-2021 Creatinine [Mass/Vol] 0.67 mg/dL 0.55-1.02 [facility] Work Phone: Comment on above: The validity of the calculated GFR & GFRAA in patients over 70 years has not been determined. Clinical correlation is essential. Serum or plasma urea nitroge n measurement (mass/volume)on 11-30-2021 Urea nitrogen [Mass/Vol] 16 mg/dL 05-30 [facility] Work Phone: Thin prep Papanicolaou smear with manual screeningon 11-30-2021 Thin prep Papanicolaou smear with manual screening 6 5-15 [facility] Work Phone: Vital Signs Date Time Vital Sign Value Performing Clinician Faci lity 06-04-2025 08:26-0400 Body height 162.[address] Alessia Herr MD Work Phone: [facility] 06-04-2025 08:21-0400 Body mass index (BMI) [Ratio] 39.9 kg/m2 Dr. Alessia Herr MD Work Phone: [facility] 06-04-2025 08:21-0400 Body weight 105.[address] Alessia Herr MD Work Phone: [facility] 06-04-2025 08:21-0400 Diastolic blood pressure 71 mm[Hg] Dr. Alessia Herr MD Work Phone: [facility] 06-04-2025 08:21-0400 Systolic blood pressure 109 mm[Hg] Dr. Alessia Herr MD Work Phone: [facility] 02-26-2025 14:49-0400 Body mass index (BMI) [Ratio] 37.8 kg/m2 Dr. Alessia Herr MD Work Phone: [facility] 02-26-2025 14:49-0400 Body weight 99.[address] Alessia Herr MD Work Phone: [facility] 02-26-2025 14:49-0400 Diastolic blood pressure 67 mm[Hg] Dr. Alessia Herr MD Work Phone: [facility] 02-26-2025 14:49-0400 Heart rate 77 /min Dr. Alessia Herr MD Work Phone: [facility] 02-26-2025 14:49-0400 Respiratory rate 16 /min Dr. Alessia Herr MD Work Phone: [facility] 02-26-2025 14:49-0400 Systolic blood pressure 116 mm[Hg] Dr. Alessia Herr MD Work Phone: [facility] 10-02-2023 13:58-0500 Body height 162.[address] Kin martínez Work Phone: [facility] 10-02-2023 13:58-0500 Body mass index (BMI) [Ratio] 38.2 kg/m2 Dr. Kin Herr Work Phone: [facility] 10-02-2023 13:58-0500 Body weight 101.[address] Kin martínez Work Phone: [facility] 10-02-2023 13:58-0500 Diastolic blood pressure 69 mm[Hg] Dr. Kin Herr Work Phone: [facility] 10-02-2023 13:58-0500 Heart rate 81 /min Dr. Kin martínez Work Phone: [facility] 10-02-2023 13:58-0500 Respiratory rate 18 /min Dr. Kin martínez Work Phone: [facility] 10-02-2023 13:58-0500 SaO2% (BldA) [Mass fraction] 94 % Dr. Kin Herr Work Phone: [facility] 10-02-2023 13:58-0500 Systolic blood pressure 100 mm[Hg] Dr. Kin Herr Work Phone: [facility] 10-04-2022 13:05-0500 Body height 162.[address] Kin martínez Work Phone: [facility] Work Phone: 10-04-2022 13:05-0500 Body mass index (BMI) [Ratio] 37.4 kg/m2 Dr. Kin Herr Work Phone: [facility] Work Phone: 10-04-2022 13:05-0500 Body weight 98.[address] Kin martínez Work Phone: [facility] Work Phone: 10-04-2022 13:05-0500 Diastolic blood pressure 82 mm[Hg] Dr. Kin Herr Work Phone: [facility] Work Phone: 10-04-2022 13:05-0500 Heart rate 89 /min Dr. Kin martínez Work Phone: [facility] Work Phone: 10-04-2022 13:05-0500 Respiratory rate 18 /min Dr. Kin mratínez Work Phone: [facility] Work Phone: 10-04-2022 13:05-0500 SaO2% (BldA) [Mass fraction] 97 % Dr. Kin Herr Work Phone: [facility] Work Phone: 10-04-2022 13:05-0500 Systolic blood pressure 119 mm[Hg] Dr. Kin Herr Work Phone: [facility] Work Phone: 05-25-2022 11:34-0400 Body height 162.[address] Kin martínez Work Phone: [facility] Work Phone: 05-25-2022 11:34-0400 Body mass index (BMI) [Ratio] 37.9 kg/m2 Dr. Kin Herr Work Phone: [facility] Work Phone: 05-25-2022 11:34-0400 Body weight 100.[address] Kin martínez Work Phone: [facility] Work Phone: 05-25-2022 11:34-0400 Diastolic blood pressure 80 mm[Hg] Dr. Kin Herr Work Phone: [facility] Work Phone: 05-25-2022 11:34-0400 Heart rate 72 /min Dr. Kin martínez Work Phone: [facility] Work Phone: 05-25-2022 11:34-0400 Systolic blood pressure 120 mm[Hg] Dr. Kin Herr Work Phone: [facility] Work Phone: 04-07-2022 09:41-0400 Body height 162.[address] Kin martínez Work Phone: [facility] Work Phone: 04-07-2022 09:41-0400 Body weight 99.[address] Kin martínez Work Phone: [facility] Work Phone: 04-06-2022 07:57-0400 Body mass index (BMI) [Ratio] 37.8 kg/m2 Dr. Kin Herr Work Phone: [facility] Work Phone: 03-02-2022 14:58-0400 Body mass index (BMI) [Ratio] 37.9 kg/m2 Dr. Kin Herr Work Phone: [facility] Work Phone: 03-02-2022 14:58-0400 Body weight 100.[address] Kni martínez Work Phone: [facility] Work Phone: 03-02-2022 14:58-0400 Diastolic blood pressure 71 mm[Hg] Dr. Kin Herr Work Phone: [facility] Work Phone: 03-02-2022 14:58-0400 Heart rate 83 /min Dr. Kin martínez Work Phone: [facility] Work Phone: 03-02-2022 14:58-0400 Respiratory rate 18 /min Dr. Kin martínez Work Phone: [facility] Work Phone: 03-02-2022 14:58-0400 Systolic blood pressure 111 mm[Hg] Dr. Kin Herr Work Phone: [facility] Work Phone: 03-02-2022 14:58-0400 Body height 162.[address] Kin martínez Work Phone: [facility] Work Phone: 03-02-2022 14:58-0400 Body mass index (BMI) [Ratio] 37.9 kg/m2 Dr. Kin Herr Work Phone: [facility] Work Phone: 03-02-2022 14:58-0400 Body weight 100.[address] Kin martínez Work Phone: [facility] Work Phone: 03-02-2022 14:58-0400 Diastolic blood pressure 71 mm[Hg] Dr. Kin Herr Work Phone: [facility] Work Phone: 03-02-2022 14:58-0400 Heart rate 83 /min Dr. Kin martínez Work Phone: [facility] Work Phone: 03-02-2022 14:58-0400 Respiratory rate 18 /min Dr. Kin martínez Work Phone: [facility] Work Phone: 03-02-2022 14:58-0400 Systolic blood pressure 111 mm[Hg] Dr. Kin Herr Work Phone: [facility] Work Phone: 01-12-2022 07:56-0500 Body height 162.[address] Kin martínez Work Phone: [facility] Work Phone: 01-12-2022 07:56-0500 Body mass index (BMI) [Ratio] 38.4 kg/m2 Dr. Kin Herr Work Phone: [facility] Work Phone: 01-12-2022 07:56-0500 Body weight 101.[address] Kin martínez Work Phone: [facility] Work Phone: 01-12-2022 07:56-0500 Diastolic blood pressure 82 mm[Hg] Dr. Kin Herr Work Phone: [facility] Work Phone: 01-12-2022 07:56-0500 Heart rate 96 /min Dr. Kin martínez Work Phone: [facility] Work Phone: 01-12-2022 07:56-0500 Respiratory rate 16 /min Dr. Kin martínez Work Phone: [facility] Work Phone: 01-12-2022 07:56-0500 SaO2% (BldA) [Mass fraction] 95 % Dr. Kin Herr Work Phone: [facility] Work Phone: 01-12-2022 07:56-0500 Systolic blood pressure 117 mm[Hg] Dr. Kin Herr Work Phone: [facility] Work Phone: Encounters Encounter Date Encounter Type Care Provider Facility Start: 06-13-2025 [facility] Facility :[facility] Start: 06-04-2025 End: 06-04-[address] Alessia Herr MD Work Phone: -Laboratory Specimen Start: 06-04-2025 End: 06-04-2025 Patient encounter procedure Ellie GALEANA -Laboratory Specimen Work Phone: Start: 06-04-2025 Encounter for gynecological examination (general) (routine) without abnormal findings Ellie Perdomo [facility] Start: 06-04-2025 End: 06-04-2025 Patient encounter procedure Ellie Perdomo CNM -[facility] @ Start: 06-04-2025 End: 06-04-2025 Patient encounter status Ellie Perdomo CNM [facility] Start: 06-04-2025 End: 06-04-[address] Alessia Herr MD Work Phone: -[facility] @ Start: 06-04-2025 End: 06-04-2025 [facility] Start: 02-26-2025 End: 02-26-2025 Patient encounter procedure Marielle CRANDALL -[facility] Work Phone: Start: 02-26-2025 End: 02-26-2025 ambulatory Jeff Carmenza Facility:[facility] Start: 02-21-2025 Registered Referred Self Referred -[facility] Work Phone: Start: 02-21-2025 ambulatory Self Referred Facility: [facility] Start: 01-29-2025 Non-patient / Non-visit Dr. Mina DUNCAN -[facility] Work Phone: Start: 01-29-2025 End: 01-29-[address] Alessia Herr MD Work Phone: [facility] Work Phone: Start: 01-29-2025 End: 01-29-2025 Patient encounter procedure Marielle CRANDALL -Pulmonary Services/Neurology Work Phone: Start: 01-29-2025 End: 01-29-2025 ambulatory [facility] Facility:[facility] Start: 01-24-2025 End: 01-24-[address] Alessia Herr MD Work Phone: [facility] Work Phone: Start: 01-24-2025 End: 01-24-2025 Patient encounter procedure Marielle Grissom PA -Laboratory Work Phone: Start: 01-24-2025 End: 01-24-2025 ambulatory Alessia Herr Facility:[facility] Start: 12-31-2024 End: 12-31-2024 Patient encounter procedure Katelyn Galicia PRODUCTION SUPPORT ANALYST-C -Laboratory Work Phone: Start: 12-31-2024 End: 12-31-2024 ambulatory Alessia Herr Facility:[facility] Start: 11-20-2024 ambulatory Alessia Herr Faci lity:[facility] Start: 11-11-2024 End: 11-11-2024 Patient encounter procedure Marielle Grissom PA -Laboratory Work Phone: Start: 11-11-2024 End: 11-11-2024 ambulatory Alessia Herr Facility:[facility] Start: 11-01-2024 End: 11-01-2024 Patient encounter procedure Katelyn Galicia PRODUCTION SUPPORT ANALYST-C -Ultrasound, [facility] Work Phone: Start: 11-01-2024 End: 11-01-2024 ambulatory Alessia Herr Facility:[facility] Start: 09-09-2024 End: 09-09-2024 ambulatory Alessia Herr Facility:[facility] Start: 06-26-2024 End: 06-26-2024 [facility] Start: 05-08-2024 End: 05-08-2024 Subsequent hospital visit by physician Davi Ramirez 1 [facility] Comment on above: Ventricular tachycar sobia (Multi); Supraventricular tachycardia (CMS-HCC); Other cardiomyopathies (Multi) Start: 05-08-2024 End: 05-08-2024 ambulatory MARIELLE GRISSOM [facility] Start: 03-05-2024 End: 03-05-2024 ambulatory [facility] Work Phone: Start: 03-05-2024 End: 03-05-2024 Patient encounter procedure [facility]-Radiology, [place] Work Phone: Start: 12-29-2023 End: 12-29-[address] Kin Herr Work Phone: [facility] Work Phone: Start: 12-29-2023 End: 12-29-[address] Kin Herr Work Phone: [facility] Work Phone: Start: 12-26-2023 End: 12-26-[address] Kin Herr Work Phone: [facility] Work Phone: Start: 12-26-2023 End: 12-26-[address] Kin Herr Work Phone: [facility]-Laboratory Work Phone: Start: 10-27-2023 End: 10-27-[address] Kin Herr Work Phone: [facility]-Pulmonary Services/Neurology Work Phone: Start: 10-02-2023 End: 10-02-[address] Kin Herr Work Phone: [facility] Work Phone: Start: 10-02-2023 End: 10-02-[address] Kin Herr Work Phone: [facility] Work Phone: Start: 06-28-2023 End: 06-28-2023 ambulatory [facility] Work Phone: Start: 06-28-2023 End: 06-28-2023 Patient encounter procedure [facility]-Laboratory Work Phone: Start: 10-14-2022 End: 10-14-[address] Kin Herr Work Phone: [facility] Work Phone: Start: 10-14-2022 End: 10-14-[address] Kin Herr Work Phone: [facility] Start: 10-12-2022 End: 10-12-[address] Kin Herr Work Phone: [facility] Work Phone: Start: 10-12-2022 End: 10-12-[address] Kin Herr Work Phone: [facility]-Laboratory Start: 10-04-2022 End: 10-04-[address] Kin Herr Work Phone: [facility] Start: 06-07-2022 End: 06-07-[address] Kin Herr Work Phone: [facility]-Laboratory, Specimen Start: 05-25-2022 End: 05-25-[address] Kin Herr Work Phone: [facility] Start: 04-12-2022 End: 04-12-[address] Kin Herr Work Phone: [facility]-Laboratory Start: 04-07-2022 Non-patient / Non-visit Dr. Broderick Herr Work Phone: [facility] Start: 04-07-2022 End: 04-07-2022 Admission to same day surgery center Dr. Kin Herr Work Phone: [facility]-[employer] Programmer/Special Procedures Start: 03-29-2022 End: 03-29-[address] Kin Herr Work Phone: [facility] Start: 03-02-2022 End: 03-02-[address] Kin Herr Work Phone: [facility] Start: 02-16-2022 Non-patient / Non-visit Dr. Broderick Herr Work Phone: [facility] Start: 02-16-2022 End: 02-16-[address] Kin Herr Work Phone: [facility]-Cardiovascu lar Services Start: 01-12-2022 End: 01-12-[address] Kin Herr Work Phone: [facility] Start: 12-21-2021 End: 12-21-[address] Kin Herr Work Phone: [facility]-Laboratory, Specimen Start: 11-30-2021 End: 11-30-[address] Kin Herr Work Phone: [facility]-Laboratory Procedures Date Procedure Procedure Detail Performing Clinician Start: 06-04-2025 Liquid based cervica l cytology screening Dr. Alessia Herr MD Work Phone: Comment on above: NEGATIVE FOR INTRAEP ITHELIAL LESION OR MALIGNANCY. This liquid based Th inPrep(R) pap test was screened withthe use of an image guided system. Start: 11-01-2024 US scan of thyroid Dr. Alessia Herr MD Work Phone: Start: 03-05-2024 Radiography of ankle Start: 03-05-2024 X-ray of both feet Start: 12-29-2023 US scan of thyroid Dr. Kin Herr Work Phone: Start: 10-14-2022 US scan of thyroid Dr. Kin Herr Work Phone: Start: 03-29-2022 Plain chest X-ray Dr. Radha Herr Work Phone: Start: 02-16-2022 Radionuclide imaging of perfusion of myocardium under exercise stress Dr. Kin Herr Work Phone: Plan of Treatment Date Care Activity Detail Author Start: 06-13-2025 MG Breast - bilatera l Screening [facility] Start: 07-14-2024 Influenza vaccination Influenz a Vaccine (Season Ended) [facility] Start: 07-14-2023 COVID-19 Vaccine ( season) COVID-19 Vaccine ( season) [facility] Start: 2017 Zoster Vaccines (1 of 2) Zoste r Vaccines (1 of 2) [facility] Start: 2007 Screening for malign ant neoplasm of breast Mammogram [facility] Start: 1989 DTaP/Tdap/Td Vaccine s (1 - Tdap) DTaP/Tdap/Td Vaccines (1 - Tdap) [facility] Start: 01-27-1988 Screening for malign ant neoplasm of cervix [facility] Start: 1986 Hepatitis B Vaccines (1 of 3 - 19+ 3-dose series) Hepatitis B Vaccines (1 of 3 - 19+ 3-dose series) [facility] Start: 1985 Hepatitis C screening Hepatiti s C Screening [facility] Start: 01-27-1968 MMR Vaccines (1 of 1 - Standard series) MMR Vaccines (1 of 1 - Standard series) [facility] Start: 1967 [facility] Start: 1967 Lipid panel Lipid Panel [facility] Start: 1967 Screening for malign ant neoplasm of colon [facility] Start: 1967 Yearly Adult Physical Yearly A dult Physical [facility] Cardiac electrophysiology [facility] Work Phone: Cardiac event recording [facility] End: 05-08-2024 CT for calcium scoring WO contrast and CTA W contrast IV Heart and coronary arteries [facility] Service Area Work Phone: Comment on above: Once for 1 Occurrenc es starting 05/08/2024 until 05/08/2024 Liquid based cervica l cytology screening [facility] MG Breast - bilatera l Screening [facility] US Pelvis transvaginal [facility] Payers Date Payer Category Payer Unknown [id number] 2024 Self-pay [id number] 2023 Unknown [employer] [id number] 2023-Present [address] [place] [address] [id number] 2023 Unknown [id number] 2009 Unknown [id number] 1965 Unknown [id number] Unknown [facility] PACKAGE PLAN [id number] Unknown [id number] Unknown [id number] Unknown [id number] Unknown [id number] Unknown [id number] Unknown [id number] Unknown [id number] Unknown [id number] Unknown [id number] Unknown [id number] Unknown [id number] Unknown [id number] Unknown [id number] Unknown [id number] Social History Date Type Detail Facility Start: 01-12-2022 End: 10-02-2023 Tobacco smoking status NHIS Unknown if ever smoked [facility] Start: 1965 Sex Assigned At Female [facility] Start: 1965 Sex assigned at Not on file [facility] Work Phone: Gender identity Not on file [facility] Start: 04-28-2024 End: 05-08-2024 Exposure to SARS-CoV-2 (event) Not sure [facility] Start: 10-02-2023 End: 06-04-2025 Tobacco smoking status NHIS Never smoked tobacco (finding) [facility] Start: 02-04-2025 End: 02-07-2025 Sex Female (finding) [facility] Sexual Orientation Heterosexual (finding) [facility] Clinical Notes 12-21-2021 to 06-04-2025 Note Date & Type Note Facility 06-04-2025 Progress note [facility] 02-26-2025 Evaluation note Diagnosis Onset Date Resolution AVNRT (AV nii re-entry tachycardia) acute February 26, 2025 2:46pm Non-ischemic cardiomyopathy acute February 26, 2025 2:46pm Nonsustained paroxysmal ventricular tachycardia acute February 262024 2:46pm Abnormal uterine bleeding acute June 04, 2025 7:52am Encounter for routine gynecological examination noneactive June 04, 2025 7:52am [facility] Work Phone: 1(269) 896-335402-08-2022 NotePap Smear Specimen AdequacyFebruary 2021 5:00pmCommentSatisfactory for evaluation. Endocervical and/or squamous metaplasticcells (endocervical component)are present.[facility] A#[id number] Work Phone: Comment on above:Satisfactory for evaluation. Endocervical and/or squamous metaplasticcells (endocervical component)are present.12-21-2021 NotePap Smear Specimen AdequacyFebruary 2021 5:00pm CommentSatisfactory for evaluation. Endocervical and/or squamous metaplasticcells (endocervical component)are present.[facility] A#[id number] Work Phone: Comment on above:Satisfactory for evaluation. Endocervical and/or squamous metaplasticcells (endocervical component)are present.12-21-2021 NotePap Smear Specimen AdequacyFebruary 2021 5:00pm CommentSatisfactory for evaluation. Endocervical and/or squamous metaplasticcells (endocervical component)are present.[facility] A#[id number] Health [facility] Work Phone: Comment on above:Satisfactory for evaluation. Endocervical and/or squamous metaplasticcells (endocervical component)are present.12-21-2021 NotePap Smear Specimen AdequacyFebruary 2021 5:00pm CommentSatisfactory for evaluation. Endocervical and/or squamous metaplasticcells (endocervical component)are present.[facility] A#[id number] Work Phone: Comment on above:Satisfactory for evaluation. Endocervical and/or squamous metaplasticcells (endocervical component)are present.Evaluation note* Diagnosis Onset Date Resolution Status Nonsustained paroxysmal ventricular tachycardia [facility] Work Phone: Evaluation note* Diagnosis Onset Date Resolution Status Nonsustained paroxysmal ventricular tachycardia acute AVNRT (AV nii re-entry tachycardia) acute Nonsustained paroxysmal ventricular tachycardia [facility] Work Phone: Evaluation note* Diagnosis Onset Date Resolution Status AVNRT (AV nii re-entry tachycardia) acute Nonsustained paroxysmal ventricular tachycardia acute AVNRT (AV nii re-entry tachycardia) acute Nonsustained paroxysmal ventricular tachycardia acute [facility] Work Phone: Evaluation note* Diagnosis Onset Date Resolution Status AVNRT (AV nii re-entry tachycardia) acute Nonsustained paroxysmal ventricular tachycardia acute [facility] Work Phone: Evaluation noteNo assessment information available [facility] Work Phone: Evaluation note* Diagnosis Ventricular tachycardia (Multi) Paroxysmal ventricular tachycardia Supraventricular tachycardia (CMS-HCC) Other specified cardiac dysrhythmias Other cardiomyopathies (Multi) documented in this encounter [facility] Work Phone: Progress note Author Ellie Perdomo [facility] Note Date/Time June 04, 2025 9:01 am [facility] [address], [address] [place] [address] OFFICE VISIT Date of Service: 06/04/25 MR#: [id number] Acct: [id number] Name: IRISH VAZQUEZ Rep #: [id number] : 1965 Provider: JESSE Perdomo Age/Sex: 60/F Location: [facility] Status: Signed Intake Vital Signs 09/09/24 08:33 02/26/25 14:49 06/04/25 08:21 06/04/25 08:26 Height 5 ft 4 in 5 ft 4 in 5 ft 4 in 5 ft 4 in Weight: 220 lb 233 lb BMI 37.8 39.9 BP 116/67 109/71 Blood Pressure Location Lt brachial Lt brachial Position Sitting Sitting Respiration 16 Pulse 77 Pulse Source NIBP Intake 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: No Is patient in pain?: No Allergies erythromycin base Allergy (Intermediate, Verified 06/04/25 08:22) hives Medications ?Medication ?Instructions ?Recorded ?Confirmed ?Type levothyroxine 25 mcg tablet 25 mcg PO DAILY 01/12/22 0 06/04/25 History metformin 500 mg tablet,extended 1,500 mg PO QAM 01/1206/04/25 History release 24 hr spironolactone 50 mg tablet 50 mg PO DAILY 01/12/22 History omega-3 fatty acids 1,000 mg 1,000 mg PO DAILY 4 06/04/25 History capsule omeprazole 40 mg capsule,delayed 40 mg PO QDAY 4 06/04/25 History release metoprolol succinate 25 mg 25 mg PO QHS #90 tabs 11/1106/04/25 Rx tablet,extended release 24 hr cholecalciferol (vitamin D3) 25 25 mcg PO QDAY 5 06/04/25 History mcg (1,000 unit) tablet magnesium oxide mg PO QPM 02/26/25 06/04/25 History Post menopausal: No Patient : No : No Do you think of yourself as: straight/heterosexual Current gender identity: female Control Method: tubal [facility] Medical History (Updated 06/04/25 @ 09:01 by Ellie Perdomo CNM) Simple cyst of breast Non-ischemic cardiomyopathy Type 2 diabetes mellitus Hypothyroidism Obesity Nonsustained paroxysmal ventricular tachycardia Surgical History (Updated 06/04/25 @ 08:27 by Yessy Anderson) S/P Family History (Updated 06/04/25 @ 08:30 by Yessy Anderson) Grandmother Arthritis Sister Bleeding disorder Father Diabetes Heart disease Hypertension High cholesterol Brother CVA (cerebral vascular accident) Social History (Updated 06/04/25 @ 08:34 by Yessy Anderson) adopted: No household members: family housing: house number of children: 4 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 pets and animals: Yes pets and animals: cat(s) and dog(s) history of recent travel: No sexually active: Yes Smoking Status: Never smoker second hand exposure: No alcohol intake: never substance use type: does not use well-balanced diet: daily or most days caffeine: Yes Type: carbonated beverages and coffee eating out: other details: 2-3/month during the past year weight has: remained stable what type of physical activity do you participate in: none shakir/oriental orthodox: Rastafarian seatbelt use: always do you feel safe at home: Yes additional social history: - Robin HPI Encounter for routine gynecological examination Details: IRISH VAZQUEZ is a 60 year old who presents for new annual exam. Previously saw [facility]- Having menses about every 9-10 months with spotting every 2 months.Bleeding will ebb and flow between bright red and brown. Has concerns that she is still having vaginal bleeding at age 60. discussed bleeding warning signs after menopause. Last PAP: 2021 History of abnormal PAP: yes 2020- Last mammogram: 4-5 years ago History of abnormal mammogram: benign cysts Colon cancer screenin Other preventative health care screenings: PCP Female Reproductive History Last Menstrual Period: 01/20/25 Questions: metorrhagia: No, sexually active: Yes, dyspareunia: No and PCB: No Menopausal Symptoms: Yes hot flashes and Yes night sweats ROS Const Constitutional: Reports system reviewed and no additional complaints, except as documented and night sweats Cardio Card: Reports system reviewed and no additional complaints, except as documented Resp Resp: Reports system reviewed and no additional complaints, except as documented GI GI: Reports system reviewed and no additional complaints, except as documented : Reports system reviewed and no additional complaints, except as documented and hot flashes; Denies difficulty voiding, dysuria or urinary frequency Skin Skin/Breast: Reports system reviewed and no additional complaints, except as documented Neuro Neuro: Reports system reviewed and no additional complaints, except as documented Psych Psych: Reports system reviewed and no additional complaints, except as documented; Denies anhedonia, anxiety or depression Exam Const General: cooperative, healthy appearing, comfortable and no acute distress Orientation: alert, awake and oriented x3 Neck Neck: normal visual inspection and full ROM Thyroid: thyroid normal Chest Breast inspection: normal inspection of the breasts and normal inspection of theaxillae Breast palpation: normal palpation of the breasts and normal palpation of the axillae Resp Effort & Inspection: normal respiratory effort, able to speak in complete sentences and symmetric chest movement GI Inspection: normal to inspection Palpation: soft Rectal Exam: visual inspection normal External Female Exam: normal external appearance and normal appearance of the urethra Urethra: normal appearance of the urethra Speculum Exam - Vagina: normal appearance of the vagina and normal vaginal discharge Speculum Exam - Cervix: normal appearance of the cervix and nontender Bimanual Exam- Vagina & Uterus: normal bimanual exam, normal palpation, uterine size normal, No tender, non-tender, enlarged (palpates significantly larger thanexpected ) bilaterally and nontender Bimanual Exam- Adnexa, other: normal Pelvic Support: normal Skin General: no rashes or lesions noted Neuro General: patient alert, patient awake and patient oriented x3 Cognition: normal cognition Speech: speech normal Gait: normal gait Extrem General: normal to inspection and full ROM Psych Appearance: grossly normal and well kempt Mental Status: mental status grossly normal Affect: normal affect Speech and Movement: speech and movement normal Attitude: cooperative Thought Process: normal Thought Content: normal Judgment: judgment good Coding Level of Care Code Off vis,new,prev 40-64yrs Diagnoses Encounter for routine gynecological examination Z01.419 Abnormal uterine bleeding N93.9 Assessment and Plan Assessment and Plan (1) Encounter for routine gynecological examination: (2) Abnormal uterine bleeding: Status: Acute Comment: TVUS Will consider labs/possible EMB Plan: TVUS if abnormal-consider labs and EMB Orders: Orders SCRN MAMM (CAD)W/MARIO ALBERTO BILAT Today N93.9 - Abnormal uterine and vaginal bleeding, unspecified PAP IG HPV APTIMA 16/18,45 Today Transvaginal Non- Today N93.9 - Abnormal uterine and vaginal bleeding, unspecified Plan Details Additional Comments: Cervical cancer screening:today Breast cancer screening: ordered STD prevention and contraceptive options including their risks, benefits, and alternatives were reviewed with the patient and she chooses: Declines Encouraged maintenance of a healthy weight and active lifestyle and handout given. Calcium/vitamin D recommendations provided. Annual exam handout including recommendations for good health guidelines and basic screening information given. Problem list up to date, see problem list details for any additional plan information. follow up in one year for annual health maintenance exam or sooner if needed. 06/04/25 0901 <Electronically signed by Ellie caldera CNM> Date _ Ellie Perdomo CNM Cosigner Signature: Date (if applicable) CC: ~ [employer] Work Phone: Reason for referral (narrative)No reason for referral [facility] Work Phone: Chief Complaint and Reason for Visit Chief Complaint CP (JORDAN) ventricular tachycardia Reason for Visit Nonsustained paroxys mal ventricular tachycardia Chief Complaint CP (JORDAN) ventricular tachycardia 6 wk FU EKG/EPS Instructions GENARO Reason for Visit Nonsustained paroxys mal ventricular tachycardia AVNRT (AV nii re-entry tachycardia) Nonsustained paroxysmal ventricular tachycardia Chief Complaint CP (JORDAN) ventricular tachycardia 6 wk FU EKG/EPS Instructions GENARO AV/MALINA AV/MALINA Reason for Visit Nonsustained paroxys mal ventricular tachycardia AVNRT (AV nii re-entry tachycardia) Nonsustained paroxysmal ventricular tachycardia Chief Complaint ventricular tachycar sobia 6 wk FU EKG/EPS Instructions GENARO AV/MALINA AV/MALINA 3 M FU Reason for Visit AVNRT (AV nii re-e ntry tachycardia) Nonsustained paroxysmal ventricular tachycardia AVNRT (AV nii re-entry tachycardia) Nonsustained paroxysmal ventricular tachycardia Chief Complaint 3-4 MO F/U Reason for Visit AVNRT (AV nii re-e ntry tachycardia) Nonsustained paroxysmal ventricular tachycardia Chief Complaint 3-4 MO F/U GOITER Reason for Visit AVNRT (AV nii re-e ntry tachycardia) Nonsustained paroxysmal ventricular tachycardia Chief Complaint 1 y fu E-ORDER Reason for Visit AVNRT (AV nii re-e ntry tachycardia) Nonsustained paroxysmal ventricular tachycardia Chief Complaint 1 y fu E-ORDER Supraventricular tachycardia, unspecified GOITER Reason for Visit AVNRT (AV nii re-e ntry tachycardia) Nonsustained paroxysmal ventricular tachycardia Chief Complaint GOITER pain fall pain, fall- RIGHT FOOT, LEFT ANKLE Chief Complaint Admit Date NONTOXIC MULTINODULAR GOITER November 012023 12:42pm INT LAB ORDERS January 24, 2025 3:4 7pm PALPITATIONS January 29, 2025 6:5 8am PALPITATIONS January 29, 2025 7:1 1am Chief Complaint Admit Date SCREENING February 21, 2025 8:1 5am 4 M FU February 26, 2025 2:4 6pm Annual (TERRAZZO LAYER HELPER) June 04, 2025 7:52 am Reason for Visit Admit Date AVNRT (AV nii re-entry tachycardia) Ap ril 2024 2:46pm Non-ischemic cardiomyopathy February 26, 2025 2:46pm Nonsustained paroxysmal ventricular tach ycardia February 26, 2025 2:46pm Abnormal uterine bleeding June 04 7:52am Encounter for routine gynecological exam ination June 04, 2025 7:52am Chief Complaint Admit Date SCREENING February 21, 2025 8:1 5am 4 M FU February 26, 2025 2:4 6pm Annual (TERRAZZO LAYER HELPER) June 04, 2025 7:52 am ANNUAL NON- June 04, 2025 5:07 pm Advance Directives No Advanced Directives Records Found Advance Directive Response Recorded Date/ Time Advance Directives Yes April 07 9:41am Living Will Yes April 07, 2022 9 :41am Power of Supervising Film Or Videotape Editor Yes April 07, 2022 9:41am Advance Directive Response Recorded Date/ Time Advance Directives on File No March 142021 9:41am Name of Medical Power of Supervising Film Or Videotape Editor Robin Tong r- April 07, 2022 9:41am Advance Directives Yes April 07 9:41am Living Will Yes April 07, 2022 9 :41am Power of Supervising Film Or Videotape Editor Yes April 07, 2022 9:41am Advance Directive Response Recorded Date/ Time Advance Directives Yes April 07 8:41am Living Will Yes April 07, 2022 8 :41am Power of Supervising Film Or Videotape Editor Yes April 07, 2022 8:41am Advance Directive Response Recorded Date/ Time Living Will Yes April 07, 2022 9 :41am Do you have a Healthcare Power of Supervising Film Or Videotape Editor? Yes April 07, 2022 9:41am Advance Directives Yes April 07 9:41am Summary Purpose Family History No Family History Records Found Relationship Condition Age at Onset Recorded Date/T lennie grandmother Arthritis Unknown sister Hemorrhagic disorder Unknown father Diabetes mellitus Unknown Cardiac disease Unknown Hypertension Unknown High blood cholesterol Unknown brother Cerebrovascular accident (CVA) Unknown Reason for Referral Specialty Diagnoses / Procedures Referred By Contac t Referred To Contact Radiology Diagnoses Ventricular tachycardia (Multi) Supraventricular tachycardia (CMS-HCC) Other cardiomyopathies (Multi) Procedures CT cardiac scoring wo IV contrast Marielle Grissom PA-C [id number] [facility] [address] [place] [address] Referral ID Status Reason Start Date Expiration Date Visits Requested Visits Authorized [id number] Authorized Perform Procedure 05/01/2024 05/01/2025 1 1 Additional Source Comments Goals (unrecognized section and content) Goals may be documented in a n alternate sectionGoals may be documented in an alternate sectionGoals may be documented in an alternate sectionGoals may be documented in an alternate sectionGoals may be documented in an alternate sectionGoals may be documented in an alternate sectionGoals may be documented in an alternate sectionGoals may be documented in an alternate sectionGoals may be documented in an alternate sectionGoals may be documented in an alternate sectionGoals may be documented in an alternate sectionGoals may be documented in an alternate sectionGoals may be documented in an alternate sectionGoals may be documented in an alternate sectionGoals may be documented in an alternate sectionGoals may be documented in an alternate section Care Teams (unrecognized sec tion and content) Team Status: Active Member Role Status Dates Dr. Kin Herr MD Family Provider Active Dr. Kin Herr MD Primary Care Provider Activ e Team Status: Inactive Member Role Status Dates Dr. Kin Herr MD Primary Care Provider Activ e Katelyn Galicia PRODUCTION SUPPORT ANALYST, PRODUCTION SUPPORT ANALYST-C Attending Provider, Referring Provider Active Team Status: Inactive Member Role Status Dates Dr. Kin Herr MD Primary Care Provider, Refe rring Provider Active Marielle CRANDALL PA Attending Provider Active Team Status: Inactive Member Role Status Dates Dr. Kin Herr MD Primary Care Provider Activ e Marielle CRANDALL PA Attending Provider, Referr ing Provider Active Team Status: Active Member Role Status Dates Dr. Kin Herr MD Primary Care Provider Activ e JAQUI FIGUEROA Attending Provider Active JAQUI FIGUEROA Active Team Status: Inactive Member Role Status Dates JAQUI FIGUEROA Attending Provider, Referring Provider Ac tive Dr. Kin Herr MD Primary Care Provider Activ e Team Status: Inactive Member Role Status Dates Dr. Kin Herr MD Primary Care Provider Activ e JAQUI FIGUEROA Attending Provider Active JAQUI FIGUEROA Active Team Status: Active Member Role Status Dates Dr. Alessia Herr MD Family Provider Active Dr. Aelssia Herr MD Primary Care Provider Acti ve Team Status: Inactive Member Role Status Dates Dr. Alessia Herr MD Primary Care Provider Acti ve JAQUI FIGUEROA Attending Provider Active JAQUI FIGUEROA Active Team Status: Inactive Member Role Status Dates JAQUI FIGUEROA Attending Provider, Referring Provider Ac tive Dr. Alessia Herr MD Primary Care Provider Acti ve Team Status: Inactive Member Role Status Dates Dr. Alessia Herr MD Primary Care Provider, Attending Provider, Referring Provider Active Career Development Facilitator Relationship Specialty Start Date End Date Alessia Herr MD Replaced by [facility] Corina Charles [facility] [address] [place] [address] PCP - General Family Medicine 05/01/24 Team Status: Active Member Role Status Dates Dr. Alessia Herr MD Primary Care Provider Acti ve Team Status: Inactive Member Role Status Dates Dr. Alessia Herr MD Primary Care Provider Acti ve Start: November 01, 2024 End: November 01, 2024 Katelyn Galicia PRODUCTION SUPPORT ANALYST, PRODUCTION SUPPORT ANALYST-C Attending Provider Active Start: November 01, 2024 End: November 01, 2024 Katelyn Galicia PRODUCTION SUPPORT ANALYST, PRODUCTION SUPPORT ANALYST-C Referring Provider Active Start: November 01, 2024 End: November 01, 2024 Team Status: Inactive Member Role Status Dates Dr. Alessia Herr MD Primary Care Provider Acti ve Start: November 11, 2024 End: November 11, 2024 RAZ Logan Attending Provider Active Start: November 11, 2024 End: November 11, 2024 RAZ Logan Referring Provider Active Start: November 11, 2024 End: November 11, 2024 Team Status: Inactive Member Role Status Dates Dr. Alessia Herr MD Primary Care Provider Acti ve Start: December 31, 2024 End: December 31, 2024 Katelyn Galicia PRODUCTION SUPPORT ANALYST, PRODUCTION SUPPORT ANALYST-C Attending Provider Active Start: December 31, 2024 End: December 31, 2024 Katelyn Galicia PRODUCTION SUPPORT ANALYST, PRODUCTION SUPPORT ANALYST-C Referring Provider Active Start: December 31, 2024 End: December 31, 2024 Team Status: Inactive Member Role Status Dates Dr. Alessia Herr MD Primary Care Provider Acti ve Start: January 24, 2025 End: January 24, 2025 Marielle Grissom PA, PA Attending Provider Active Start: January 24, 2025 End: January 24, 2025 Marielle Grissom PA, PA Referring Provider Active Start: January 24, 2025 End: January 24, 2025 Team Status: Active Member Role Status Dates Dr. Alessia Herr MD Primary Care Provider Acti ve Start: January 29, 2025 Marielle Grissom PA, PA Attending Provider Active Start: January 29, 2025 Marielle Grissom PA, PA Referring Provider Active Start: January 29, 2025 Team Status: Active Member Role Status Dates Dr. Alessia Herr MD Primary Care Provider Acti ve Start: January 29, 2025 Dr. Sherif Conroy MD Attending Provider Active S tart: January 29, 2025 Marielle Grissom PA, PA Referring Provider Active Start: January 29, 2025 Team Status: Inactive Member Role Status Dates Dr. Alessia Herr MD Primary Care Provider Acti ve Start: January 29, 2025 End: January 29, 2025 Marielle Grissom PA, PA Attending Provider Active Start: January 29, 2025 End: January 29, 2025 Marielle Grissom PA, PA Referring Provider Active Start: January 29, 2025 End: January 29, 2025 Team Status: Active Member Role/Relationship Status Dates Dr. Alessia Herr MD Primary Care Provider Acti ve Team Status: Active Member Role/Relationship Status Dates Dr. Alessia Herr MD Primary Care Provider Acti ve Start: February 21, 2025 Self Referred Attending Provider Active Start: A 2024 Self Referred Referring Provider Active Start: A 2024 Team Status: Inactive Member Role/Relationship Status Dates Dr. Alessia Herr MD Primary Care Provider Acti ve Start: February 26, 2025 End: February 26, 2025 Dr. Alessia Herr MD Referring Provider Active Start: February 26, 2025 End: February 26, 2025 Marielle Grissom PA, PA Attending Provider Active Start: February 26, 2025 End: February 26, 2025 Team Status: Inactive Member Role/Relationship Status Dates Dr. Alessia Herr MD Primary Care Provider Acti ve Start: June 04, 2025 End: June 04, 2025 Dr. Alessia Herr MD Referring Provider Active Start: June 04, 2025 End: June 04, 2025 Ellie Perdomo CNM Attending Provider Active S tart: June 04, 2025 End: June 04, 2025 Team Status: Inactive Member Role/Relationship Status Dates Dr. Alessia Herr MD Primary Care Provider Acti ve Start: June 04, 2025 End: June 04, 2025 Ellie Perdomo CNM Attending Provider Active S tart: June 04, 2025 End: June 04, 2025 Ellie Perdomo CNM Referring Provider Active S tart: June 04, 2025 End: June 04, 2025 INFORMATION SOURCE (unrecogn ized section and content) DATE CREATED AUTHOR 06/04/2024 [facility] DATE CREATED AUTHOR AUTHOR'S ORGANIZ ATION 06/12/2025 [facility] Reason for Visit (unrecogniz ed section and content) Specialty Diagnoses / Procedures Referred By Contac t Referred To Contact Radiology Diagnoses Ventricular tachycardia (Multi) Supraventricular tachycardia (CMS-HCC) Other cardiomyopathies (Multi) Procedures CT cardiac scoring wo IV contrast Marielle Grissom PA-C [address] [facility] [address] [address] Referral ID Status Reason Start Date Expiration Date Visits Requested Visits Authorized [id number] Authorized Perform Procedure 05/01/2024 05/01/2025 1 1 FOR RECORDS PERTAINING TO PATIENTS WHO ARE OR HAVE BEEN ENROLLED IN A CHEMICAL DEPENDENCY/SUBSTANCEABUSE PROGRAM, SOME INFORMATION MAY BE OMITTED. This clinical summary was aggregated from multiple sources. Caution should be exercised in using it in the provision of clinical care. This summary normalizes information from multiple sources, and as a consequence, information in this document may materially change the coding, format and clinical context of patient data. In addition, data may be omitted in some cases. CLINICAL DECISIONS SHOULD BE BASED ON THE PRIMARY CLINICAL RECORDS. [employer] [facility]. provides no warranty or guarantee of the accuracy or completeness of information in this document.
== END | disposition home or self-care (01) ==
LOC: OPUS 07:34
PROVIDERS: PCP Family Medicine; Referring Provider Advanced Practice Midwife; Visit Provider Advanced Practice Midwife
DX: Z12.31 Encounter for screening mammogram for malignant neoplasm of breast (principal)
CPT/HCPCS: 76830; 77063; 77067

== ENCOUNTER → 2025-06-27 | Outpatient (CLI) | payer OTHER, SELFPAY ==
[2025-06-27 10:19] LABS: AST(SGOT) 18 U/L (<=31); Alanine Aminotransfer ALT/SGPT 17 U/L (<=34); Anion Gap 13 (5-15); BUN 19 mg/dL (4-19); BUN/Creat Ratio 25.2 RATIO (10-20); Calcium,Total 9.4 mg/dL (7.6-11.0); Carbon Dioxide 23.9 mmol/L (21.0-32.0); Chloride 100 mmol/L (98-108); Cholesterol 193 mg/dL (<=200); Glucose 86 mg/dL (70-99); Low Density Lipoprotein Calc. 123 mg/dL; Potassium 4.7 mmol/L (3.3-5.1); Triglycerides 110 mg/dL; Very Low Density Lipoprotein 22 mg/dL (5-40); cholesterol:hdl ratio screen 4.01
== END | disposition home or self-care (01) ==
LOC: LAB 09:07
PROVIDERS: PCP Family Medicine; Referring Provider Nurse Practitioner Adult Health; Visit Provider Nurse Practitioner Adult Health
DX: E28.2 Polycystic ovarian syndrome (principal); E78.2 Mixed hyperlipidemia; E66.89 Other obesity not elsewhere classified; E03.8 Other specified hypothyroidism
CPT/HCPCS: 36415; 80048; 80061; 83036; 84439; 84443; 84450; 84460

== ENCOUNTER → 2025-06-30 | Outpatient (CLI) | payer OTHER, SELFPAY ==
[2025-06-30 17:33] LABS: Follicle Stimulating Hormone 10.6 mIU/mL
== END | disposition home or self-care (01) ==
LOC: BWCLAB 16:29
PROVIDERS: PCP Family Medicine; Referring Provider Obstetrics & Gynecology; Visit Provider Obstetrics & Gynecology
DX: N93.9 Abnormal uterine and vaginal bleeding, unspecified (principal)
CPT/HCPCS: 36415; 82670; 83001; 83002

== ENCOUNTER 2025-08-08 06:00 | Day surgery (SDC) | payer OTHER, SELFPAY ==
--- NOTE | 2025-08-01 07:24 | EKG12_ITS ---
Test Reason : PREOP Blood Pressure : */* mmHG Vent. Rate : 71 BPM Atrial Rate : 71 BPM P-R Int : 142 ms QRS Dur : 92 ms QT Int : 392 ms P-R-T Axes : -23 48 23 degrees QTcB Int : 425 ms Normal sinus rhythm Normal ECG Confirmed by GAUTAM DUNCAN, GABRIELLE ([id number]), features editor YOAN FLORES ([id number]) on 08/01/2025 2:19:05 PM Referred By: Fabiola Jorgensen Confirmed By: GABRIELLE FLOREZ MD
[2025-08-01 08:09] LABS: Hematocrit 37.1 % (37-47); Hemoglobin 12.4 g/dL (12.0-15.0); Mean Corp Hgb Conc 33.4 g/dL (32-36); Mean Corpuscular Volume 85.5 fL (81-99); Mean Platelet Vol. 9.7 fl (6.2-12.0); Platelet Count 234 K/mm3 (150-450); RBC Distribution Width CV 14.9 % (11.6-14.6); RBC Distribution Width SD 46.4 fl (35.1-43.9); Red Blood Count 4.34 M/mm3 (4.2-5.4); White Blood Count 8.0 K/mm3 (4.4-11.0)
[2025-08-01 09:03] LABS: AST(SGOT) 18 U/L (<=31); Alanine Aminotransfer ALT/SGPT 16 U/L (<=34); Albumin, Serum 3.9 g/dL (3.5-5.0); Alkaline Phosphatase 82 U/L (35-104); Anion Gap 12 (5-15); BUN 13 mg/dL (4-19); BUN/Creat Ratio 18.7 RATIO (10-20); Calcium,Total 9.2 mg/dL (7.6-11.0); Carbon Dioxide 22.9 mmol/L (21.0-32.0); Chloride 102 mmol/L (98-108); Globulin 3.0 g/dL (2.2-4.2); Glucose 126 mg/dL (70-99); Potassium 4.1 mmol/L (3.3-5.1)
--- NOTE | 2025-08-01 13:38 | PAT.ANESEVAL ---
Pre-Assessment Diagnosis/Proposed Procedure Planned Operative Procedure(s): HYSTEROSCOPY D&C Anesthesia History Anesthesia History - offline editor: Anesthesia History - offline editor Hx Hospitalization No 07/30/25 09:06 Any Problems With Anesthesia No 07/30/25 09:06 Cholinesterase deficiency No 07/30/25 09:06 You/Your Family Experience No 07/30/25 09:06 fever (hyperthermia) with Relationship Recent Exposure to Contagious Disease Does patient have nerve No 07/30/25 09:06 stimulator Patient instructed to have device shut off --Does patient have Pacemaker or ICD? When Was Last Pacemaker Check QUESTION #4 FULL TEXT: You/Your Family Experience fever (hyperthermia) with Anesthesia Last Oral Intake Last Oral intake: Last Oral Intake NPO since Meds taken in AM with sips of water? Meds patient instructed to take am of surgery PONV PONV - offline editor: PONV - offline editor Female Yes 07/30/25 09:06 HX of Motion Sickness Yes 07/30/25 09:06 HX of N/V After Surgery No 07/30/25 09:06 Non-Smoker Yes 07/30/25 09:06 Duration of Surgery greater No 07/30/25 09:06 than 60 minutes Number of Risk Factors 3 07/30/25 09:06 PONV Score Moderate Risk 07/30/25 09:06 Height & Weight Height & Weight: Anesthesia: Height & Weight Height 5 ft 4 in 06/30/25 15:53 Respiratory Assessment Respiratory Assessment - offline editor: Respiratory Tract Infection Hx - offline editor Hx Respiratory Tract Infection No 07/30/25 09:06 STOP Sleep Apnea STOP Sleep Apnea - offline editor: STOP Sleep Apnea - offline editor Hx Hypertension No 07/30/25 09:06 Hx Sleep Apnea No 07/30/25 09:06 CPAP BIPAP Do you snore loudly (louder No 07/30/25 09:06 than talking or can be heard Do you often feel tired/ No 07/30/25 09:06 fatigued/ sleepy during daytime? Has anyone observed you stop No 07/30/25 09:06 breathing during sleep? STOP Results Negative 07/30/25 09:06 QUESTION #5 FULL TEXT : Do you snore loudly (louder than talking or can be heard through closed doors)? 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 Specify any problems Hx of Preganancy in last 3 No 07/30/25 09:06 Months Nurse Filling Out Transfusion DSCHRIBER 07/30/25 09:06 & Questions: Date: 07/30/25 07/30/25 09:06 Time: 09:08 07/30/25 09:06 Patient unable to answer at this time (ie. confused, unrespo /Reproduction History /Reproductive History - offline editor: /Reproductive Hx- offline editor Hx Now No 07/30/25 09:06 Gestational Age (in weeks): EDC: Hx Hx Para Hx Section SAB No 07/30/25 09:06 PFS Medical History (Updated 07/30/25 @ 09:14 by Idalia Cartagena) Wears contact lenses Post-menopausal Dietary restriction Gastric reflux Non-smoker Leg cramps History of Holter monitoring History of echocardiogram History of stress test Cardiology follow-up encounter History of irregular heartbeat Non-ischemic cardiomyopathy Type 2 diabetes mellitus Hypothyroidism Obesity Nonsustained paroxysmal ventricular tachycardia Home Medications ?Medication ?Instructions ?Recorded ?Last Taken ?Type levothyroxine 25 mcg tablet 25 mcg PO DAILY 01/12/22 Unknown History metformin 500 mg tablet,extended 1,500 mg PO QAM 01/12/22 04/06/22 History release 24 hr spironolactone 50 mg tablet 50 mg PO DAILY 01/12/22 Unknown History omega-3 fatty acids 1,000 mg 1,000 mg PO DAILY 04/03/24 Unknown History capsule metoprolol succinate 25 mg 25 mg PO QHS #90 tabs 11/11/24 Unknown Rx tablet,extended release 24 hr cholecalciferol (vitamin D3) 25 25 mcg PO QDAY 02/26/25 Unknown History mcg (1,000 unit) tablet berberine chloride 500 mg capsule 500 mg PO DAILY 07/30/25 Unknown History Allergy/AdvReac Type Severity Reaction Status Date / Time erythromycin base Allergy Intermediate hives Verified 07/30/25 09:02 Family History Grandmother Arthritis Sister Bleeding disorder Father Diabetes Heart disease Hypertension High cholesterol Brother CVA (cerebral vascular accident) Surgical History (Updated 07/30/25 @ 09:14 by Idalia Cartagena) History of cardiac radiofrequency ablation S/P Social History adopted: No household members: family housing: house number of children: 4 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 pets and animals: Yes pets and animals: cat(s) and dog(s) history of recent travel: No sexually active: Yes Smoking Status: Never smoker second hand exposure: No alcohol intake: never substance use type: does not use well-balanced diet: daily or most days caffeine: Yes Type: carbonated beverages and coffee eating out: other details: 2-3/month during the past year weight has: remained stable what type of physical activity do you participate in: none shakir/anabaptism: [employer]regation seatbelt use: always do you feel safe at home: Yes additional social history: - Robin Audit: Pertinent Findings Pertinent Findings EKG Perinent findings: 03/29/2022. Sinus rhythm within normal limits. Echo (EF%) pertinent findings: 02/16/2022. EF 55%. Normal size normal function. Consult pertinent findings: Cardiology 02/26/2025. Nonsustained paroxysmal ventricular tachycardia. Controlled with metoprolol. And magnesium. Nonischemic cardiomyopathy. EF 45 to 50% per echo 2003. Most recent echo shows EF of 55% continue metoprolol. Recommendation Anesthesia Recommendation Anesthesia recommendation: OPTIMIZED for anesthesia
[2025-08-08] VITALS (9 sets, daily range): BP systolic 107–136; BP diastolic 65–81; PULSE 66–77; RESP 16–20; TEMP 36–36.2; O2SAT 95–99; BMI 37.3
--- OUTSIDE RECORDS SUMMARY | 2025-08-08 06:02 | XMS RPT_ITS | CCD ---
Author Organization [facility] Care Team Providers Care Flight Attendant Inflight Services Name Role Phone Dr. Kin Herr Primary Care Provider [phone] Dr. Kin Herr Referring Provider Dr. Sherif Conroy Attending Provider RAZ Fernandes Attending Provider Dr. Nikhil Thomas Referring Provider [phone] Nikhil Thomas Other Provider RAZ Fernandes Other Provider Dr. Kin Herr Primary Care Provider [phone] Dr. Sherif Conroy Attending Provider Dr. Kin Herr Referring Provider Dr. Kin Herr Primary Care Provider Dr. Kin Herr Referring Provider RAZ Fernandes Attending Provider Dr. Kin Herr Primary Care Provider Dr. Kin Herr Referring Provider RAZ Fernandes Attending Provider CANDELARIA GRISSOM Referring Efreni ALESSIA Sandoval Primary Care James Herr MD, Alessia Gould Primary Care Provide r Dr. Alessia Herr MD Primary Care Provider Grayson TELECOMMUNICATIONS FACILITY EXAMINER-C, Katelyn Attending Provider Grayson TELECOMMUNICATIONS FACILITY EXAMINER-C, Katelyn Referring Provider Candelaria Fernandes Attending Provider Candelaria Fernandes Referring Provider Marycarmen DUNCAN, Dr. Gorman Attending Provider [phone] Carmenza DUNCAN, Dr. Sesay Primary Care Provider Referred, Self Attending Provider Unavailable Referred, Self Referring Provider Unavailable Carmenza DUNCAN, Dr. Sesay Referring Provider Candelaria Fernandes Attending Provider Conor MOLINA, Ellie Attending Provider [phone] Ellie Perdomo CNM Referring Provider [phone] Carmenza DUNCAN, Dr. Sesay Primary Care Provider Carmenza DUNCAN, Dr. Sesay Primary Care Provider Carmenza DUNCAN, Dr. Sesay Referring Provider Grayson TELECOMMUNICATIONS FACILITY EXAMINER-C, Katelyn Attending Provider Grayson TELECOMMUNICATIONS FACILITY EXAMINER-C, Katelyn Referring Provider Dr. Fabiola Jorgensen DO Attending Provider Dr. Fabiola Jorgensen DO Referring Provider Carmenza, Alessia Primary Care Unavailable Ellie Perdomo Referring Unavailable Conor Ellie Attending Unavailable Conor Ellie Attending Unavailable Ranrisa, Christopher Primary Care Unavailable Conor Ellie Referring Unavailable Ranney, Christopher Primary Care Unavailable Ranrisa, Christopher Referring Unavailable Ellie Perdomo Attending Unavailable Carmenza, Christopher Primary Care Unavailable Candelaria Fernandes Referring Unavail able Sherif Conroy Attending Unavailable Ranrisa, Christopher Primary Care Unavailable Ranney, Christopher Referring Unavailable Ellie Perdomo Attending Unavailable Fabiola Jorgensen Attending Unavailabl e Ranrisa, Christopher Primary Care Unavailable Ranney, Christopher Referring Unavailable Ranney, Christopher Primary Care Unavailable Ranney, Christopher Referring Unavailable Candelaria Fernandes Attending Unavail able [facility] Unavailable Grayson TELECOMMUNICATIONS FACILITY EXAMINER, Katelyn Attending Unavailable Grayson TELECOMMUNICATIONS FACILITY EXAMINER, Katelyn Referring Unavailable Fabiola Jorgensen Referring Unavailabl e Feliberto Anne, Fabiola Attending Unavailabl e [facility] Unavailable [facility] Unavailable Grayson TELECOMMUNICATIONS FACILITY EXAMINER, Katelyn Referring Unavailable Grayson TELECOMMUNICATIONS FACILITY EXAMINER, Katelyn Attending Unavailable Fabiola Jorgensen Referring Unavailabl e Fabiola Jorgensen Attending Unavailabl e [facility] Unavailable [facility] Unavailable Candelaria Fernandes Referring Unavail able Candelaria Fernandes Attending Unavail able [place] Referring Unavailable [facility] Unavailable Candelaria Fernandes Attending Unavail able [facility] Unavailable Grayson TELECOMMUNICATIONS FACILITY EXAMINER, Katelyn Referring Unavailable Grayson TELECOMMUNICATIONS FACILITY EXAMINER, Katelyn Attending Unavailable [facility] Unavailable Candelaria Fernandes Attending Unavail able Candelaria Fernandes Referring Unavail able [facility] Unavailable Candelaria Fernandes Referring Unavail able Candelaria Fernandes Attending Unavail able Referred, Self Referring Unavailable Referred, Self Attending Unavailable [facility] Unavailable Allergies Allergy Classification Reported Allergen(s) Allergy Type Date of Onset Reaction(s) Facility (20 sources) Erythromycin Drug Allergy [address] [facility] (1 source) ALLERGIES NOT ON FILE; Translations: [ALLERGIES NOT ON FILE] Propensity to adverse reactions (disorder) [facility] 2 Repository (1 source) Erythromycin Drug Allergy 5 [facility] Repository Medications Current Medications Medication Drug Class(es) Dates Sig (Normalized) Sig (Original) cholecalciferol 0.025 mg oral tablet (20 sources) Vitamin D Start: 02-26-2025 take 1 [...] Oxide 240 mg magnesium powder in packet (6 sources) Start: 02-26-2025 take 1 mg by [...] 30, 2021 12:00am December 30, 2021 3:16pm [place]-3 Fatty Acids 1,000 mg capsule (8 sources) Start: 04-03-2024 take 1 capsule by mouth once daily [place]-3 Fatty Acids 1,000 mg capsule Active 1000 mg PO DAILY April 03, 2024 12:00am super omega 300 omeprazole 40 mg delayed release oral capsule (8 sources) Proton Pump Inhibitor Start: 09-09-2024 take [...] 2021 12:00am December 30, 2021 3:16pm Zinc (20 sources) Start: 08-30-2021 take 50 mg by [...] (Original) ascorbic acid 1000 mg oral tablet (20 sources) Vitamin C Start: 08-30-2021 End: 10-02-2023 [...] Discontinued 25 mg PO AT BEDTIME 60 November 11, 2024 11:59am November 11, 2024 [...] monitor 8 beat Diabetes mellitus without complication (20 sources) Type 2 diabetes mellitus; Translations: [Type 2 diabetes mellitus without complications] 12-30-2021 Chronic Nonspecific chest pain (20 sources) Atypical chest pain; Translations: [Other chest pain] 12-30-2021 Episodic Other female genital disorders (14 sources) Abnormal uterine bleeding; Translations: [Abnormal uterine and vaginal bleeding, unspecified] 06-04-2025 Chronic Comment on above: TVUSWill consider la bs/possible EMB Other female genital disorders (1 source) Abnormal uterine and vaginal bleeding, unspecified; Translations: [Abnormal uterine and vaginal bleeding, unspecified] Onset: 07-03-2025 Chronic Other nutritional; endocrine; and metabolic disorders (20 sources) Obesity; Translations: [Obesity, unspecified] 12-30-2021 Chronic Other screening for suspected conditions (not mental disorders or infectious disease) (2 sources) Encounter for screening mammogram for malignant neoplasm of breast; Translations: [Encounter for screening for malignant neoplasm of cervix] Onset: 06-10-2025 Episodic Kathleen-; endo-; and myocarditis; cardiomyopathy (except that caused by tuberculosis or sexually transmitted disease) (20 sources) Cardiomyopathy; Translations: [Other cardiomyopathies] Onset: 05-08-2024 02-16-2022 Chronic Comment on above: EF 45-50% per echo 2 004 Thyroid disorders (20 sources) Hypothyroidism; Translations: [Hypothyroidism, unspecified] Onset: 12-05-2024 12-30-2021 Chronic Unclassified (1 source) Ventricular tachycardia, unspecified (Multi); Translations: [Ventricular tachycardia, unspecified (Multi)] Onset: 05-08-2024 Unclassified (1 source) Supraventricular tachycardia, unspecified (CMS-HCC); Translations: [Supraventricular tachycardia, unspecified (CMS-HCC)] Onset: 05-08-2024 Past or Other Problems Problem Classification Problem Date Documented Date Episodic/Chronic Cardiac dysrhythmias (20 sources) Palpitations - rapid; Translations: [Palpitations] Onset: 02-07-2025 01-12-2022 Episodic Nausea and vomiting (9 sources) Diarrhea and vomiting; Translations: [Vomiting, unspecified] Onset: 12-06-2024 11-11-2024 Episodic Unclassified (1 source) Ventricular tachycardia, unspecified (Multi); Translations: [Ventricular tachycardia, unspecified (Multi)] Onset: 05-08-2024 Unclassified (1 source) Supraventricular tachycardia, unspecified (CMS-HCC); Translations: [Supraventricular tachycardia, unspecified (CMS-HCC)] Onset: 05-08-2024 Viral infection (20 sources) Disease caused by 2019-nCoV; Translations: [COVID-19] Onset: 08-30-2021 12-30-2021 Episodic Results Test Name Value Interpretation Reference Range Facility 12 Lead EKGon 08-01-2025 12 Lead EKG [facility] Cardiovascular Services [address] [place] [address] 12 Lead EKG 08/01/25 0736 MR#: [id number] Acct: [id number] Name: TAYLOR VAZQUEZ Rep #: [id number] : 1965 60 From: Sherif Conroy MD Attending Dr: Dr. Fabiola Jorgensen DO Statu s: PRE SDC Ordering Dr: Fabiola Jorgensen DO Date: 5 [place] [facility] [place] F C Admitted: Test Reason : PREOP Blood Pressure : */* mmHG Vent. Rate : 71 BPM Atrial Rate : 71 BPM P-R Int : 142 ms QRS Dur : 92 ms QT Int : 392 ms P-R-T Axes : -23 48 23 degrees QTcB Int : 425 ms Normal sinus rhythm Normal ECG Confirmed by SHERIF CONROY MD ([id number]), state editor YOAN FLORES ([id number]) on 08/01/2025 2:19:05 PM Referred By: Fabiola Jorgensen Confirmed By: SHERIF CONROY MD 08/01/25 1419 Date Sherif Conroy MD CC: Dr. lAessia Herr MD; Dr. Fabiola Jorgensen DO Signed Normal [facility] CBC-Complete Blood Cnt No Di ffon 08-01-2025 Erythrocyte distribution width (RBC) [Ratio] 14.9 % High 11.6-14.6 [facility] Comment on above: Performed By: #### L [id number], [id number] #### [facility] Laboratory [address] [place], [address] Hematocrit (Bld) [Volume fraction] 37.1 % Normal 37-47 [facility] Comment on above: Performed By: #### L [id number], [id number] #### [facility] Laboratory [address] [place], [address] Hemoglobin (Bld) [Mass/Vol] 12.4 g/dL Normal 12.0-15.0 [facility] Comment on above: Performed By: #### L [id number], [id number] #### [facility] Laboratory [address] [place], [address] MCH (RBC) [Entitic mass] 28.6 pg Normal 27.0-32.0 [facility] Comment on above: Performed By: #### L [id number], [id number] #### [facility] Laboratory [address] [place], [address] MCHC (RBC) [Mass/Vol] 33.4 g/dL Normal 32-36 [facility] Comment on above: Performed By: #### L [id number], [id number] #### [facility] Laboratory [address] [place], [address] MCV (RBC) [Entitic vol] 85.5 fL Normal 81-99 [facility] Comment on above: Performed By: #### L [id number], [id number] #### [facility] [address] [place], [address] Platelet mean volume (Bld) [Entitic vol] 9.7 fL Normal 6.2-12.0 [facility] Comment on above: Performed By: #### L [id number], [id number] #### [facility] [address] [place], [address] Platelets (Bld) [#/Vol] 234 10*3/uL Normal 150-450 [facility] Comment on above: Performed By: #### L [id number], [id number] #### [facility] [address] [place], [address] RBC (Bld) [#/Vol] 4.34 10*6/uL Normal 4.2-5.4 [facility] Comment on above: Performed By: #### L [id number], [id number] #### [facility] [address] [place], [address] RDW SD 46.4 fl High 35.1-43.9 [facility] Comment on above: Performed By: #### L [id number], [id number] #### [facility] [address] [place], [address] WBC (Bld) [#/Vol] 8.0 10*3/uL Normal 4.4-11.0 [facility] Comment on above: Performed By: #### L [id number], [id number] #### [facility] Laboratory [address] [place], [address] Comprehensive Metabolic Prof [facility] 08-01-2025 Albumin [Mass/Vol] 3.9 g/dL Normal 3.5-5.0 [facility] Comment on above: Performed By: #### L [id number], [id number] #### [facility] [address] [place], [address] Albumin/Globulin [Mass ratio] 1.3 {ratio} Normal 0.9-2.4 [facility] Comment on above: Performed By: #### L [id number], [id number] #### [facility] Laboratory [address] [place], [address] ALK PHOS 82 U/L Normal 35-104 [facility] Comment on above: Performed By: #### L [id number], [id number] #### [facility] [address] [place], [address] ALT [Catalytic activity/Vol] 16 U/L Normal <=34 [facility] Comment on above: Performed By: #### L [id number], [id number] #### [facility] [address] [place], [address] AST [Catalytic activity/Vol] 18 U/L Normal <=31 [facility] Comment on above: Performed By: #### L [id number], [id number] #### [facility] [address] [place], [address] Bilirubin [Mass/Vol] 0.20 mg/dL Normal 0.00-1.30 [facility] Comment on above: Performed By: #### L [id number], [id number] #### [facility] [address] [place], [address] BUN/CRE 18.7 RATIO Normal 10-20 [facility] Comment on above: Performed By: #### L [id number], [id number] #### [facility] [address] [place], [address] Calcium [Mass/Vol] 9.2 mg/dL Normal 7.6-11.0 [facility] Comment on above: Performed By: #### L [id number], [id number] #### [facility] [address] [place], [address] Chloride [Moles/Vol] 102 mmol/L Normal 98-108 [facility] Comment on above: Performed By: #### L [id number], [id number] #### [facility] [address] [place], [address] CO2 [Moles/Vol] 22.9 mmol/L Normal 21.0-32.0 [facility] Comment on above: Performed By: #### L [id number], [id number] #### [facility] [address] [place], [address] Creatinine [Mass/Vol] 0.68 mg/dL Low 0.70-1.20 [facility] Comment on above: Performed By: #### L [id number], [id number] #### [facility] [address] [place], [address] GAP 12 Normal 5-15 [facility] Comment on above: Performed By: #### L [id number], [id number] #### [facility] [address] [place], [address] GFR/1.73 sq M.predicted among non-blacks MDRD (S/P/Bld) [Vol rate/Area] 101 mL/min/{1.73_m2} Normal >60 [facility] Comment on above: Result Comment: mL/m in/1.73m2 CKD-EPI Creatinine Equation (2020) Performed By: #### L [id number], [id number] #### [facility] Laboratory [address] [place], [address] Globulin (S) [Mass/Vol] 3.0 g/dL Normal 2.2-4.2 [facility] Comment on above: Performed By: #### L [id number], [id number] #### [facility] [address] [place], [address] Glucose [Mass/Vol] 126 mg/dL High 70-99 [facility] Comment on above: Performed By: #### L [id number], [id number] #### [facility] [address] [place], [address] Potassium [Moles/Vol] 4.1 mmol/L Normal 3.3-5.1 [facility] Comment on above: Performed By: #### L [id number], [id number] #### [facility] [address] [place], [address] Sodium [Moles/Vol] 137 mmol/L Normal 133-145 [facility] Comment on above: Performed By: #### L [id number], [id number] #### [facility] [address] [place], [address] T PROT 6.9 g/dL Normal 5.9-8.4 [facility] Comment on above: Performed By: #### L [id number], [id number] #### [facility] [address] [place], [address] Urea nitrogen [Mass/Vol] 13 mg/dL Normal 4-19 [facility] Comment on above: Performed By: #### L [id number], [id number] #### [facility] Laboratory [address] [place], [address] MR/PAT.SURINDERon 08-01-2025 MR/PAT.SURINDER [facility] Medical Records Department [address] [place] [address] PAT - Anesthesia 08/01/25 1338 MR#: [id number] Acct: [id number] Name: TAYLOR VAZQUEZ Rep #: [id number] : 1965 60 From: Gregorio Parada MD PCP: Dr. 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 When Was Last Pacemaker Check QUESTION #4 FULL TEXT: You/Your Family Experience fever (hyperthermia) with Anesthesia Last Oral Intake Last Oral intake: Last Oral Intake NPO since Meds taken in AM with sips of water? 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 Female Yes 07/30/25 09:06 HX of Motion Sickness Yes 07/30/25 09:06 HX of N/V After Surgery No 07/30/25 09:06 Non-Smoker Yes 07/30/25 09:06 Duration of Surgery greater No 07/30/25 09:06 than 60 minutes Number of Risk Factors 3 07/30/25 09:06 PONV Score Moderate Risk 07/30/25 09:06 Height Weight Height Weight: Anesthesia: Height Weight Height 5 ft 4 in 06/30/25 15:53 Respiratory Assessment Respiratory Assessment - twisting machine operator: Respiratory Tract Infection Hx - twisting machine operator Hx Respiratory Tract Infection No 07/30/25 09:06 STOP Sleep Apnea STOP Sleep Apnea - twisting machine operator: STOP Sleep Apnea - twisting machine operator Hx Hypertension No 07/30/25 09:06 Hx Sleep Apnea No 07/30/25 09:06 CPAP BIPAP Do you snore loudly (louder No 07/30/25 09:06 than talking or can be heard Do you often feel tired/ No 07/30/25 09:06 fatigued/ sleepy during daytime? Has anyone observed you stop No 07/30/25 09:06 breathing during sleep? STOP Results Negative 07/30/25 09:06 QUESTION #5 FULL TEXT : Do you snore loudly (louder than talking or can be heard through closed doors)? 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 Specify any problems Hx of Preganancy in last 3 No 07/30/25 09:06 Months Nurse Filling Out Transfusion DSCHRIBER 07/30/25 09:06 Questions: Date: 07/30/25 07/30/25 09:06 Time: 09:08 07/30/25 09:06 Patient unable to answer at this time (ie. 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: /Reproductiv e Hx- twisting machine operator Hx Now No 07/30/25 09:06 Gestational Age (in weeks): EDC: Hx Hx Para Hx Section SAB No 07/30/25 09:06 [facility] Medical History (Updated 07/30/25 @ 09:14 by Idalia Cartagena) Wears contact lenses Post-menopausal Dietary restriction Gastric reflux Non-smoker Leg cramps History of Holter monitoring History of echocardiogram History of stress test Cardiology follow-up encounter History of irregular heartbeat Non-ischemic cardiomyopathy Type 2 diabetes mellitus Hypothyroidism Obesity Nonsustained paroxysmal ventricular tachycardia Home Medications ???Medication ???Instructions ???Recorded ???Last Taken ???Type levothyroxine 25 mcg tablet 25 mcg PO DAILY 01/12/22 Unknown H istory metformin 500 mg tablet,extended 1,500 mg PO QAM 01/12/22 04/06/22 History release 24 hr spironolactone 50 mg tablet 50 mg PO DAILY 01/12/22 Unknown Hi story omega-3 fatty acids 1,000 mg 1,000 mg PO DAILY 04/03/24 Unknown History capsule metoprolol succinate 25 mg 25 mg PO QHS #90 tabs 11/11/24 Unk nown Rx tablet,extended release 24 hr cholecalciferol (vitam (more content not included)... Normal [facility] Type AND Screen - PAT MERYon 08-01-2025 ABO and Rh group Nom (Bld) Blood group A Rh(D) positive Normal [facility] Comment on above: Order Comment: Surge ry Date: 08/08/25Reason for Laboratory Test [id number] D C Performed By: #### L [id number], [id number] #### [facility] Laboratory [address] [place], [place], [address] Estradiolon 06-30-2025 ESTRADIOL 47.5 pg/mL Normal [facility] Comment on above: Result Comment: FEMA LES ADULT FEMALE: Premenopausal: 15-350 pg/mL(E2 levels vary widely through the menstrual cycle) Postmenopausal: <10 pg/mL AMISH STAGES MEAN AGE REFERENCE RANGES Stage I(>14 days and prepubertal) 7.1 years Undetectable-20 pg/mLL Stage II 10.5 years Undetectable-24 pg/mL Stage III 11.6 years Undetectable-60 pg/mL Stage IV 12.3 years 15-85 pg/mL Stage V 14.5 years 15-350 pg/mL Puberty onset (transition from Amish stage I to Amish stage II) occurs for girls at a median age of 10.5 (/- 2) years. There is evidence that it may occur up to 1 year earlier in obese girls and in girls. Progression through Amish stages is variable. Amish stage V (adult) should be reached by age 18. Performed By: #### L [id number], [id number] #### [facility] Laboratory [address] [place], [place], [address] FSH and LHon 06-30-2025 FSH 10.6 mIU/mL Normal [facility] Comment on above: Result Comment: FEMA LE: Follicular: 1.4 - 18.1 mIU/mL Midcycle: 3.4 - 33.4 mIU/mL Luteal: 1.5 - 9.1 mIU/mL Post Menopause: 23.0 - 116.3 mIU/mL MALE: 1.4 - 18.1 mIU/mL Performed By: #### L [id number], [id number] #### [facility] [address] [place], [place], [address] LH 6.3 mIU/mL Normal [facility] Comment on above: Result Comment: FEMA LE: Follicular: 1.9-12.5 mIU/mL Midcycle: 8.7-76.3 mIU/mL Luteal: 0.5-16.9 mIU/mL Post Menopause: 15.9-54.0 mIU/mL MALE: 20-70 Years: 1.5-9.3 mIU/mL >70 Years: 3.1-34.6 mIU/mL Performed By: #### L [id number], [id number] #### [facility] [address] [place], [address] LH ser/plasOrdered By: Marie Anne on 06-30-2025 Lutropin Qn 6.3 m[IU]/mL [facility] Comment on above: FEMALE:Follicular: 1 .9-12.5 mIU/mLMidcycle: 8.7-76.3 mIU/mLLuteal: 0.5-16.9 mIU/mLPost Menopause: 15.9-54.0 mIU/mLMALE:20-70 Years: 1.5-9.3 mIU/mL>70 Years: 3.1-34.6 mIU/mL Director [facility] Office Visit Reporton 06-30-2025 Director [facility] Office Visit Report [facility] [address], [address] [place] [address] OFFICE VISIT Date of Service: 06/30/25 MR#: [id number] Acct: [id number] Name: TAYLOR VAZQUEZ Rep #: [id number] : 1965 Provider: Dr. Fabiola Moran DO Age/Sex: 60/F Location: [facility] [place] Status: Signed Intake Vital Signs 06/04/25 08:26 06/30/25 15:51 06/30/25 15:53 Height 5 ft 4 in 5 ft 4 in 5 ft 4 in Weight: 220 lb 8 oz BMI 37.8 BP 147/92 H Intake Visit Reasons: Surgical Consult Magnetic Doctor Required: No Is patient in pain?: No Allergies erythromycin base Allergy (Intermediate, Verified 06/30/25 15:50) hives Medications ???Medication ???Instructions ???Recorded ???Confirmed ???Type levothyroxine 25 mcg tablet 25 mcg PO DAILY 01/12/22 06/30/25 History metformin 500 mg tablet,extended 1,500 mg PO QAM 01/12/22 06/30/25 History release 24 hr spironolactone 50 mg tablet 50 mg PO DAILY 01/12/22 06/30/25 H istory omega-3 fatty acids 1,000 mg 1,000 mg PO DAILY 04/03/24 5 History capsule omeprazole 40 mg capsule,delayed 40 mg PO QDAY 09/09/24 06/30/25 Hi story release metoprolol succinate 25 mg 25 mg PO QHS #90 tabs 11/11/24 Rx tablet,extended release 24 hr cholecalciferol (vitamin D3) 25 25 mcg PO QDAY 02/26/25 06/30/25 H istory mcg (1,000 unit) tablet magnesium oxide mg PO QPM 02/26/25 06/30/25 Histor y Post menopausal: No Patient : No : No [facility] Medical History Simple cyst of breast Non-ischemic cardiomyopathy Type 2 diabetes mellitus Hypothyroidism Obesity Nonsustained paroxysmal ventricular tachycardia Surgical History S/P Family History Grandmother Arthritis Sister Bleeding disorder Father Diabetes Heart disease Hypertension High cholesterol Brother CVA (cerebral vascular accident) Social History adopted: No household members: family housing: house [...] physical activity do you participate in: none shakir/latter day: Religion seatbelt use: always do you feel safe at home: Yes additional social history: - Robin MACY Surgical Consult Details: The patient is a 60-year-old female presenting with uterine abnormalities identified during an ultrasound. The ultrasound revealed a slightly enlarged uterus measuring 10.6 cm, with a 2.7 x 2.5 x 1.8 cm fundal fibroid and possible polyps at the cervical-uterine junction. The patient reports intermittent cramping and back pain associated with bleeding episodes, which occur every three to six months. The patient has not experienced a full year without bleeding, indicating ongoing menstrual activity or postmenopausal bleeding. 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 ultrasound: FINDINGS: Measurements: Uterus: 10.6 cm x 7.4 cm x 5.7 cm with a volume of 232.78 mL Endometrial Thickness: 9 mm. It is hyperechoic. Right Ovary: Not visualized. Left Ovary: Not visualized. Uterus: Enlarged fibroid uterus. Heterogeneous echotexture. There is a 2.7 cm 2.5 cm 1.8 cm fundal fibroid. To hypoechoic nodule is seen in the cervix. The largest measures 1 cm x 1.4 cm 0.8 cm. These may represent polyps. Endometrium: 9 mm. Right ovary: Normal size and echotexture. Left ovary: Normal size and echotexture. Other: No large pelvic mass identified. US/Transvaginal Non- IMPRESSION: Enlarged fibroid uterus. Possible endometrial polyps in the cervical region. ROS Const ROS Unobtainable: All systems reviewed are unremarkable except as noted in H Resp Resp: Reports system reviewed and no additional complaints, except as documented; Denies cough GI GI: Reports as per HPI Psych Psych: Reports system reviewed and no additional complaints, except as documented Exam Const General: cooperative, healthy appearing, comfortable and no acute distress Resp Effort Inspection: normal respiratory effort Skin General: no rashes or lesions note (more content not included)... Normal [facility] Serum or plasma estradiol me asurement after follitropin dose (mass/volume)Ordered By: Fabiola Anne on 06-30-2025 E2 post dose follitropin [Mass/Vol] 47.5 pg/mL [facility] Comment on above: FEMALES ADULT FEMALE : Premenopausal: 15-350 pg/mL(E2 levels vary widely through the menstrual cycle) Postmenopausal: <10 pg/mL AMISH STAGES MEAN AGE REFERENCE RANGES Stage I(>14 days and prepubertal) 7.1 years Undetectable-20 pg/mLL Stage II 10.5 years Undetectable-24 pg/mL Stage III 11.6 years Undetectable-60 pg/mL Stage IV 12.3 years 15-85 pg/mL Stage V 14.5 years 15-350 pg/mL Puberty onset (transition from Amish stage I to Amish stage II) occurs for girls at a median age of 10.5 (/- 2) years. There is evidence that it may occur up to 1 year earlier in obese girls and in girls.Progression through Amish stages is variable. Amish stage V (adult) should be reached by age 18. AST(SGOT)on 06-27-2025 AST [Catalytic activity/Vol] 18 U/L Normal <=31 [facility] Comment on above: Performed By: #### L 3300.1750, L3100.5055 #### [facility] Laboratory [address] [place], [address] Alanine Aminotransferas (SGP T)on 06-27-2025 ALT [Catalytic activity/Vol] 17 U/L Normal <=34 [facility] Comment on above: Performed By: #### L 3300.1750, [id number] #### [facility] Laboratory [address] [place], [address] Anion gap in Serum or Plasma Ordered By: Katelyn Galicia on 06-27-2025 Anion gap [Moles/Vol] 13 mmol/L 03-27 [facility] BUN/creatinine ratioOrdered By: Katelyn Galicia on 06-27-2025 Urea nitrogen/Creatinine [Mass ratio] 25.2 mg/mg High 09-01 [facility] Basic Metabolic Profile (BMP )on 06-27-2025 BUN/CRE 25.2 RATIO High [facility] Comment on above: Performed By: #### L 3300.1750, [id number] #### [facility] Laboratory [address] [place], [address] Calcium [Mass/Vol] 9.4 mg/dL Normal 7.6-11.0 [facility] Comment on above: Performed By: #### L 3300.1750, [id number] #### [facility] Laboratory [address] [place], [address] Chloride [Moles/Vol] 100 mmol/L Normal 98-108 [facility] Comment on above: Performed By: #### L 3300.1750, [id number] #### [facility] Laboratory [address] [place], [address] CO2 [Moles/Vol] 23.9 mmol/L Normal 21.0-32.0 [facility] Comment on above: Performed By: #### L 3300.1750, [id number] #### [facility] Laboratory [address] [place], [address] Creatinine [Mass/Vol] 0.73 mg/dL Normal 0.70-1.20 [facility] Comment on above: Performed By: #### L 3300.1750, [id number] #### [facility] Laboratory [address] [place], [address] GAP 13 Normal 5-15 [facility] Comment on above: Performed By: #### L 3300.1750, [id number] #### [facility] Laboratory [address] [place], [address] GFR/1.73 sq M.predicted among non-blacks MDRD (S/P/Bld) [Vol rate/Area] 95 mL/min/{1.73_m2} Normal >60 [facility] Comment on above: Result Comment: mL/m in/1.73m2 CKD-EPI Creatinine Equation (2020) Performed By: #### L 3300.1750, [id number] #### [facility] Laboratory [address] [place], [address] Glucose [Mass/Vol] 86 mg/dL Normal 70-99 [facility] Comment on above: Performed By: #### L 3300.1750, [id number] #### [facility] Laboratory [address] [place], [address] Potassium [Moles/Vol] 4.7 mmol/L Normal 3.3-5.1 [facility] Comment on above: Performed By: #### L 3300.1750, [id number] #### [facility] Laboratory [address] [place], [address] Sodium [Moles/Vol] 137 mmol/L Normal 133-145 [facility] Comment on above: Performed By: #### L 3300.1750, [id number] #### [facility] Laboratory [address] [place], [address] Urea nitrogen [Mass/Vol] 19 mg/dL Normal 4-19 [facility] Comment on above: Performed By: #### L 3300.1750, [id number] #### [facility] Laboratory [address] [place], [address] Calculated very low density lipoprotein (VLDL) cholesterol measurementOrdered By: Katelyn Galicia on 06-27-2025 Calculated very low density lipoprotein (VLDL) cholesterol measurement 22 mg/dL 5-40 [facility] Carbon dioxide, total [Moles /volume] in Central venous bloodOrdered By: Katelyn Galicia on 06-27-2025 CO2 [Moles/Vol] 23.9 mmol/L 21.0-32.0 [facility] Chloride assayOrdered By: Dani Galicia on 06-27-2025 Chloride [Moles/Vol] 100 mmol/L 98-108 [facility] Glomerular filtration rate ( GFR) estimation/1.73 sq m using serum, plasma, or whole bOrdered By: Katelyn Galicia on 06-27-2025 GFR/1.73 sq M.predicted among non-blacks MDRD (S/P/Bld) [Vol rate/Area] 95 mL/min/{1.73_m2} >60 [facility] Comment on above: mL/min/1.73m2 CKD-EP I Creatinine Equation (2020) Hemoglobin A1con 06-27-2025 HbA1c (Bld) [Mass fraction] 5.8 % High <=5.6 [facility] Comment on above: Result Comment: Norm al < 5.7 % Prediabetic 5.7 - 6.4 % Diabetic >or= 6.5 % Please note range changes. Performed By: #### L 3300.1750, [id number] #### [facility] Laboratory [address] [place], [place], [address] Hemoglobin A1c percentageOrd ered By: Katelyn Galicia on 06-27-2025 HbA1c (Bld) [Mass fraction] 5.8 % High <5.7 [facility] Comment on above: Normal < 5.7 % Predi abetic 5.7 - 6.4 % Diabetic >or= 6.5 % Please note range changes. LDL calc ser/plasOrdered By: Katelyn Galicia on 06-27-2025 Cholesterol in LDL [Mass/Vol] 123 mg/dL [facility] Comment on above: Oseeexnffs=586-899 m g/dL & Higher Meyx=751 mg/dL or greaterFriedwald Equation for LDL-C Laboratory - Chemistry and C hemistry - challengeOrdered By: Katelyn Galicia on 06-27-2025 AST [Catalytic activity/Vol] 18 U/L <32 [facility] Lipid Profileon 06-27-2025 CHOL:HDL 4.01 Normal [facility] Comment on above: Performed By: #### L 3300.1750, [id number] #### [facility] Laboratory [address] [place], [place], [address] Cholesterol [Mass/Vol] 193 mg/dL Normal <=200 [facility] Comment on above: Result Comment: Chol esterol level, Desirable <200 mg/dL Borderline high cholesterol 200-239 mg/dL High cholesterol >=240 mg/dL Recommendations of the NCEP Adult Treatment Panel for the following risk-cutoff thresholds for the [place]uv[place] population. Performed By: #### L 3300.1750, [id number] #### [facility] Laboratory [address] [place], [address] Cholesterol in HDL [Mass/Vol] 48 mg/dL Normal [facility] Comment on above: Result Comment: Sandy onal Cholesterol Education Program (NCEP) guidelines: <40 mg/dL: Low HDL-cholesterol (major risk factor for CHD) >= 60 mg/dL: High HDL-cholesterol (negative risk factor for CHD) HDL-cholesterol is affected by a number of factors, e.g. smoking, exercise, hormones, sex and age. Performed By: #### L 3300.1750, [id number] #### [facility] Laboratory [address] [place], [address] Cholesterol in LDL [Mass/Vol] 123 mg/dL Normal [facility] Comment on above: Result Comment: Bord utjmec=045-458 mg/dL Higher Gszy=450 mg/dL or greater Friedwald Equation for LDL-C Performed By: #### L 3300.1750, [id number] #### [facility] Laboratory [address] [place], [address] Cholesterol in VLDL [Mass/Vol] 22 mg/dL Normal 5-40 [facility] Comment on above: Performed By: #### L 3300.1750, [id number] #### [facility] Laboratory [address] [place], [address] Triglyceride [Mass/Vol] 110 mg/dL Normal [facility] Comment on above: Result Comment: The drugs N-Acetylcysteine and Metamizole may falsely depress this assay. Normal range: <150 mg/dL Borderline High: 150-199 mg/dL High: 200-499 mg/dL Very High: >500 mg/dL Performed By: #### L 3300.1750, [id number] #### [facility] Laboratory [address] [place], [address] Potassium measurement (mass/ volume)Ordered By: Katelyn Galicia on 06-27-2025 Potassium (Unsp spec) [Mass/Vol] 4.7 mmol/L 3.3-5.1 [facility] Screening total cholesterol/ high density lipoprotein (HDL) cholesterol ratioOrdered By: Katelyn Galicia on 06-27-2025 Cholesterol.total/Choles terol in HDL [Mass ratio] 4.01 {ratio} [facility] Serum creatinine measurement (mass/volume)Ordered By: Katelyn Galicia on 06-27-2025 Creatinine [Mass/Vol] 0.73 mg/dL 0.70-1.20 [facility] Serum glucose measurement (m ass/volume)Ordered By: Katelyn Galicia on 06-27-2025 Glucose [Mass/Vol] 86 mg/dL 70-99 [facility] Serum or plasma alanine whittington otransferase (ALT) measurementOrdered By: Katelyn Galicia on 06-27-2025 ALT [Catalytic activity/Vol] 17 U/L <35 [facility] Serum or plasma calcium kecia urement (mass/volume)Ordered By: Katelyn Galicia on 06-27-2025 Calcium [Mass/Vol] 9.4 mg/dL 7.6-11.0 [facility] Serum or plasma cholesterol in HDL measurement (mass/volume)Ordered By: Kateyln Galicia on 06-27-2025 Cholesterol in HDL [Mass/Vol] 48 mg/dL >40 [facility] Comment on above: National Cholesterol Education Program (NCEP) guidelines:<40 mg/dL: Low HDL-cholesterol (major risk factor for CHD)>= 60 mg/dL: High HDL-cholesterol (negative risk factor for CHD)HDL-cholesterol is affected by a number of factors, e.g. smoking, exercise, hormones, sex and age. Serum or plasma cholesterol measurement (mass/volume)Ordered By: Katelyn Galicia on 06-27-2025 Cholesterol [Mass/Vol] 193 mg/dL <201 [facility] Comment on above: Cholesterol level, D esirable <200 mg/dLBorderline high cholesterol 200-239 mg/dLHigh cholesterol >=240 mg/dLRecommendations of the NCEP Adult Treatment Panel for the following risk-cutoff thresholds for the [place] population. Serum or plasma urea nitroge n measurement (mass/volume)Ordered By: Katelyn Galicia on 06-27-2025 Urea nitrogen [Mass/Vol] 19 mg/dL 4-19 [facility] Sodium levelOrdered By: Kole Galicia on 06-27-2025 Sodium [Moles/Vol] 137 mmol/L 133-145 [facility] T4 Free Directon 06-27-2025 T4 FREE DIRECT 1.00 ng/dL Normal 0.76-1.46 [facility] Comment on above: Performed By: #### L 3300.1750, [id number] #### [facility] Laboratory [address] [place], [place], [address] T4 freeOrdered By: Katelyn johnson on 06-27-2025 Free T4 [Mass/Vol] 1.00 ng/dL 0.76-1.46 [facility] TSH DL <= 0.005 mIU/L QnOrde red By: Katelyn Galicia on 06-27-2025 TSH Qn 2.020 uIU/mL 0.300-4.200 [facility] Thyroid Stim Hormone (TSH)on 06-27-2025 TSH 2.020 uIU/mL Normal 0.300-4.200 [facility] Comment on above: Performed By: #### L 3300.1750, [id number] #### [facility] Laboratory [address] [place], [place], [address] Triglycerides measurementOrd ered By: Katelyn Galicia on 06-27-2025 Triglyceride [Mass/Vol] 110 mg/dL <199 [facility] Comment on above: The drugs N-Acetylcy steine and Metamizole may falsely depress this assay. Normal range: <150 mg/dLBorderline High: 150-199 mg/dLHigh: 200-499 mg/dLVery High: >500 mg/dL Breast imaging reportOrdered By: Evelyn Moeller on 06-13-2025 Study report [facility] Imaging Services [address] [place], [place] [address] SCRN MAMM (CAD)W/MARIO ALBERTO BILAT MR#: [id number] Acct: [id number] Name: TAYLOR VAZQUEZ Rep #: [id number] : 1965 F 60 From: Margot Moeller MD PCP: Dr. Alessia Herr MD Status: REG CLI Study:SCRN MAMM (CAD)W/MARIO ALBERTO BILAT Date of Exa m: 06/13/25 Exam# [id number] Ordering Dr: Ellie Perdomo CNM EXAM: SCRN MAMM (CAD)W/MARIO ALBERTO BILAT DATE: 06/13/2025 CLINICAL HISTORY: F, Age 60 y/o , ANNUAL TECHNIQUE: SCRN MAMM (CAD)W/MARIO ALBERTO BILAT COMPARISON: Prior exam(s) dated 10/05/2021, 09/04/2020, 08/02/2019. FINDINGS: TISSUE DENSITY: The breasts are heterogeneously dense, which may obscure small masses. The mammogram demonstrates that the patient has dense breasts. Supplemental screening with whole breast ultrasound or MRI may be considered for further evaluation. Bilateral Breast Mammographic Findings: No significant masses, calcifications or other abnormalities are identified. BI/SCRN MAMM (CAD)W/MARIO ALBERTO BILAT IMPRESSION: There is no mammographic evidence of malignancy. OVERALL FINAL ASSESSMENT BI-RADS 1: NEGATIVE. RECOMMENDATION: Routine annual follow-up in 1 Year A letter with findings and recommendations will be mailed to the patient. Reading Location: [facility] CC: JESSE Perdomo; Dr. Alessia Herr MD ~ Division Director: Signed [facility] SCRN MAMM (CAD)W/MARIO ALBERTO BILATo n 06-13-2025 SCRN MAMM (CAD)W/MARIO ALBERTO BILAT [facility] Imaging Services [address] [place] [address] SCRN MAMM (CAD)W/MARIO ALBERTO BILAT MR#: [id number] Acct: [id number] Name: TAYLOR VAZQUEZ Rep #: [id number] : 1965 F 60 From: Evelyn Moeller MD PCP: Dr. Alessia Herr MD Status: REG CLI Study: SCRN MAMM (CAD)W/MARIO ALBERTO BILAT Date of Exam: 12/07 Exam# [id number] Ordering Dr: Ellie Perdomo CNM EXAM: SCRN MAMM (CAD)W/MARIO ALBERTO BILAT DATE: 06/13/2025 CLINICAL HISTORY: F, Age 60 y/o , ANNUAL TECHNIQUE: SCRN MAMM (CAD)W/MARIO ALBERTO BILAT COMPARISON: Prior exam(s) dated 10/05/2021, 09/04/2020, 08/02/2019. FINDINGS: TISSUE DENSITY: The breasts are heterogeneously dense, which may obscure small masses. The mammogram demonstrates that the patient has dense breasts. Supplemental screening with whole breast ultrasound or MRI may be considered for further evaluation. Bilateral Breast Mammographic Findings: No significant masses, calcifications or other abnormalities are identified. BI/SCRN MAMM (CAD)W/MARIO ALBERTO BILAT IMPRESSION: There is no mammographic evidence of malignancy. OVERALL FINAL ASSESSMENT BI-RADS 1: NEGATIVE. RECOMMENDATION: Routine annual follow-up in 1 Year A letter with findings and recommendations will be mailed to the patient. Reading Location: [facility] CC: JESSE Perdomo; Dr. Alessia Herr MD Division Director: Signed Normal [facility] Transvaginal Non-on 06-13-2025 Transvaginal Non- [facility] Imaging Services [address] [place] [id number] Transvaginal Non- MR#: [id number] Acct: [id number] Name: TAYLOR VAZQUEZ Rep #: [id number] : 1965 F 60 From: Kevin gale MD PCP: Dr. Alessia Herr MD Status: REG CLI Study: Transvaginal Non- Date of Exam: Exam# [id number] Ordering Dr: Ellie Perdomo CNM PROCEDURE: TRANSVAGINAL NON- 06/13/2025 REASON FOR EXAM: ABNORMAL UTERINE BLEEDING Occasional spotting. Patient is perimenopausal. TECHNIQUE: TRANSVAGINAL NON- COMPARISON: None FINDINGS: Measurements: Uterus: 10.6 cm x 7.4 cm x 5.7 cm with a volume of 232.78 mL Endometrial Thickness: 9 mm. It is hyperechoic. Right Ovary: Not visualized. Left Ovary: Not visualized. Uterus: Enlarged fibroid uterus. Heterogeneous echotexture. There is a 2.7 cm 2.5 cm 1.8 cm fundal fibroid. To hypoechoic nodule is seen in the cervix. The largest measures 1 cm x 1.4 cm 0.8 cm. These may represent polyps. Endometrium: 9 mm. Right ovary: Normal size and echotexture. Left ovary: Normal size and echotexture. Other: No large pelvic mass identified. US/Transvaginal Non- IMPRESSION: Enlarged fibroid uterus. Possible endometrial polyps in the cervical region. Reading Location: [id number] CC: JESSE Perdomo; Dr. Alessia Herr MD Division Director: Signed Normal [facility] PAP IG HPV APTIMA 16/18,45on 06-09-2025 ADEQ Comment Normal . [facility] Comment on above: Order Comment: Speci men Comment: [id number] Comment: Source.............CervixSpecimen Comment: No. of containers..01 ThinPrep Vial Result Comment: Sati sfactory for evaluation. Endocervical and/or squamous metaplastic cells (endocervical component) are present. Performed By: #### L 3300.1750, L3100.5055 #### [facility] Laboratory [address] [place], [address] COMM . Normal . [facility] Comment on above: Order Comment: Speci men Comment: [id number] Comment: Source.............CervixSpecimen Comment: No. of containers..01 ThinPrep Vial Performed By: #### L 3300.1750, L3100.5055 #### [facility] Laboratory [address] [place], [address] COMMENT Comment Normal . [facility] Comment on above: Order Comment: Speci men Comment: [id number] Comment: Source.............CervixSpecimen Comment: No. of containers..01 ThinPrep Vial Result Comment: This liquid based ThinPrep(R) pap test was screened with the use of an image guided system. Performed By: #### L 3300.1750, L3100.5055 #### [facility] Laboratory [address] [place], [place], [address] DIAG Comment Normal . [facility] Comment on above: Order Comment: Speci men Comment: [id number] Comment: Source.............CervixSpecimen Comment: No. of containers..01 ThinPrep Vial Result Comment: NEGA TIVE FOR INTRAEPITHELIAL LESION OR MALIGNANCY. Performed By: #### L 3300.1750, L3100.5055 #### [facility] Laboratory [address] [place], [place], [id number] HPV APTIMA, HR Negative Normal Negative [facility] Comment on above: Order Comment: Speci men Comment: [id number] Comment: Source.............CervixSpecimen Comment: No. of containers..01 ThinPrep Vial Result Comment: This nucleic acid amplification test detects fourteen high- risk HPV types (16,18,31,33,35,39,45,51,52,56,58,59,66,68) without differentiation. Performed By: #### L 3300.1750, L3100.5055 #### [facility] Laboratory [address] [place], [address] HPV Rosanne Rfx Comment Normal . [facility] Comment on above: Order Comment: Speci men Comment: [id number] Comment: Source.............CervixSpecimen Comment: No. of containers..01 ThinPrep Vial Result Comment: Crit eria not met, HPV Genotype not performed. Performed at: - [facility] [id number] Director Intelligence Analysis Programs: Trina Apple MD, Phone: [phone] Performed at: = - [facility] [id number] Director Intelligence Analysis Programs: Trina Apple MD, Phone: [phone] Performed By: #### L 3300.1750, [id number] #### [facility] Laboratory [address] [place], [address] PAPSMR Comment Normal . [facility] Comment on above: Order Comment: Speci men Comment: [id number] Comment: Source.............CervixSpecimen Comment: No. of containers..01 ThinPrep Vial Result Comment: The Pap smear is a screening test designed to aid in the detection of premalignant and malignant conditions of the uterine cervix. It is not a diagnostic procedure and should not be used as the sole means of detecting cervical cancer. Both false-positive and false-negative reports do occur. Performed By: #### L 3300.1750, L3100.5055 #### [facility] Laboratory [address] [place], [address] PERFORM Comment Normal . [facility] Comment on above: Order Comment: Speci men Comment: [id number] Comment: Source.............CervixSpecimen Comment: No. of containers..01 ThinPrep Vial Result Comment: Aneudy Mckeon, Heavy Equipment Service Manager Performed By: #### L 3300.1750, L3100.5055 #### [facility] [address] [place], [place], [id number] Cervical or vaginal specimen microscopic examination by liquid based cytology (reportOrdered By: Ellie Perdomo on 06-04-2025 Cytology report Cyto stain.thin prep Doc (Cvx/Vag) Comment . [facility] Comment on above: Criteria not met, HP V Genotype not performed.Performed at: - [facility] [id number] Director: Trina Apple MD, Phone: [phone] at: = - [facility] [id number] Director: Trina Apple MD, Phone: [phone] Cervical or vagninal specime n microscopic examination by cytology stain (reported asOrdered By: Ellie Perdomo on 06-04-2025 Cytology report Cyto stain Doc (Cvx/Vag) Comment . [facility] Comment on above: The Pap smear is [...] DNA Probe+sig amp Ql (Cvx) Negative Negative [facility] Comment on above: This nucleic acid am plification test detects fourteen high-risk HPV types (16,18,31,33,35,39,45,51,52,56,58,59,66,68)without differentiation. Laboratory - CytologyOrdered By: Ellie Perdomo on 06-04-2025 Heavy Equipment Service Manager Cyto stain Nom (Cvx/Vag) [ID] Comment . [facility] Comment on above: [facility] Laboratory - Miscellaneous t estsOrdered By: Ellie Perdomo on 06-04-2025 Service comment (Unsp spec) [Interp] . . [facility] No Panel InformationOrdered By: Ellie Perdomo on 06-04-2025 Pap Smear Specimen Adequacy Comment . [facility] Comment on above: Satisfactory for erica luation. Endocervical and/or squamous metaplasticcells (endocervical component) are present. Director [facility] Office Visit Reporton 06-04-2025 Director [facility] Office Visit Report [facility] [address], [address] [place] [address] OFFICE VISIT Date of Service: 06/04/25 MR#: [id number] Acct: [id number] Name: TAYLOR VAZQUEZ Rep #: [id number] : 1965 Provider: JESSE Knapp ams Age/Sex: 60/F Location: [facility] Status: Signed Intake Vital Signs 09/09/24 08:33 02/26/25 14:49 06/04/25 08:21 06/04/25 08:26 Height 5 ft 4 in 5 ft 4 in 5 ft 4 in 5 ft 4 in Weight: 220 lb 233 lb BMI 37.8 39.9 BP 116/67 109/71 Blood Pressure Location Lt brachial Lt brachial Position Sitting Sitting Respiration 16 Pulse 77 Pulse Source NIBP 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 Normal [facility] Cardiology Visit Reporton Cardiology Visit Report [facility] [address] [place] [address] OFFICE VISIT Date of Service: 02/26/25 MR#: [id number] Acct: [id number] Name: TAYLOR VAZQUEZ Rep #: [id number] : 1965 Provider: RAZ Rico Age/Sex: 60/F Location: [facility] Status: Signed HPI HPI History of Present Illness Details: Taylor Vazquez is a 60 year-old lady with [...] coronary calcium score in April 2024 at [facility]. Her total score was 9.76. pt did start Mg+ and metoprolol at night. These seemed to have helped with her HR. Intake Vital Signs 09/09/24 08:33 02/26/25 14:49 Height 5 ft 4 in 5 ft 4 in Weight: 220 lb BMI 37.8 BP 116/67 Blood Pressure Location Lt brachial Position Sitting Respiration 16 Pulse 77 Pulse Source NIBP Intake Visit Reasons: 4 M FU Magnetic Doctor Required: No Is patient in pain?: No [...] Flow Screening on 02/21/25. Asking about results. [facility] Medical History Non-ischemic cardiomyopathy Type 2 diabetes [...] and nevin (more content not included)... Normal [facility] Anion gap in Serum or Plasma Ordered By: Candelaria Grissom on 01-24-2025 Anion gap [Moles/Vol] 17 mmol/L High 03-27 [facility] BUN/creatinine ratioOrdered By: Candelaria Grissom on 01-24-2025 Urea nitrogen/Creatinine [Mass ratio] 15.0 mg/mg 09-01 [facility] Basic Metabolic Profile (BMP )on 01-24-2025 BUN/CRE 15.0 RATIO Normal 09-01 [facility] Comment on above: Performed By: #### L 501.5457, L500.2500, L501.5200, L100.0500 #### [facility] [address] [place], [address] Calcium [Mass/Vol] 9.5 mg/dL Normal 7.6-11.0 [facility] Comment on above: Performed By: #### L 501.9520, L500.2500, L501.5200, L100.0500 #### [facility] [address] [place], [address] Chloride [Moles/Vol] 98 mmol/L Normal 98-108 [facility] Comment on above: Performed By: #### L 501.9520, L500.2500, L501.5200, L100.0500 #### [facility] [address] [place], [address] CO2 [Moles/Vol] 20.0 mmol/L Low 21.0-32.0 [facility] Comment on above: Performed By: #### L 501.9520, L500.2500, L501.5200, L100.0500 #### [facility] [address] [place], [address] Creatinine [Mass/Vol] 0.81 mg/dL Normal 0.70-1.20 [facility] Comment on above: Performed By: #### L 501.9520, L500.2500, L501.5200, L100.0500 #### [facility] [address] [place], [address] GAP 17 High 5-15 [facility] Comment on above: Performed By: #### L 501.9520, L500.2500, L501.5200, L100.0500 #### [facility] [address] [place], [address] GFR/1.73 sq M.predicted among non-blacks MDRD (S/P/Bld) [Vol rate/Area] 84 mL/min/{1.73_m2} Normal >60 [facility] Comment on above: Result Comment: mL/m in/1.73m2 CKD-EPI Creatinine Equation (2020) Performed By: #### L 501.9520, L500.2500, L501.5200, L100.0500 #### [facility] [address] [place], [address] Glucose [Mass/Vol] 171 mg/dL High 70-99 [facility] Comment on above: Performed By: #### L 501.9520, L500.2500, L501.5200, L100.0500 #### [facility] [address] [place], [address] Potassium [Moles/Vol] 3.8 mmol/L Normal 3.3-5.1 [facility] Comment on above: Performed By: #### L 501.9520, L500.2500, L501.5200, L100.0500 #### [facility] [address] [place], [address] Sodium [Moles/Vol] 134 mmol/L Normal 133-145 [facility] Comment on above: Performed By: #### L 501.9520, L500.2500, L501.5200, L100.0500 #### [facility] [address] [place], [address] Urea nitrogen [Mass/Vol] 12 mg/dL Normal 4-19 [facility] Comment on above: Performed By: #### L 501.9520, L500.2500, L501.5200, L100.0500 #### [facility] [address] [place], [address] CBC-Complete Blood Cnt No Di ffon 01-24-2025 Erythrocyte distribution width (RBC) [Ratio] 14.6 % Normal 11.6-14.6 [facility] Comment on above: Performed By: #### L 501.9520, L500.2500, L501.5200, L100.0500 #### [facility] [address] [place], [address] Hematocrit (Bld) [Volume fraction] 39.5 % Normal 37-47 [facility] Comment on above: Performed By: #### L 501.9520, L500.2500, L501.5200, L100.0500 #### [facility] [address] [place], [address] Hemoglobin (Bld) [Mass/Vol] 13.4 g/dL Normal 12.0-15.0 [facility] Comment on above: Performed By: #### L 501.9520, L500.2500, L501.5200, L100.0500 #### [facility] [address] [place], [address] MCH (RBC) [Entitic mass] 28.9 pg Normal 27.0-32.0 [facility] Comment on above: Performed By: #### L 501.9520, L500.2500, L501.5200, L100.0500 #### [facility] [address] [place], [address] MCHC (RBC) [Mass/Vol] 33.9 g/dL Normal 32-36 [facility] Comment on above: Performed By: #### L 501.9520, L500.2500, L501.5200, L100.0500 #### [facility] [address] [place], [address] MCV (RBC) [Entitic vol] 85.1 fL Normal 81-99 [facility] Comment on above: Performed By: #### L 501.9520, L500.2500, L501.5200, L100.0500 #### [facility] [address] [place], [address] Platelet mean volume (Bld) [Entitic vol] 10.0 fL Normal 6.2-12.0 [facility] Comment on above: Performed By: #### L 501.9520, L500.2500, L501.5200, L100.0500 #### [facility] [address] [place], [address] Platelets (Bld) [#/Vol] 239 10*3/uL Normal 150-450 [facility] Comment on above: Performed By: #### L 501.9520, L500.2500, L501.5200, L100.0500 #### [facility] [address] [place], [address] RBC (Bld) [#/Vol] 4.64 10*6/uL Normal 4.2-5.4 [facility] Comment on above: Performed By: #### L 501.9520, L500.2500, L501.5200, L100.0500 #### [facility] [address] [place], [address] RDW SD 45.7 fl High 35.1-43.9 [facility] Comment on above: Performed By: #### L 501.9520, L500.2500, L501.5200, L100.0500 #### [facility] [address] [place], [address] WBC (Bld) [#/Vol] 12.5 10*3/uL High 4.4-11.0 [facility] Comment on above: Performed By: #### L 501.9520, L500.2500, L501.5200, L100.0500 #### [facility] [address] [place], [address] Carbon dioxide, total [Moles /volume] in Central venous bloodOrdered By: Candelaria Grissom on 01-24-2025 CO2 [Moles/Vol] 20.0 mmol/L Low 21.0-32.0 [facility] Chloride assayOrdered By: Essie Grissom on 01-24-2025 Chloride [Moles/Vol] 98 mmol/L 98-108 [facility] Erythrocyte distribution wid th ratioOrdered By: Candelaria Grissom on 01-24-2025 Erythrocyte distribution width (RBC) [Ratio] 14.6 % 11.6-14.6 [facility] Erythrocyte distribution wid th standard deviationOrdered By: Candelaria Grissom on 01-24-2025 Erythrocyte distribution width (RBC) [Entitic vol] 45.7 fL High 35.1-43.9 [facility] GFR/1.73 sq M.predicted melo g non-blacks MDRD (S/P/Bld) [Vol rate/Area]Ordered By: Candelaria Grissom on 01-24-2025 Estimated GFR (MDRD) Non-Af Amer 84 >60 [facility] Comment on above: mL/min/1.73m2 CKD-EP I Creatinine Equation (2020) Hematocrit Auto (Bld) [Volum e fraction]Ordered By: Candelaria Grissom on 01-24-2025 Hematocrit (Bld) [Volume fraction] 39.5 % 37-47 [facility] Hemoglobin measurementOrdere d By: Candelaria Grissom on 01-24-2025 Hemoglobin (Bld) [Mass/Vol] 13.4 g/dL 12.0-15.0 [facility] MCV (mean corpuscular volume ) determinationOrdered By: Candelaria Grissom on 01-24-2025 MCV (RBC) [Entitic vol] 85.1 fL 81-99 [facility] Magnesiumon 01-24-2025 Magnesium [Mass/Vol] 2.1 mg/dL Normal 1.5-2.2 [facility] Comment on above: Performed By: #### L 501.9520, L500.2500, L501.5200, L100.0500 #### [facility] [address] [place] [address], [address] Magnesium (Unsp spec) [Mass/ Vol]Ordered By: Candelaria Grissom on 01-24-2025 Magnesium [Mass/Vol] 2.1 mg/dL 1.5-2.2 [facility] Mean corpuscular hemoglobin (MCH) determinationOrdered By: Candelaria Grissom on 01-24-2025 MCH (RBC) [Entitic mass] 28.9 pg 27.0-32.0 [facility] Mean corpuscular hemoglobin concentration (MCHC) determinationOrdered By: Candelaria Grissom on 01-24-2025 MCHC (RBC) [Mass/Vol] 33.9 g/dL 32-36 [facility] Mean platelet volume determi nationOrdered By: Candelaria Grissom on 01-24-2025 Platelet mean volume (Bld) [Entitic vol] 10.0 fL 6.2-12.0 [facility] Platelet countOrdered By: Essie Grissom on 01-24-2025 Platelets (Bld) [#/Vol] 239 10*3/uL 150-450 [facility] Potassium (Unsp spec) [Mass/ Vol]Ordered By: Candelaria Grissom on 01-24-2025 Potassium [Moles/Vol] 3.8 mmol/L 3.3-5.1 [facility] RBC Auto (Bld) [#/Vol]Ordere d By: Candelaria Grissom on 01-24-2025 RBC (Bld) [#/Vol] 4.64 10*6/uL 4.2-5.4 [facility] Serum creatinine measurement (mass/volume)Ordered By: Candelaria Grissom on 01-24-2025 Creatinine [Mass/Vol] 0.81 mg/dL 0.70-1.20 [facility] Serum glucose measurement (m ass/volume)Ordered By: Candelaria Grissom on 01-24-2025 Glucose [Mass/Vol] 171 mg/dL High 70-99 [facility] Serum or plasma calcium kecia urement (mass/volume)Ordered By: Candelaria Grissom on 01-24-2025 Calcium [Mass/Vol] 9.5 mg/dL 7.6-11.0 [facility] Serum or plasma urea nitroge n measurement (mass/volume)Ordered By: Candelaria Grissom on 01-24-2025 Urea nitrogen [Mass/Vol] 12 mg/dL 4-19 [facility] Sodium levelOrdered By: Jhoan Grissom on 01-24-2025 Sodium [Moles/Vol] 134 mmol/L 133-145 [facility] TSH DL <= 0.005 mIU/L QnOrde red By: Candelaria Grissom on 01-24-2025 Thyroid Stimulating Hormone (TSH) 1.400 uIU/mL 0.300-4.200 [facility] Thyroid Stim Hormone (TSH)on 01-24-2025 TSH 1.400 uIU/mL Normal 0.300-4.200 [facility] Comment on above: Performed By: #### L 501.9520, L500.2500, L501.5200, L100.0500 #### [facility] [address] [place], [address] White blood cell (WBC) count Ordered By: Candelaria Grissom on 01-24-2025 WBC (Bld) [#/Vol] 12.5 10*3/uL High 4.4-11.0 [facility] LDL, Directon 01-01-2025 Cholesterol in LDL [Mass/Vol] 131 mg/dL High 0-99 [facility] Comment on above: Result Comment: Perf ormed at: - [facility] [address] [id number] Director Intelligence Analysis Programs: Hector Foster PhD, Phone: [phone] Performed By: #### L 3300.1750, L3100.5055 #### [facility] [address] [place], [address] COMMENT TNP Normal . [facility] Comment on above: Performed By: #### L 3300.1750, L3100.5055 #### [facility] [address] [place], [address] AST(SGOT)on 12-31-2024 AST [Catalytic activity/Vol] 15 U/L Normal 15-37 [facility] Comment on above: Performed By: #### L 3300.1750, L3100.5055 #### [facility] [address] [place], [address] Alanine Aminotransferas (SGP T)on 12-31-2024 ALT [Catalytic activity/Vol] 23 U/L Normal 13-56 [facility] Comment on above: Performed By: #### L 3300.1750, L3100.5055 #### [facility] [address] [place], [address] Basic Metabolic Profile (BMP )on 12-31-2024 BUN/CRE 17.6 RATIO Normal 10-20 [facility] Comment on above: Performed By: #### L 500.4100, L501.9520, L501.4405, L500.2500, L501.9985, L501.4100, L3300.4490, L506.0400 #### [facility] [address] [place], [address] CA,Total 9.3 mg/dL Normal 8.5-10.1 [facility] Comment on above: Performed By: #### L 500.4100, L501.9520, L501.4405, L500.2500, L501.9985, L501.4100, L3300.4490, L506.0400 #### [facility] [address] [place], [address] Chloride [Moles/Vol] 104 mmol/L Normal 98-107 [facility] Comment on above: Performed By: #### L 500.4100, L501.9520, L501.4405, L500.2500, L501.9985, L501.4100, L3300.4490, L506.0400 #### [facility] [address] [place], [address] CO2 [Moles/Vol] 27.0 mmol/L Normal 21.0-32.0 [facility] Comment on above: Performed By: #### L 500.4100, L501.9520, L501.4405, L500.2500, L501.9985, L501.4100, L3300.4490, L506.0400 #### [facility] [address] [place], [address] Creatinine [Mass/Vol] 0.74 mg/dL Normal 0.55-1.02 [facility] Comment on above: Result Comment: The validity of the calculated GFR GFRAA in patients over 70 years has not been determined. Clinical correlation is essential. Performed By: #### L 500.4100, L501.9520, L501.4405, L500.2500, L501.9985, L501.4100, L3300.4490, L506.0400 #### [facility] [address] [place], [address] EST GFR - AA 104 mL/min Normal >60 [facility] Comment on above: Result Comment: Afri can Peruvian GFR Calc Performed By: #### L 500.4100, L501.9520, L501.4405, L500.2500, L501.9985, L501.4100, L3300.4490, L506.0400 #### [facility] [address] [place], [place], [id number] [phone]) GAP 8 Normal 5-15 [facility] Comment on above: Performed By: #### L 500.4100, L501.9520, L501.4405, L500.2500, L501.9985, L501.4100, L3300.4490, L506.0400 #### [facility] [address] [place], [address] GFR/1.73 sq M.predicted among non-blacks MDRD (S/P/Bld) [Vol rate/Area] 86 mL/min/{1.73_m2} Normal >60 [facility] Comment on above: Result Comment: Non- GFR Calc Performed By: #### L 500.4100, L501.9520, L501.4405, L500.2500, L501.9985, L501.4100, L3300.4490, L506.0400 #### [facility] [address] [place], [address] Glucose [Mass/Vol] 90 mg/dL Normal 74-106 [facility] Comment on above: Performed By: #### L 500.4100, L501.9520, L501.4405, L500.2500, L501.9985, L501.4100, L3300.4490, L506.0400 #### [facility] [address] [place], [address] Potassium [Moles/Vol] 4.5 mmol/L Normal 3.5-5.1 [facility] Comment on above: Performed By: #### L 500.4100, L501.9520, L501.4405, L500.2500, L501.9985, L501.4100, L3300.4490, L506.0400 #### [facility] [address] [place], [address] Sodium [Moles/Vol] 139 mmol/L Normal 136-145 [facility] Comment on above: Performed By: #### L 500.4100, L501.9520, L501.4405, L500.2500, L501.9985, L501.4100, L3300.4490, L506.0400 #### [facility] [address] [place], [place], [phone] Urea nitrogen [Mass/Vol] 13 mg/dL Normal 7-18 [facility] Comment on above: Performed By: #### L 500.4100, L501.9520, L501.4405, L500.2500, L501.9985, L501.4100, L3300.4490, L506.0400 #### [facility] [address] [place], [address] Blood urea nitrogen (BUN)/cr eatinine ratioOrdered By: Katelyn Galicia on 12-31-2024 Urea nitrogen/Creatinine [Mass ratio] 17.6 mg/mg 10-20 [facility] Carbon dioxide measurementOr dered By: Katelyn Galicia on 12-31-2024 CO2 [Moles/Vol] 27.0 mmol/L 21.0-32.0 [facility] Chloride measurementOrdered By: Katelyn Galicia on 12-31-2024 Chloride [Moles/Vol] 104 mmol/L 98-107 [facility] Cholesterol in LDL Direct as say [Mass/Vol]Ordered By: Katelyn Galicia on 12-31-2024 LDL Cholesterol Direct 131 mg/dL High 0-99 [facility] Comment on above: Performed at: [address] [id number] Director: Hector Foster PhD, Phone: [phone] Direct serum free thyroxine (FT4) measurementOrdered By: Katelyn Galicia on 12-31-2024 Free T4 [Mass/Vol] 0.93 ng/dL 0.76-1.46 [facility] Estimated glomerular filtrat ion rate (GFR) AmericanOrdered By: Katelyn Galicia on 12-31-2024 Estimated GFR (MDRD) Amer 104 mL/min >60 [facility] Comment on above: GFR Calc Glomerular filtration rate ( GFR) estimationOrdered By: Katelyn Galicia on 12-31-2024 Estimated GFR (MDRD) Non-Af Amer 86 mL/min >60 [facility] Comment on above: Non- GFR Calc Glucose measurementOrdered B y: Katelyn Galicia on 12-31-2024 Glucose [Mass/Vol] 90 mg/dL 74-106 [facility] Hemoglobin A1con 12-31-2024 HbA1c (Bld) [Mass fraction] 5.6 % Normal 3.8-5.6 [facility] Comment on above: Result Comment: Norm al < 5.7 % Prediabetic 5.7 - 6.4 % Diabetic >or= 6.5 % Please note range changes. Performed By: #### L 3300.1750, L3100.5055 #### [facility] [address] [place], [address] Hemoglobin A1c percentageOrd ered By: Katelyn Galicia on 12-31-2024 HbA1c (Bld) [Mass fraction] 5.6 % 3.8-5.6 [facility] Comment on above: Normal < 5.7 % Predi abetic 5.7 - 6.4 % Diabetic >or= 6.5 % Please note range changes. High density lipoprotein (HD L) measurementOrdered By: Katelyn Galicia on 12-31-2024 Cholesterol in HDL [Mass/Vol] 37 mg/dL Low >40 [facility] Comment on above: The drugs N-Acetylcy steine and Metamizole may falsely depress this assay. Reference Range HDL <40 mg/dL Low HDL Cholesterol HDL >or= 60 mg/dL High HDL Cholesterol Laboratory - Chemistry and C hemistry - challengeOrdered By: Katelyn Galicia on 12-31-2024 AST [Catalytic activity/Vol] 15 U/L 15-37 [facility] Lipid Profileon 12-31-2024 Cholesterol [Mass/Vol] 181 mg/dL Normal 200 [facility] Comment on above: Result Comment: <200 mg/dL Desirable 200-240 mg/dL Borderline >240 mg/dL High Risk Performed By: #### L 3300.1750, L3100.5055 #### [facility] [address] [place], [address] Cholesterol in HDL [Mass/Vol] 37 mg/dL Low [facility] Comment on above: Result Comment: The drugs N-Acetylcysteine and Metamizole may falsely depress this assay. Reference Range HDL <40 mg/dL Low HDL Cholesterol HDL >or= 60 mg/dL High HDL Cholesterol Performed By: #### L 3300.1750, L3100.5055 #### [facility] [address] [place], [address] Cholesterol in LDL [Mass/Vol] 116 mg/dL Normal 0-130 [facility] Comment on above: Performed By: #### L 3300.1750, L3100.5055 #### [facility] [address] [place], [address] Cholesterol in VLDL [Mass/Vol] 28 mg/dL Normal 5-40 [facility] Comment on above: Performed By: #### L 3300.1750, L3100.5055 #### [facility] [address] [place], [address] Triglyceride [Mass/Vol] 139 mg/dL Normal [facility] Comment on above: Result Comment: The drugs N-Acetylcysteine and Metamizole may falsely depress this assay. Serum Triglycerides Reference Interval Normal <150 mg/dL Borderline high 150 - 199 mg/dL High 200 - 499 mg/dL Very High > or = 500 mg/dL Performed By: #### L 3300.1750, L3100.5055 #### [facility] [address] [place], [address] Low density lipoprotein (LDL ) cholesterol measurementOrdered By: Katelyn Galicia on 12-31-2024 Cholesterol in LDL [Mass/Vol] 116 mg/dL 0-130 [facility] Potassium measurementOrdered By: Katelyn Galicia on 12-31-2024 Potassium [Moles/Vol] 4.5 mmol/L 3.5-5.1 [facility] Serum anion gap measurementO rdered By: Katelyn Galicia on 12-31-2024 Anion gap [Moles/Vol] 8 mmol/L 5-15 [facility] Serum or plasma alanine whittington otransferase (ALT) measurementOrdered By: Katelyn Galicia on 12-31-2024 ALT [Catalytic activity/Vol] 23 U/L 13-56 [facility] Serum or plasma calcium kecia urement (mass/volume)Ordered By: Katelyn Galicia on 12-31-2024 Calcium [Mass/Vol] 9.3 mg/dL 8.5-10.1 [facility] Serum or plasma cholesterol measurement (mass/volume)Ordered By: Katelyn Galicia on 12-31-2024 Cholesterol [Mass/Vol] 181 mg/dL <200 [facility] Comment on above: <200 mg/dL Desirable 200-240 mg/dL Borderline >240 mg/dL High Risk Serum or plasma creatinine m easurement (mass/volume)Ordered By: Katelyn Galicia on 12-31-2024 Creatinine [Mass/Vol] 0.74 mg/dL 0.55-1.02 [facility] Comment on above: The validity of the calculated GFR & GFRAA in patients over 70 years has not been determined. Clinical correlation is essential. Serum or plasma urea nitroge n measurement (mass/volume)Ordered By: Katelyn Galicia on 12-31-2024 Urea nitrogen [Mass/Vol] 13 mg/dL 05-30 [facility] Service comment (Unsp spec) [Interp]Ordered By: Katelyn Galicia on 12-31-2024 LDL Cholesterol Direct Comment TNP [facility] Comment on above: Test not performed Sodium levelOrdered By: Kole Galicia on 12-31-2024 Sodium [Moles/Vol] 139 mmol/L 136-145 [facility] T4 Free Directon 12-31-2024 T4 FREE DIRECT 0.93 ng/dL Normal 0.76-1.46 [facility] Comment on above: Performed By: #### L 3300.1750, L3100.5055 #### [facility] Laboratory [address] [place], [place], [address] TSH QnOrdered By: Katelyn mckinnon on 12-31-2024 Thyroid Stimulating Hormone (TSH) 2.900 uIU/mL 0.358-3.740 [facility] Thyroid Stim Hormone (TSH)on 12-31-2024 TSH 2.900 uIU/mL Normal 0.358-3.740 [facility] Comment on above: Performed By: #### L 3300.1750, L3100.5055 #### [facility] Laboratory [address] [place], [place], [address] Triglycerides measurementOrd ered By: Katelyn Galicia on 12-31-2024 Triglyceride [Mass/Vol] 139 mg/dL <199 [facility] Comment on above: The drugs N-Acetylcy steine and Metamizole may falsely depress this assay.Serum Triglycerides Reference Interval Normal <150 mg/dL Borderline high 150 - 199 mg/dL High 200 - 499 mg/dL Very High > or = 500 mg/dL Very low density lipoprotein (VLDL) cholesterol measurementOrdered By: Katelyn Galicia on 12-31-2024 VLDL Cholesterol 28 mg/dL 5-40 [facility] Basic Metabolic Profile (BMP )on 11-11-2024 BUN/CRE 15.3 RATIO Normal 10-20 [facility] Comment on above: Performed By: #### L 500.2500, L501.5200 #### [facility] Laboratory [address] [place], [address] CA,Total 9.2 mg/dL Normal 8.5-10.1 [facility] Comment on above: Performed By: #### L 500.2500, L501.5200 #### [facility] Laboratory [address] [place], [address] Chloride [Moles/Vol] 105 mmol/L Normal 98-107 [facility] Comment on above: Performed By: #### L 500.2500, L501.5200 #### [facility] Laboratory [address] [place], [address] CO2 [Moles/Vol] 28.0 mmol/L Normal 21.0-32.0 [facility] Comment on above: Performed By: #### L 500.2500, L501.5200 #### [facility] Laboratory [address] [place], [address] Creatinine [Mass/Vol] 0.72 mg/dL Normal 0.55-1.02 [facility] Comment on above: Result Comment: The validity of the calculated GFR GFRAA in patients over 70 years has not been determined. Clinical correlation is essential. Performed By: #### L 500.2500, L501.5200 #### [facility] Laboratory [address] [place], [address] EST GFR - AA 107 mL/min Normal >60 [facility] Comment on above: Result Comment: Afri can [place]uv[place] GFR Calc Performed By: #### L 500.2500, L501.5200 #### [facility] Laboratory [address] [place], [address] GAP 5 Normal 5-15 [facility] Comment on above: Performed By: #### L 500.2500, L501.5200 #### [facility] Laboratory [address] [place], [address] GFR/1.73 sq M.predicted among non-blacks MDRD (S/P/Bld) [Vol rate/Area] 89 mL/min/{1.73_m2} Normal >60 [facility] Comment on above: Result Comment: Non- GFR Calc Performed By: #### L 500.2500, L501.5200 #### [facility] Laboratory [address] [place], [address] Glucose [Mass/Vol] 99 mg/dL Normal 74-106 [facility] Comment on above: Performed By: #### L 500.2500, L501.5200 #### [facility] Laboratory [address] [place], [address] Potassium [Moles/Vol] 3.8 mmol/L Normal 3.5-5.1 [facility] Comment on above: Performed By: #### L 500.2500, [id number] #### [facility] Laboratory [address] [place], [address] Sodium [Moles/Vol] 138 mmol/L Normal 136-145 [facility] Comment on above: Performed By: #### L 500.2500, [id number] #### [facility] Laboratory [address] [place], [address] Urea nitrogen [Mass/Vol] 11 mg/dL Normal 7-18 [facility] Comment on above: Performed By: #### L 500.2500, L501.5200 #### [facility] Laboratory [address] [place], [address] Blood urea nitrogen (BUN)/cr eatinine ratioOrdered By: Candelaria Grissom on 11-11-2024 Urea nitrogen/Creatinine [Mass ratio] 15.3 mg/mg 10-20 [facility] Carbon dioxide measurementOr dered By: Candelaria Grissom on 11-11-2024 CO2 [Moles/Vol] 28.0 mmol/L 21.0-32.0 [facility] Chloride measurementOrdered By: Candelaria Grissom on 11-11-2024 Chloride [Moles/Vol] 105 mmol/L 98-107 [facility] Estimated glomerular filtrat ion rate (GFR) AmericanOrdered By: Candelaria Grissom on 11-11-2024 Estimated GFR (MDRD) Amer 107 mL/min >60 [facility] Comment on above: GFR Calc Glomerular filtration rate ( GFR) estimationOrdered By: Candelaria Grissom on 11-11-2024 Estimated GFR (MDRD) Non-Af Amer 89 mL/min >60 [facility] Comment on above: Non- GFR Calc Glucose measurementOrdered B y: Candelaria Grissom on 11-11-2024 Glucose [Mass/Vol] 99 mg/dL 74-106 [facility] Magnesiumon 11-11-2024 Magnesium [Mass/Vol] 1.7 mg/dL Normal 1.6-2.6 [facility] Comment on above: Performed By: #### L 500.2500, L501.5200 #### [facility] Laboratory [address] [place] [address], [id number] Magnesium measurementOrdered By: Candelaria Grissom on 11-11-2024 Magnesium [Mass/Vol] 1.7 mg/dL 1.6-2.6 [facility] Potassium measurementOrdered By: Candelaria Grissom on 11-11-2024 Potassium [Moles/Vol] 3.8 mmol/L 3.5-5.1 [facility] Serum anion gap measurementO rdered By: Candelaria Grissom on 11-11-2024 Anion gap [Moles/Vol] 5 mmol/L 5-15 [facility] Serum or plasma calcium kecia urement (mass/volume)Ordered By: Candelaria Grissom on 11-11-2024 Calcium [Mass/Vol] 9.2 mg/dL 8.5-10.1 [facility] Serum or plasma creatinine m easurement (mass/volume)Ordered By: Candelaria Grissom on 11-11-2024 Creatinine [Mass/Vol] 0.72 mg/dL 0.55-1.02 [facility] Comment on above: The validity of the calculated GFR & GFRAA in patients over 70 years has not been determined. Clinical correlation is essential. Serum or plasma urea nitroge n measurement (mass/volume)Ordered By: Candelaria Grissom on 11-11-2024 Urea nitrogen [Mass/Vol] 11 mg/dL 7-18 [facility] Sodium levelOrdered By: Jhoan Grissom on 11-11-2024 Sodium [Moles/Vol] 138 mmol/L 136-145 [facility] Thyroidon 11-01-2024 Thyroid [facility] Services [address] [place], [place] [address] Thyroid MR#: [id number] Acct: [id number] Name: TAYLOR VAZQUEZ Rep #: [id number] : 1965 F 59 From: Dimitrios Santos MD PCP: Dr. Alessia Herr MD Status: REG CLI Study: Thyroid Date of Exam: 11/01/24 Exam# [id number] Ordering Dr: Katelyn Galicia [employer] N P-C [id number] STUDY: THYROID ULTRASOUND REASON FOR EXAM: Female, [...] CC: TONE Galicia; Dr. Alessia Herr MD Division Director: Signed Normal [facility] Cardiology Visit Reporton Cardiology Visit Report [facility] [address] [place] [address] OFFICE VISIT Date of Service: 09/09/24 MR#: [id number] Acct: [id number] Name: TAYLOR VAZQUEZ Rep #: [id number] : 1965 Provider: RAZ Rico Age/Sex: 59/F Location: [facility] Status: Signed [facility] History of Present Illness Details: Taylor Vazquez is a 59 year-old lady with [...] coronary calcium score in April 2024 at [facility]. Her total score was 9.76. Pt has [...] 95 Intake Visit Reasons: 4 M FU Magnetic Doctor Required: No Is patient in pain?: No [...] Medical History (Updated 04/03/24 @ 14:51 by Candelaria CRANDALL, PA) Non-ischemic cardiomyopathy Type 2 diabetes [...] normal inspect (more content not included)... Normal [facility] CT CARDIAC SCORING WO IV CON TRASTon 05-08-2024 CT CARDIAC SCORING WO IV CONTRAST Interpreted By: Lavinia Yeung, STUDY: CT CARDIAC SCORING WO IV CONTRAST; 05/08/2024 5:23 pm INDICATION: Signs/Symptoms:CT CARDIAC SCORE. COMPARISON: None. ACCESSION NUMBER(S): [id number] ORDERING CLINICIAN: CANDELARIA GRISSOM TECHNIQUE: Using prospective ECG gating, CT [...] coronary heart disease events. According to the [place] [employer] Clinical Expert Consensus [...] modify other non-lipid coronary risk factors. Reference: [place] P et al. Circulation. 2007; 115:402-426 MACRO: None Signed by: Lavinia Yeung 05/10/2024 4:32 PM Dictation workstation: [id number] [facility] Basophil percentageon 2023 Chloride [Moles/Vol] 108 mmol/L 98-107 [facility] Cholesterol [Mass/Vol] 179 mg/dL <200 [facility] Comment on above: <200 mg/dL Desirable 200-240 mg/dL Borderline >240 mg/dL High Risk Glucose [Mass/Vol] 95 mg/dL 74-106 [facility] Potassium [Moles/Vol] 4.4 mmol/L 3.5-5.1 [facility] Sodium [Moles/Vol] 140 mmol/L 136-145 [facility] Triglyceride [Mass/Vol] 170 mg/dL <199 [facility] Comment on above: The drugs N-Acetylcy steine and Metamizole may falsely depress this assay.Serum Triglycerides Reference Interval Normal <150 mg/dL Borderline high 150 - 199 mg/dL High 200 - 499 mg/dL Very High > or = 500 mg/dL Laboratory - Chemistry and C hemistry - challengeon 12-26-2023 ALT [Catalytic activity/Vol] 16 U/L 13-56 [facility] Cholesterol in HDL [Mass/Vol] 41 mg/dL >40 [facility] Comment on above: The drugs N-Acetylcy steine and Metamizole may falsely depress this assay. Reference Range HDL <40 mg/dL Low HDL Cholesterol HDL >or= 60 mg/dL High HDL Cholesterol Cholesterol in LDL [Mass/Vol] 104 mg/dL 0-130 [facility] CO2 [Moles/Vol] 27.0 mmol/L 21.0-32.0 [facility] Urea nitrogen/Creatinine [Mass ratio] 19.4 mg/mg 10-20 [facility] No Panel Informationon 12-26 Estimated GFR (MDRD) Amer 99 mL/min >60 [facility] Comment on above: GFR Calc Estimated GFR (MDRD) Non-Af Amer 82 mL/min >60 [facility] Comment on above: Non- GFR Calc VLDL Cholesterol 34 mg/dL 5-40 [facility] Serum or plasma calcium kecia urement (mass/volume)on 12-26-2023 Calcium [Mass/Vol] 9.2 mg/dL 8.5-10.1 [facility] Serum or plasma creatinine m easurement (mass/volume)on 12-26-2023 Creatinine [Mass/Vol] 0.77 mg/dL 0.55-1.02 [facility] Comment on above: The validity of the calculated GFR & GFRAA in patients over 70 years has not been determined. Clinical correlation is essential. Serum or plasma thyroid stim ulating hormone (TSH) measurement (units/volume)on 12-26-2023 TSH Qn 2.57 uIU/mL 0.358-3.74 [facility] Serum or plasma urea nitroge n measurement (mass/volume)on 12-26-2023 Urea nitrogen [Mass/Vol] 15 mg/dL 7-18 [facility] Thin prep Papanicolaou smear with manual screeningon 12-26-2023 Thin prep Papanicolaou smear with manual screening 14 U/L 15-37 [facility] Thin prep Papanicolaou smear with manual screening 5 5-15 [facility] Thin prep Papanicolaou smear with manual screening 0.82 ng/dL 0.76-1.46 [facility] Whole blood hemoglobin A1c/t otal hemoglobin ratio (mass fraction)on 12-26-2023 HbA1c (Bld) [Mass fraction] 5.6 % 3.8-5.6 [facility] Comment on above: Normal < 5.7 % Predi abetic 5.7 - 6.4 % Diabetic >or= 6.5 % Please note range changes. Basophil percentageOrdered B y: Candelaria Grissom on 10-02-2023 Chloride [Moles/Vol] 103 mmol/L 98-107 [facility] Glucose [Mass/Vol] 92 mg/dL 74-106 [facility] Potassium [Moles/Vol] 4.3 mmol/L 3.5-5.1 [facility] Sodium [Moles/Vol] 138 mmol/L 136-145 [facility] Laboratory - Chemistry and C hemistry - challengeOrdered By: Candelaria Grissom on 10-02-2023 CO2 [Moles/Vol] 30.0 mmol/L 21.0-32.0 [facility] Magnesium [Mass/Vol] 2.0 mg/dL 1.6-2.6 [facility] Urea nitrogen/Creatinine [Mass ratio] 22.7 mg/mg - [facility] No Panel InformationOrdered By: Candelaria Grissom on 10-02-2023 Estimated GFR (MDRD) Amer 110 mL/min >60 [facility] Comment on above: GFR Calc Estimated GFR (MDRD) Non-Af Amer 91 mL/min >60 [facility] Comment on above: Non- GFR Calc Thyroid Stimulating Hormone (TSH) 1.57 uIU/mL 0.358-3.74 [facility] Serum or plasma calcium kecia urement (mass/volume)Ordered By: Candelaria Grissom on 10-02-2023 Calcium [Mass/Vol] 9.2 mg/dL 8.5-10.1 [facility] Serum or plasma creatinine m easurement (mass/volume)Ordered By: Candelaria Grissom on 10-02-2023 Creatinine [Mass/Vol] 0.70 mg/dL 0.55-1.02 [facility] Comment on above: The validity of the calculated GFR & GFRAA in patients over 70 years has not been determined. Clinical correlation is essential. Serum or plasma urea nitroge n measurement (mass/volume)Ordered By: Candelaria Grissom on 10-02-2023 Urea nitrogen [Mass/Vol] 16 mg/dL 7-18 [facility] Thin prep Papanicolaou smear with manual screeningOrdered By: Candelaria Grissom on 10-02-2023 Thin prep Papanicolaou smear with manual screening 5 5-15 [facility] Basophil percentageOrdered B y: Katelyn Galicia on 06-28-2023 Chloride [Moles/Vol] 105 mmol/L 98-107 [facility] Cholesterol [Mass/Vol] 179 mg/dL <200 [facility] Comment on above: <200 mg/dL Desirable 200-240 mg/dL Borderline >240 mg/dL High Risk Glucose [Mass/Vol] 82 mg/dL 74-106 [facility] Potassium [Moles/Vol] 3.9 mmol/L 3.5-5.1 [facility] Sodium [Moles/Vol] 138 mmol/L 136-145 [facility] Triglyceride [Mass/Vol] 193 mg/dL <199 [facility] Comment on above: The drugs N-Acetylcy steine and Metamizole may falsely depress this assay.Serum Triglycerides Reference Interval Normal <150 mg/dL Borderline high 150 - 199 mg/dL High 200 - 499 mg/dL Very High > or = 500 mg/dL Laboratory - Chemistry and C hemistry - challengeOrdered By: Katelyn Galicia on 06-28-2023 ALT [Catalytic activity/Vol] 19 U/L 13-56 [facility] CO2 [Moles/Vol] 30.0 mmol/L 21.0-32.0 [facility] Free T4 [Mass/Vol] 0.81 ng/dL 0.76-1.46 [facility] Urea nitrogen/Creatinine [Mass ratio] 24.0 mg/mg 10-20 [facility] No Panel InformationOrdered By: Katelyn Galicia on 06-28-2023 Estimated GFR (MDRD) Amer 110 mL/min >60 [facility] Comment on above: GFR Calc Estimated GFR (MDRD) Non-Af Amer 91 mL/min >60 [facility] Comment on above: Non- GFR Calc Thyroid Stimulating Hormone (TSH) 2.24 uIU/mL 0.358-3.74 [facility] Serum or plasma calcium kecia urement (mass/volume)Ordered By: Katelyn Galicia on 06-28-2023 Calcium [Mass/Vol] 8.7 mg/dL 8.5-10.1 [facility] Serum or plasma cholesterol in HDL measurement (mass/volume)Ordered By: Katelyn Galicia on 06-28-2023 Cholesterol in HDL [Mass/Vol] 42 mg/dL >40 [facility] Comment on above: The drugs N-Acetylcy steine and Metamizole may falsely depress this assay. Reference Range HDL <40 mg/dL Low HDL Cholesterol HDL >or= 60 mg/dL High HDL Cholesterol Serum or plasma cholesterol in VLDL measurement (mass/volume)Ordered By: Katelyn Galicia on 06-28-2023 Cholesterol in VLDL [Mass/Vol] 39 mg/dL 5-40 [facility] Serum or plasma creatinine m easurement (mass/volume)Ordered By: Katelyn Galicia on 06-28-2023 Creatinine [Mass/Vol] 0.71 mg/dL 0.55-1.02 [facility] Comment on above: The validity of the calculated GFR & GFRAA in patients over 70 years has not been determined. Clinical correlation is essential. Serum or plasma low density lipoprotein (LDL) cholesterol measurement (mass/volume)Ordered By: Katelyn Galicia on 06-28-2023 Cholesterol in LDL [Mass/Vol] 98 mg/dL 0-130 [facility] Serum or plasma urea nitroge n measurement (mass/volume)Ordered By: Katelyn Galicia on 06-28-2023 Urea nitrogen [Mass/Vol] 17 mg/dL 7-18 [facility] Thin prep Papanicolaou smear with manual screeningOrdered By: Katelyn Galicia on 06-28-2023 Thin prep Papanicolaou smear with manual screening 12 U/L 15-37 [facility] Thin prep Papanicolaou smear with manual screening 3 5-15 [facility] Whole blood hemoglobin A1c/t otal hemoglobin ratio (mass fraction)Ordered By: Katelyn Galicia on 06-28-2023 HbA1c (Bld) [Mass fraction] 5.7 % 3.8-5.6 [facility] Comment on above: Normal < 5.7 % Predi abetic 5.7 - 6.4 % Diabetic >or= 6.5 % Please note range changes. Basophil percentageon 2021 Chloride [Moles/Vol] 104 mmol/L 98-107 [facility] Work Phone: Cholesterol [Mass/Vol] 178 mg/dL <200 [facility] Work Phone: Comment on above: <200 mg/dL Desirable 200-240 mg/dL Borderline >240 mg/dL High Risk Glucose [Mass/Vol] 84 mg/dL 74-106 [facility] Work Phone: [phone] Potassium [Moles/Vol] 4.0 mmol/L 3.5-5.1 [facility] Work Phone: Sodium [Moles/Vol] 138 mmol/L 136-145 [facility] Work Phone: Triglyceride [Mass/Vol] 144 mg/dL <199 [facility] Work Phone: Comment on above: The drugs N-Acetylcy steine and Metamizole may falsely depress this assay.Serum Triglycerides Reference Interval Normal <150 mg/dL Borderline high 150 - 199 mg/dL High 200 - 499 mg/dL Very High > or = 500 mg/dL Laboratory - Chemistry and C hemistry - challengeon 10-12-2022 ALT [Catalytic activity/Vol] 23 U/L 13-56 [facility] Work Phone: CO2 [Moles/Vol] 27.0 mmol/L 21.0-32.0 [facility] Work Phone: Free T4 [Mass/Vol] 0.77 ng/dL 0.76-1.46 [facility] Work Phone: Urea nitrogen/Creatinine [Mass ratio] 24.7 mg/mg 10-20 [facility] Work Phone: No Panel Informationon 10-12 Estimated GFR (MDRD) Amer 100 mL/min >60 [facility] Work Phone: Comment on above: GFR Calc Estimated GFR (MDRD) Non-Af Amer 83 mL/min >60 [facility] Work Phone: Comment on above: Non- GFR Calc Thyroid Stimulating Hormone (TSH) 2.58 uIU/mL 0.358-3.74 [facility] Work Phone: Serum or plasma calcium kecia urement (mass/volume)on 10-12-2022 Calcium [Mass/Vol] 8.8 mg/dL 8.5-10.1 [facility] Work Phone: Serum or plasma cholesterol in HDL measurement (mass/volume)on 10-12-2022 Cholesterol in HDL [Mass/Vol] 43 mg/dL >40 [facility] Work Phone: Comment on above: The drugs N-Acetylcy steine and Metamizole may falsely depress this assay. Reference Range HDL <40 mg/dL Low HDL Cholesterol HDL >or= 60 mg/dL High HDL Cholesterol Serum or plasma cholesterol in VLDL measurement (mass/volume)on 10-12-2022 Cholesterol in VLDL [Mass/Vol] 29 mg/dL 5-40 [facility] Work Phone: Serum or plasma creatinine m easurement (mass/volume)on 10-12-2022 Creatinine [Mass/Vol] 0.77 mg/dL 0.55-1.02 [facility] Work Phone: Comment on above: The validity of the calculated GFR & GFRAA in patients over 70 years has not been determined. Clinical correlation is essential. Serum or plasma low density lipoprotein (LDL) cholesterol measurement (mass/volume)on 10-12-2022 Cholesterol in LDL [Mass/Vol] 106 mg/dL 0-130 [facility] Work Phone: Serum or plasma urea nitroge n measurement (mass/volume)on 10-12-2022 Urea nitrogen [Mass/Vol] 19 mg/dL 7-18 [facility] Work Phone: Thin prep Papanicolaou smear with manual screeningon 10-12-2022 Thin prep Papanicolaou smear with manual screening 10 U/L 15-37 [facility] Work Phone: Thin prep Papanicolaou smear with manual screening 7 5-15 [facility] Work Phone: Whole blood hemoglobin A1c/t otal hemoglobin ratio (mass fraction)on 10-12-2022 HbA1c (Bld) [Mass fraction] 5.9 % 3.8-5.6 [facility] Work Phone: Comment on above: Normal < 5.7 % Predi abetic 5.7 - 6.4 % Diabetic >or= 6.5 % Please note range changes. Laboratory - Microbiology an d Antimicrobial susceptibilityon 06-07-2022 SARS-CoV-2 (COVID-19) RNA PARIS+probe Ql (Unsp spec) Not detected Not Detect [facility] Work Phone: Comment on above: Normal Reference Ran ge: Not DetectedMethod:(RT-PCR) real-time reverse transcriptase PCRLuminex GONZALO Instrument*The Food and Drug Administration (FDA) has [...] percentageon 2021 Chloride [Moles/Vol] 104 mmol/L 98-107 [facility] Work Phone: Cholesterol [Mass/Vol] 192 mg/dL <200 [facility] Work Phone: Comment on above: <200 mg/dL Desirable 200-240 mg/dL Borderline >240 mg/dL High Risk Glucose [Mass/Vol] 97 mg/dL 74-106 [facility] Work Phone: Potassium [Moles/Vol] 4.2 mmol/L 3.5-5.1 [facility] Work Phone: Sodium [Moles/Vol] 136 mmol/L 136-145 [facility] Work Phone: Triglyceride [Mass/Vol] 142 mg/dL <199 [facility] Work Phone: Comment on above: The drugs N-Acetylcy steine and Metamizole may falsely depress this assay.Serum Triglycerides Reference Interval Normal <150 mg/dL Borderline high 150 - 199 mg/dL High 200 - 499 mg/dL Very High > or = 500 mg/dL Laboratory - Chemistry and C hemistry - challengeon 04-12-2022 ALT [Catalytic activity/Vol] 29 U/L 13-56 [facility] Work Phone: CO2 [Moles/Vol] 26.0 mmol/L 21.0-32.0 [facility] Work Phone: Free T4 [Mass/Vol] 0.96 ng/dL 0.76-1.46 [facility] Work Phone: Urea nitrogen/Creatinine [Mass ratio] 21.9 mg/mg 10-20 [facility] Work Phone: No Panel Informationon 04-12 Estimated GFR (MDRD) Amer 99 mL/min >60 [facility] Work Phone: Comment on above: GFR Calc Estimated GFR (MDRD) Non-Af Amer 82 mL/min >60 [facility] Work Phone: Comment on above: Non- GFR Calc Thyroid Stimulating Hormone (TSH) 1.93 uIU/mL 0.358-3.74 [facility] Work Phone: Serum or plasma calcium kecia urement (mass/volume)on 04-12-2022 Calcium [Mass/Vol] 8.8 mg/dL 8.5-10.1 [facility] Work Phone: Serum or plasma cholesterol in HDL measurement (mass/volume)on 04-12-2022 Cholesterol in HDL [Mass/Vol] 44 mg/dL >40 [facility] Work Phone: Comment on above: The drugs N-Acetylcy steine and Metamizole may falsely depress this assay. Reference Range HDL <40 mg/dL Low HDL Cholesterol HDL >or= 60 mg/dL High HDL Cholesterol Serum or plasma cholesterol in VLDL measurement (mass/volume)on 04-12-2022 Cholesterol in VLDL [Mass/Vol] 28 mg/dL 5-40 [facility] Work Phone: Serum or plasma creatinine m easurement (mass/volume)on 04-12-2022 Creatinine [Mass/Vol] 0.78 mg/dL 0.55-1.02 [facility] Work Phone: Comment on above: The validity of the calculated GFR & GFRAA in patients over 70 years has not been determined. Clinical correlation is essential. Serum or plasma low density lipoprotein (LDL) cholesterol measurement (mass/volume)on 04-12-2022 Cholesterol in LDL [Mass/Vol] 120 mg/dL 0-130 [facility] Work Phone: Serum or plasma urea nitroge n measurement (mass/volume)on 04-12-2022 Urea nitrogen [Mass/Vol] 17 mg/dL 7-18 [facility] Work Phone: Thin prep Papanicolaou smear with manual screeningon 04-12-2022 Thin prep Papanicolaou smear with manual screening 18 U/L 15-37 [facility] Work Phone: Thin prep Papanicolaou smear with manual screening 6 5-15 [facility] Work Phone: Whole blood hemoglobin A1c/t otal hemoglobin ratio (mass fraction)on 04-12-2022 HbA1c (Bld) [Mass fraction] 5.5 % 3.8-5.6 [facility] Work Phone: [phone] Comment on above: Normal < 5.7 % Predi abetic 5.7 - 6.4 % Diabetic >or= 6.5 % Please note range changes. Absolute lymphocyte counton 03-29-2022 Lymphocytes Auto (Unsp spec) [#/Vol] 2.86 10*3/uL 0.83-4.51 [facility] Work Phone: Basophil percentageon 2021 Basophils/100 WBC (Bld) 0.9 % 0-1 [facility] Work Phone: Chloride [Moles/Vol] 104 mmol/L 98-107 [facility] Work Phone: Eosinophils/100 WBC (Bld) 1.5 % 0-5 [facility] Work Phone: [phone] Glucose [Mass/Vol] 88 mg/dL 74-106 [facility] Work Phone: Neutrophils (Bld) [#/Vol] 5.0 10*3/uL 2.0-7.7 [facility] Work Phone: Neutrophils/100 WBC (Bld) 56.5 % 47-70 [facility] Work Phone: Potassium [Moles/Vol] 3.9 mmol/L 3.5-5.1 [facility] Work Phone: Sodium [Moles/Vol] 137 mmol/L 136-145 [facility] Work Phone: WBC (Bld) [#/Vol] 8.8 10*3/uL 4.4-11.0 [facility] Work Phone: [phone] Blood erythrocytes count (nu mber/volume)on 03-29-2022 RBC (Bld) [#/Vol] 4.23 10*6/uL 4.2-5.4 [facility] Work Phone: [phone] Blood hemoglobin measurement (mass/volume)on 03-29-2022 Hemoglobin (Bld) [Mass/Vol] 11.6 g/dL 12.0-15.0 [facility] Work Phone: Blood lymphocytes/100 leukoc yteson 03-29-2022 Lymphocytes/100 WBC (Bld) 32.6 % 19-41 [facility] Work Phone: Blood monocytes/100 leukocyt eson 03-29-2022 Monocytes/100 WBC (Bld) 8.2 % 0-10 [facility] Work Phone: Blood platelet mean volumeon 03-29-2022 Platelet mean volume (Bld) [Entitic vol] 9.9 fL 6.2-12.0 [facility] Work Phone: Determination of erythrocyte mean corpuscular volume (MCV)on 03-29-2022 MCV (RBC) [Entitic vol] 86.1 fL 81-99 [facility] Work Phone: Hematocrit Auto (Bld) [Volum e fraction]on 03-29-2022 Hematocrit (Bld) [Volume fraction] 36.4 % 37-47 [facility] Work Phone: INR in Blood by Coagulation assayon 03-29-2022 INR Coag (Bld) [Relative time] 1.0 {INR} [facility] Work Phone: Laboratory - Chemistry and C hemistry - challengeon 03-29-2022 CO2 [Moles/Vol] 28.0 mmol/L 21.0-32.0 [facility] Work Phone: Urea nitrogen/Creatinine [Mass ratio] 22.8 mg/mg 10-20 [facility] Work Phone: Laboratory - Coagulationon 0 03-29-2022 PT Coag (PPP) [Time] 13.0 s 11.7-14.9 [facility] Work Phone: Laboratory - Hematology and Cell countson 03-29-2022 Erythrocyte distribution width (RBC) [Entitic vol] 46.8 fL 35.1-43.9 [facility] Work Phone: Erythrocyte distribution width (RBC) [Ratio] 14.9 % 11.6-14.6 [facility] Work Phone: Immature granulocytes/100 WBC (Bld) 0.300 % 0.0-0.9 [facility] Work Phone: Comment on above: IG% - Immature Granu locytes (promyelocytes, myelocytes and metamyelocytes) > 1% indicates that a LEFT SHIFT is Present. MCH (RBC) [Entitic mass] 27.4 pg 27.0-32.0 [facility] Work Phone: Nucleated RBC/100 WBC (Bld) [Ratio] 0 % 0-5 [facility] Work Phone: MCHC Auto (RBC) [Mass/Vol]on 03-29-2022 MCHC (RBC) [Mass/Vol] 31.9 g/dL 32-36 [facility] Work Phone: No Panel Informationon 03-29 Estimated GFR (MDRD) Amer 104 mL/min >60 [facility] Work Phone: Comment on above: GFR Calc Estimated GFR (MDRD) Non-Af Amer 86 mL/min >60 [facility] Work Phone: Comment on above: Non- GFR Calc Platelets bldon 03-29-2022 Platelets (Bld) [#/Vol] 257 10*3/uL 150-450 [facility] Work Phone: Serum or plasma calcium kecia urement (mass/volume)on 03-29-2022 Calcium [Mass/Vol] 8.8 mg/dL 8.5-10.1 [facility] Work Phone: Serum or plasma creatinine m easurement (mass/volume)on 03-29-2022 Creatinine [Mass/Vol] 0.74 mg/dL 0.55-1.02 [facility] Work Phone: Comment on above: The validity of the calculated GFR & GFRAA in patients over 70 years has not been determined. Clinical correlation is essential. Serum or plasma urea nitroge n measurement (mass/volume)on 03-29-2022 Urea nitrogen [Mass/Vol] 17 mg/dL 7-18 [facility] Work Phone: Thin prep Papanicolaou smear with manual screeningon 03-29-2022 Thin prep Papanicolaou smear with manual screening 5 5-15 [facility] Work Phone: Cervical or vagninal specime n microscopic examination by cytology stain (reported ason 12-21-2021 Cytology report Cyto stain Doc (Cvx/Vag) Comment [facility] Work Phone: Comment on above: The Pap [...] DNA Probe+sig amp Ql (Cvx) Negative Negative [facility] Work Phone: Comment on above: This nucleic acid am plification test detects fourteen high-risk HPV types (16,18,31,33,35,39,45,51,52,56,58,59,66,68)without differentiation.Performed at: - [address] [id number] Director: Trina Apple MD, Phone: [phone] at: = - [address] [id number] Director: Trina Apple MD, Phone: [phone] Laboratory - Cytologyon Heavy Equipment Service Manager Cyto stain Nom (Cvx/Vag) [ID] Comment [facility] Work Phone: Comment on above: Shanti Montiel, Roller Presser Operator (ASCP) Laboratory - Miscellaneous t estson 12-21-2021 Service comment (Unsp spec) [Interp] Comment [facility] Work Phone: Comment on above: This liquid based Th inPrep(R) pap test was screened withthe use of an image guided system. Service comment (Unsp spec) [Interp] . [facility] Work Phone: No Panel Informationon 12-21 Pathology report final diagnosis Narrative Comment [facility] Work Phone: Comment on above: NEGATIVE FOR INTRAEP ITHELIAL LESION OR MALIGNANCY. Absolute lymphocyte counton 11-30-2021 Lymphocytes Auto (Unsp spec) [#/Vol] 3.67 10*3/uL 0.83-4.51 [facility] Work Phone: [phone] Basophil percentageon 2021 Basophils/100 WBC (Bld) 0.8 % 0-1 [facility] Work Phone: [phone] Chloride [Moles/Vol] 102 mmol/L 98-107 [facility] Work Phone: [phone] Eosinophils/100 WBC (Bld) 2.5 % 0-5 [facility] Work Phone: [phone] Glucose [Mass/Vol] 91 mg/dL 74-106 [facility] Work Phone: [phone] Neutrophils (Bld) [#/Vol] 6.0 10*3/uL 2.0-7.7 [facility] Work Phone: [phone] Neutrophils/100 WBC (Bld) 54.3 % 47-70 [facility] Work Phone: [phone] Potassium [Moles/Vol] 4.2 mmol/L 3.5-5.1 [facility] Work Phone: [phone] Sodium [Moles/Vol] 137 mmol/L 136-145 [facility] Work Phone: [phone] WBC (Bld) [#/Vol] 11.0 10*3/uL 4.4-11.0 [facility] Work Phone: Blood erythrocytes count (nu mber/volume)on 11-30-2021 RBC (Bld) [#/Vol] 4.39 10*6/uL 4.2-5.4 [facility] Work Phone: Blood hemoglobin measurement (mass/volume)on 11-30-2021 Hemoglobin (Bld) [Mass/Vol] 12.1 g/dL 12.0-15.0 [facility] Work Phone: Blood lymphocytes/100 leukoc yteson 11-30-2021 Lymphocytes/100 WBC (Bld) 33.4 % 19-41 [facility] Work Phone: Blood monocytes/100 leukocyt eson 11-30-2021 Monocytes/100 WBC (Bld) 8.6 % 0-10 [facility] Work Phone: Blood platelet mean volumeon 11-30-2021 Platelet mean volume (Bld) [Entitic vol] 9.4 fL 6.2-12.0 [facility] Work Phone: Determination of erythrocyte mean corpuscular volume (MCV)on 11-30-2021 MCV (RBC) [Entitic vol] 85.0 fL 81-99 [facility] Work Phone: Hematocrit Auto (Bld) [Volum e fraction]on 11-30-2021 Hematocrit (Bld) [Volume fraction] 37.3 % 37-47 [facility] Work Phone: Laboratory - Chemistry and C hemistry - challengeon 11-30-2021 CO2 [Moles/Vol] 29.0 mmol/L 21.0-32.0 [facility] Work Phone: Urea nitrogen/Creatinine [Mass ratio] 23.9 mg/mg 10-20 [facility] Work Phone: Laboratory - Hematology and Cell countson 11-30-2021 Erythrocyte distribution width (RBC) [Entitic vol] 47.5 fL 35.1-43.9 [facility] Work Phone: Erythrocyte distribution width (RBC) [Ratio] 15.1 % 11.6-14.6 [facility] Work Phone: Immature granulocytes/100 WBC (Bld) 0.400 % 0.0-0.9 [facility] Work Phone: Comment on above: IG% - Immature Granu locytes (promyelocytes, myelocytes and metamyelocytes) > 1% indicates that a LEFT SHIFT is Present. MCH (RBC) [Entitic mass] 27.6 pg 27.0-32.0 [facility] Work Phone: Nucleated RBC/100 WBC (Bld) [Ratio] 0 % 0-5 [facility] Work Phone: MCHC Auto (RBC) [Mass/Vol]on 11-30-2021 MCHC (RBC) [Mass/Vol] 32.4 g/dL 32-36 [facility] Work Phone: No Panel Informationon 11-30 Estimated GFR (MDRD) Amer 118 mL/min >60 [facility] Work Phone: Comment on above: GFR Calc Estimated GFR (MDRD) Non-Af Amer 97 mL/min >60 [facility] Work Phone: Comment on above: Non- GFR Calc Thyroid Stimulating Hormone (TSH) 2.22 uIU/mL 0.358-3.74 [facility] Work Phone: Platelets bldon 11-30-2021 Platelets (Bld) [#/Vol] 241 10*3/uL 150-450 [facility] Work Phone: Serum or plasma calcium kecia urement (mass/volume)on 11-30-2021 Calcium [Mass/Vol] 8.9 mg/dL 8.5-10.1 [facility] Work Phone: Serum or plasma creatinine m easurement (mass/volume)on 11-30-2021 Creatinine [Mass/Vol] 0.67 mg/dL 0.55-1.02 [facility] Work Phone: Comment on above: The validity of the calculated GFR & GFRAA in patients over 70 years has not been determined. Clinical correlation is essential. Serum or plasma urea nitroge n measurement (mass/volume)on 11-30-2021 Urea nitrogen [Mass/Vol] 16 mg/dL 05-30 [facility] Work Phone: Thin prep Papanicolaou smear with manual screeningon 11-30-2021 Thin prep Papanicolaou smear with manual screening 6 03-27 [facility] Work Phone: Vital Signs Date Time Vital Sign Value Performing Clinician Faci lity 06-30-2025 15:53-0400 Body height 162.[address] Alessia Herr MD Work Phone: [facility] 06-30-2025 15:51-0400 Body mass index (BMI) [Ratio] 37.8 kg/m2 Dr. Alessia Herr MD Work Phone: [facility] 06-30-2025 15:51-0400 Body weight 100.[address] Alessia Herr MD Work Phone: [facility] 06-30-2025 15:51-0400 Diastolic blood pressure 92 mm[Hg] Dr. Alessia Herr MD Work Phone: [facility] 06-30-2025 15:51-0400 Systolic blood pressure 147 mm[Hg] Dr. Alessia Herr MD Work Phone: [facility] 06-04-2025 08:26-0400 Body height 162.[address] Alessia Herr MD Work Phone: [facility] 06-04-2025 08:21-0400 Body mass index (BMI) [Ratio] 39.9 kg/m2 Dr. Alessia Herr MD Work Phone: [facility] 06-04-2025 08:21-0400 Body weight 105.[address] Alessia Herr MD Work Phone: [facility] 06-04-2025 08:21-0400 Diastolic blood pressure 71 mm[Hg] Dr. Alessia Herr MD Work Phone: [facility] 06-04-2025 08:21-0400 Systolic blood pressure 109 mm[Hg] Dr. Alessia Herr MD Work Phone: [phone] [place] [address] 02-26-2025 14:49-0400 Body mass index (BMI) [Ratio] 37.8 kg/m2 Dr. Alessia Herr MD Work Phone: [phone] [place] [address] 02-26-2025 14:49-0400 Body weight 99.[address] Alessia Herr MD Work Phone: [phone] [place] [address] 02-26-2025 14:49-0400 Diastolic blood pressure 67 mm[Hg] Dr. Alessia Herr MD Work Phone: [phone] [place] [address] 02-26-2025 14:49-0400 Heart rate 77 /min Dr. Alessia Herr MD Work Phone: [facility] 02-26-2025 14:49-0400 Respiratory rate 16 /min Dr. Alessia Herr MD Work Phone: [facility] 02-26-2025 14:49-0400 Systolic blood pressure 116 mm[Hg] Dr. Alessia Herr MD Work Phone: [facility] 10-02-2023 13:58-0500 Body height 162.[address] Kin martínez Work Phone: [facility] 10-02-2023 13:58-0500 Body mass index (BMI) [Ratio] 38.2 kg/m2 Dr. Kin Herr Work Phone: [facility] 10-02-2023 13:58-0500 Body weight 101.[address] Kin martínez Work Phone: [facility] 10-02-2023 13:58-0500 Diastolic blood pressure 69 mm[Hg] Dr. Kin Herr Work Phone: [facility] 10-02-2023 13:58-0500 Heart rate 81 /min Dr. Kin martínez Work Phone: [facility] 10-02-2023 13:58-0500 Respiratory rate 18 /min Dr. Kin martínez Work Phone: [facility] 10-02-2023 13:58-0500 SaO2% (BldA) [Mass fraction] 94 % Dr. Kin Herr Work Phone: [facility] 10-02-2023 13:58-0500 Systolic blood pressure 100 mm[Hg] Dr. Kin Herr Work Phone: [facility] 10-04-2022 13:05-0500 Body height 162.[address] Kin martínez Work Phone: [facility] Work Phone: 10-04-2022 13:05-0500 Body mass index (BMI) [Ratio] 37.4 kg/m2 Dr. Kin Herr Work Phone: [facility] Work Phone: 10-04-2022 13:05-0500 Body weight 98.[address] Kin martínez Work Phone: [facility] Work Phone: 10-04-2022 13:05-0500 Diastolic blood pressure 82 mm[Hg] Dr. Kin Herr Work Phone: [facility] Work Phone: 10-04-2022 13:05-0500 Heart rate 89 /min Dr. Kin martínez Work Phone: [facility] Work Phone: 10-04-2022 13:05-0500 Respiratory rate 18 /min Dr. Kin martínez Work Phone: [facility] Work Phone: 10-04-2022 13:05-0500 SaO2% (BldA) [Mass fraction] 97 % Dr. Kin Herr Work Phone: [facility] Work Phone: 10-04-2022 13:05-0500 Systolic blood pressure 119 mm[Hg] Dr. Kin Herr Work Phone: [facility] Work Phone: 05-25-2022 11:34-0400 Body height 162.[address] Kin martínez Work Phone: [facility] Work Phone: 05-25-2022 11:34-0400 Body mass index (BMI) [Ratio] 37.9 kg/m2 Dr. Kin Herr Work Phone: [facility] Work Phone: 05-25-2022 11:34-0400 Body weight 100.[address] Kin martínez Work Phone: [facility] Work Phone: 05-25-2022 11:34-0400 Diastolic blood pressure 80 mm[Hg] Dr. Kin Herr Work Phone: [facility] Work Phone: 05-25-2022 11:34-0400 Heart rate 72 /min Dr. Kin martínez Work Phone: [facility] Work Phone: 05-25-2022 11:34-0400 Systolic blood pressure 120 mm[Hg] Dr. Kin Herr Work Phone: [facility] Work Phone: 04-07-2022 09:41-0400 Body height 162.[address] Kin martínez Work Phone: [facility] Work Phone: 04-07-2022 09:41-0400 Body weight 99.[address] Kin martínez Work Phone: [facility] Work Phone: 04-06-2022 07:57-0400 Body mass index (BMI) [Ratio] 37.8 kg/m2 Dr. Kin Herr Work Phone: [facility] Work Phone: 03-02-2022 14:58-0400 Body mass index (BMI) [Ratio] 37.9 kg/m2 Dr. Kin Herr Work Phone: [facility] Work Phone: 03-02-2022 14:58-0400 Body weight 100.[address] Kin martínez Work Phone: [facility] Work Phone: 03-02-2022 14:58-0400 Diastolic blood pressure 71 mm[Hg] Dr. Kin Herr Work Phone: [facility] Work Phone: 03-02-2022 14:58-0400 Heart rate 83 /min Dr. Kin martínez Work Phone: [facility] Work Phone: 03-02-2022 14:58-0400 Respiratory rate 18 /min Dr. Kin martínez Work Phone: [facility] Work Phone: 03-02-2022 14:58-0400 Systolic blood pressure 111 mm[Hg] Dr. Kin Herr Work Phone: [facility] Work Phone: 03-02-2022 14:58-0400 Body height 162.[address] Kin martínez Work Phone: [facility] Work Phone: 03-02-2022 14:58-0400 Body mass index (BMI) [Ratio] 37.9 kg/m2 Dr. Kin Herr Work Phone: [facility] Work Phone: 03-02-2022 14:58-0400 Body weight 100.[address] Kin martínez Work Phone: [facility] Work Phone: 03-02-2022 14:58-0400 Diastolic blood pressure 71 mm[Hg] Dr. Kin Herr Work Phone: [facility] Work Phone: 03-02-2022 14:58-0400 Heart rate 83 /min Dr. Kin martínez Work Phone: [facility] Work Phone: 03-02-2022 14:58-0400 Respiratory rate 18 /min Dr. Kin martínez Work Phone: [facility] Work Phone: 03-02-2022 14:58-0400 Systolic blood pressure 111 mm[Hg] Dr. Kin Herr Work Phone: [facility] Work Phone: 01-12-2022 07:56-0500 Body height 162.[address] Kin martínez Work Phone: [facility] Work Phone: 01-12-2022 07:56-0500 Body mass index (BMI) [Ratio] 38.4 kg/m2 Dr. Kin Herr Work Phone: [facility] Work Phone: 01-12-2022 07:56-0500 Body weight 101.[address] Kin martínez Work Phone: [facility] Work Phone: 01-12-2022 07:56-0500 Diastolic blood pressure 82 mm[Hg] Dr. Kin Herr Work Phone: [facility] Work Phone: 01-12-2022 07:56-0500 Heart rate 96 /min Dr. Kin martínez Work Phone: [facility] Work Phone: 01-12-2022 07:56-0500 Respiratory rate 16 /min Dr. Kin martínez Work Phone: [facility] Work Phone: 01-12-2022 07:56-0500 SaO2% (BldA) [Mass fraction] 95 % Dr. Kin Herr Work Phone: [facility] Work Phone: 01-12-2022 07:56-0500 Systolic blood pressure 117 mm[Hg] Dr. Kin Herr Work Phone: [facility] Work Phone: Encounters Encounter Date Encounter Type Care Provider Facility Start: 08-08-2025 ambulatory Fabiola Jorgensen Fa cility:[facility] Start: 08-05-2025 Encounter for other preprocedural examination Fabiolatalia Jorgensen [facility] Start: 06-30-2025 End: 06-30-[address] Fabiola Jorgensen DO -[facility] Work Phone: Start: 06-30-2025 End: 06-30-[address] Alessia Herr MD Work Phone: -[facility] Start: 06-30-2025 End: 06-30-2025 ambulatory Fabiola Jorgensen Facility:[facility] Start: 06-27-2025 End: 06-27-[address] Alessia Herr MD Work Phone: -Laboratory Start: 06-27-2025 End: 06-27-2025 Patient encounter procedure Katelyn GREENEC -Laboratory Work Phone: Start: 06-27-2025 End: 06-27-2025 ambulatory Alessia Herr Facility:[facility] Start: 06-13-2025 End: 06-13-[address] Alessia Herr MD Work Phone: -[facility] Start: 06-13-2025 End: 06-13-2025 Patient encounter procedure Ellie Perdomo CNM -[facility] Work Phone: Start: 06-13-2025 End: 06-13-2025 ambulatory Ellie Perdomo Facility:[facility] Start: 06-04-2025 End: 06-04-[address] Alessia Herr MD Work Phone: -Laboratory Specimen Start: 06-04-2025 End: 06-04-2025 Patient encounter procedure Ellie Conor MOLINA -Laboratory Specimen Work Phone: Start: 06-04-2025 Encounter for gynecological examination (general) (routine) without abnormal findings Ellie Conor [facility] Start: 06-04-2025 End: 06-04-2025 Patient encounter procedure Ellie Perdomo CNM -[facility] Start: 06-04-2025 End: 06-04-2025 [facility]: 06-04-2025 End: 06-04-[address] Alessia Herr MD Work Phone: -[facility] Start: 06-04-2025 End: 06-04-2025 ambulatory Alessia Herr Facility:[facility] Start: 02-26-2025 End: 02-26-2025 Patient encounter procedure Candelaria CRANDALL -[facility] Work Phone: Start: 02-26-2025 End: 02-26-2025 ambulatory Alessia Herr Facility:[facility] Start: 02-21-2025 Registered Referred Self Referred -C [facility] Work Phone: Start: 02-21-2025 ambulatory Self Referred Facility: [facility] Start: 01-29-2025 Non-patient / Non-visit Dr. Mina DUNCAN -[facility] Work Phone: Start: 01-29-2025 End: 01-29-[address] Alessia Herr MD Work Phone: [facility] Work Phone: Start: 01-29-2025 End: 01-29-2025 Patient encounter procedure Candelaria Grissom PA -Pulmonary Services/Neurology Work Phone: Start: 01-29-2025 End: 01-29-2025 [facility] Start: 01-24-2025 End: 01-24-[address] Alessia Herr MD Work Phone: [facility] Work Phone: Start: 01-24-2025 End: 01-24-2025 Patient encounter procedure Candelaria Grissom PA -Laboratory Work Phone: Start: 01-24-2025 End: 01-24-2025 [facility] Start: 12-31-2024 End: 12-31-2024 Patient encounter procedure Katelyn Galicia TELECOMMUNICATIONS FACILITY EXAMINER-C -Laboratory Work Phone: Start: 12-31-2024 End: 12-31-2024 ambulatory [facility] Facility:[facility] Start: 11-20-2024 [facility] Start: 11-11-2024 End: 11-11-2024 Patient encounter procedure Candelaria Grissom PA -Laboratory Work Phone: Start: 11-11-2024 End: 11-11-2024 ambulatory [facility] Facility:[facility] Start: 11-01-2024 End: 11-01-2024 Patient encounter procedure Katelyn Galicia TELECOMMUNICATIONS FACILITY EXAMINER-C -Ultrasound, [facility] Work Phone: Start: 11-01-2024 End: 11-01-2024 ambulatory [facility] Facility:[facility] Start: 09-09-2024 End: 09-09-2024 ambulatory Alessia Herr Facility:[facility] Start: 05-08-2024 End: 05-08-2024 Subsequent hospital visit by physician Davi Be[facility] Comment on above: Ventricular tachycar sobia (Multi); Supraventricular tachycardia (CMS-HCC); Other cardiomyopathies (Multi) Start: 05-08-2024 End: 05-08-2024 [facility] Start: 03-05-2024 End: 03-05-2024 ambulatory [facility] Work Phone: Start: 03-05-2024 End: 03-05-2024 Patient encounter procedure [facility]-Radiology, [place] Work Phone: Start: 12-29-2023 End: 12-29-[address] Kin Herr Work Phone: [facility] Work Phone: Start: 12-29-2023 End: 12-29-[address] Kin Herr Work Phone: [facility]-Ultrasound, [facility] Work Phone: Start: 12-26-2023 End: 12-26-[address] Kin Herr Work Phone: [facility] Work Phone: Start: 12-26-2023 End: 12-26-[address] Kin Herr Work Phone: [facility]-Laboratory Work Phone: Start: 10-27-2023 End: 10-27-[address] Kin Herr Work Phone: [facility]-Pulmonary Services/Neurology Work Phone: Start: 10-02-2023 End: 10-02-[address] Kin Herr Work Phone: [facility] Work Phone: Start: 10-02-2023 End: 10-02-[address] Kin Herr Work Phone: [facility] Work Phone: Start: 06-28-2023 End: 06-28-2023 ambulatory [facility] Work Phone: Start: 06-28-2023 End: 06-28-2023 [facility] Start: 10-14-2022 End: 10-14-[address] Kin Herr Work Phone: [facility] Work Phone: Start: 10-14-2022 End: 10-14-[address] Kin Herr Work Phone: [facility]-Ultrasound, [facility] Start: 10-12-2022 End: 10-12-[address] Kin Herr Work Phone: [facility] Work Phone: Start: 10-12-2022 End: 10-12-[address] [facility] Start: 10-04-2022 End: 10-04-[address] Kin Herr Work Phone: [facility] Heart [facility] Start: 06-07-2022 End: 06-07-[address] Kin Herr [facility] Start: 05-25-2022 End: 05-25-[address] Kin Herr Work Phone: [facility] Heart [facility] Start: 04-12-2022 End: 04-12-[address] [facility] Start: 04-07-2022 Non-patient / Non-visit Dr. Broderick Herr Work Phone: [facility] Start: 04-07-2022 End: 04-07-2022 Admission to same day surgery center Dr. Kin Herr Work Phone: [facility]-Women'S Basketball Coach/Special Procedures Start: 03-29-2022 End: 03-29-[address] Kin Herr Work Phone: [facility] Start: 03-02-2022 End: 03-02-[address] Kin Herr Work Phone: [facility] Start: 02-16-2022 Non-patient / Non-visit Dr. Broderick Herr Work Phone: [facility] Start: 02-16-2022 End: 02-16-[address] Kin Herr Work Phone: [facility]-Cardiovascu lar Services Start: 01-12-2022 End: 01-12-[address] Kin Herr Work Phone: [facility] Start: 12-21-2021 End: 12-21-[address] Kin Herr Work Phone: [facility]-Laboratory, Specimen Start: 11-30-2021 End: 11-30-[address] Kin Herr Work Phone: [facility]-Laboratory Procedures Date Procedure Procedure Detail Performing Clinician Start: 06-30-2025 Fol[address] stimulating hormone measurement Dr[address] Alessia Herr MD Work Phone: Comment on above: FEMALE:Follicular: 1 .4 - 18.1 mIU/mLMidcycle: 3.4 - 33.4 mIU/mLLuteal: 1.5 - 9.1 mIU/mLPost Menopause: 23.0 - 116.3 mIU/mLMALE: 1.4 - 18.1 mIU/mL Start: 06-13-[address] Alessia Herr MD Work Phone: Start: 06-13-2025 Screening mammography Hope Herr MD Work Phone: Start: 06-04-2025 Liquid based cervica l cytology [...] Treatment Date Care Activity Detail Author Start: 06-30-2025 Estradiol (E2) [Mass /volume] in Serum or Plasma [facility] Start: 06-30-2025 Follitropin and Lutr opin panel [Units/volume] - Serum or Plasma [facility] Start: 06-13-2025 Evaluation of diagno stic study results 12 Lead EKG performed by [facility] Start: 06-13-2025 MG Breast - bilatera l Screening [facility] Start: 07-14-2024 Influenza vaccination Influenz a Vaccine (Season Ended) [facility] Start: 07-14-2023 COVID-19 Vaccine ( season) COVID-19 Vaccine ( season) [facility] Start: 2017 Zoster Vaccines (1 of 2) Zoste r Vaccines (1 of 2) [facility] Start: 2007 Screening for malign ant neoplasm of breast Mammogram [facility] Start: 1989 DTaP/Tdap/Td Vaccine s (1 - Tdap) DTaP/Tdap/Td Vaccines (1 - Tdap) [facility] Start: 01-27-1988 Screening for malign ant neoplasm of cervix [facility] Start: 1986 Hepatitis B Vaccines (1 of 3 - 19+ 3-dose series) Hepatitis B Vaccines (1 of 3 - 19+ 3-dose series) [facility] Start: 1985 Hepatitis C screening Hepatiti s C Screening [facility] Start: 01-27-1968 MMR Vaccines (1 of 1 - Standard series) MMR Vaccines (1 of 1 - Standard series) [facility] Start: 1967 HIV screening HIV Screening [facility] Start: 1967 Lipid panel Lipid Panel [facility] Start: 1967 Screening for malign ant neoplasm of colon [facility] Start: 1967 Yearly Adult Physical Yearly A dult Physical [facility] Cardiac electrophysiology [facility] Work Phone: Cardiac event recording [facility] End: 05-08-2024 CT for calcium scoring WO contrast and CTA W contrast IV Heart and coronary arteries [facility] Service Area Work Phone: Comment on above: Once for 1 Occurrenc es starting 05/08/2024 until 05/08/2024 Follicle stimulating hormone measurement [facility] Liquid based cervica l cytology screening [facility] Lutropin [Units/volu me] in Serum or Plasma [facility] MG Breast - bilatera l Screening [facility] [place] Pelvis transvaginal [place] [facility] Payers Date Payer Category Payer Unknown [id number] 2024 Self-pay [id number] 2023 Unknown [employer] [id number] 2023-Present [address] [place] [address] [id number] 2023 Unknown [id number] 2009 Unknown [id number] 1967 Unknown [id number] Unknown [facility] PACKAGE PLAN [id number] Unknown [id number] Unknown [id number] [id number] Unknown [id number] [id number] Unknown [id number] [id number] Unknown [id number] [id number] Unknown [id number] 2.16.840.1.201620.3.579.2.462 Unknown [id number] 2.16.840.1.764627.3.579.2.462 Unknown [id number] 2.16.840.1.265940.3.579.2.462 Unknown [id number] 2.16.840.1.362078.3.579.2.462 Unknown [id number] 2.16.840.1.037613.3.579.2.462 Unknown [id number] 2.16.840.1.008267.3.579.2.462 Unknown [id number] 2.16.840.1.302794.3.579.2.462 Unknown [id number] 2.16.840.1.334342.3.579.2.462 Unknown [id number] 2.16.840.1.068997.3.579.2.462 Unknown [id number] [id number] Unknown [id number] [id number] Unknown [id number] [id number] Social History Date Type Detail Facility Start: 01-12-2022 End: 10-02-2023 Tobacco smoking status NHIS Unknown if ever smoked [facility] Start: 1965 Sex Assigned At Female [facility] Start: 1965 Sex assigned at Not on file [facility] Work Phone: Gender identity Not on file [facility] Start: 04-28-2024 End: 05-08-2024 Exposure to SARS-CoV-2 (event) Not sure [facility] Start: 10-02-2023 End: 06-04-2025 Tobacco smoking status NHIS Never smoked tobacco (finding) [facility] Start: 02-04-2025 End: 02-07-2025 Sex Female (finding) [facility] Sexual Orientation Heterosexual (finding) [facility] Clinical Notes 12-21-2021 to 06-13-2025 Note Date & Type Note Facility 06-13-2025 Radiology Diagnostic study note [facility] Imaging Services [address] [place] [address] Transvaginal Non- MR#: [id number] Acct: [id number] Name: TAYLOR VAZQUEZ Rep #: [id number] : 1965 F 60 From: Chaparro Chappell MD PCP: Dr. Alessia Herr MD Status: REG CLI Study:Transvaginal Non- Date of Exam: 06/13/25 Exam# [id number] Ordering Dr: Ellie Perdomo CNM PROCEDURE: TRANSVAGINAL NON- 06/13/2025 REASON FOR EXAM: ABNORMAL UTERINE BLEEDING Occasional spotting. Patient is perimenopausal. TECHNIQUE: TRANSVAGINAL NON- COMPARISON: None FINDINGS: Measurements: Uterus: 10.6 cm x 7.4 cm x 5.7 cm with a volume of 232.78 mL Endometrial Thickness: 9 mm. It is hyperechoic. Right Ovary: Not visualized. Left Ovary: Not visualized. Uterus: Enlarged fibroid uterus. Heterogeneous echotexture. There is a 2.7 cm 2.5 cm 1.8 cm fundal fibroid. To hypoechoic nodule is seen in the cervix. The largest measures 1 cm x 1.4 cm 0.8 cm. Thesemay represent polyps. Endometrium: 9 mm. Right ovary: Normal size and echotexture. Left ovary: Normal size and echotexture. Other: No large pelvic mass identified. US/Transvaginal Non- IMPRESSION: Enlarged fibroid uterus. Possible endometrial polyps in the cervical region. Reading Location: [id number] CC: JESSE Perdomo; Dr. Alessia Herr MD ~ Division Director: Signed [facility] 06-04-2025 Evaluation note Diagnosis Onset Date Resolution Abnormal uterine bleeding acute June 04, 2025 7:52am Encounter for routine gynecological examination noneactive June 04, 2025 7:52am [facility] Work Phone: 1(601) 112-588507-23-2025 Evaluation note* Diagnosis Onset Date Resolution Status Admit Date Abnormal uterine bleeding acute June 04, 2025 7:52am Encounter for routine gynecological examination noneactive May 142024 7:52am Abnormal uterine bleeding acute June 30, 2025 3:46pm [facility] Work Phone: 1(538) 230-459107-23-2025 [facility] [address] [place] [address], [address] [place] [address] OFFICE VISIT Date of Service: 06/04/25 MR#: [id number] Acct: [id number] Name: ESTUARDODONNATAYLOR JEAN Rep #: [id number] : 1965 Provider: JESSE Perdomo Age/Sex: 60/F Location: [facility].W Status: Signed Intake Vital Signs 09/09/24 08:33 02/26/25 14:49 06/04/25 08:21 06/04/25 08:26 Height 5 ft 4 in 5 ft 4 in 5 ft 4 in 5 ft 4 in Weight: 220 lb 233 lb BMI 37.8 39.9 BP 116/67 109/71 Blood Pressure Location Lt brachial Lt brachial Position Sitting Sitting Respiration 16 Pulse 77 Pulse Source NIBP Intake Visit 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 Previously saw [facility]- Having menses about every 9-10 months with spotting every 2 months.Bleeding will ebb and flow between brightred and brown. Has concerns that she is still having vaginal bleeding at age 60. discussed bleedingwarning signs after menopause. Last PAP: 2021 History [...] bimanual exam, normal palpation, uterine size normal, Notender, non-tender, enlarged (palpates significantly larger thanexpected ) [...] exam or sooner if needed. 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 Endocervical and/or squamous metaplasticcells (endocervical component)are present.[employer] INTERFACED A#[id number] Health [facility] Work Phone: Comment on above:Satisfactory for evaluation. Endocervical and/or squamous metaplasticcells (endocervical component)are present.12-21-2021 NotePap Smear Specimen AdequacyFebruary 2021 5:00pm CommentSatisfactory for evaluation. Endocervical and/or squamous metaplasticcells (endocervical component)are present.[employer] INTERFACED A#[id number] Health [facility] Work Phone: Comment on above:Satisfactory for evaluation. Endocervical and/or squamous metaplasticcells (endocervical component)are present.12-21-2021 NotePap Smear Specimen AdequacyFebruary 2021 5:00pm CommentSatisfactory for evaluation. Endocervical and/or squamous metaplasticcells (endocervical component)are present.[employer] INTERFACED A#[id number] Health [facility] Work Phone: Comment on above:Satisfactory for evaluation. Endocervical and/or squamous metaplasticcells (endocervical component)are present.12-21-2021 NotePap Smear Specimen AdequacyFebruary 2021 5:00pm CommentSatisfactory for evaluation. Endocervical and/or squamous metaplasticcells (endocervical component)are present.[employer]ED A#[id number] Health [facility] Work Phone: Comment on above:Satisfactory for evaluation. Endocervical and/or squamous metaplasticcells (endocervical component)are present.Evaluation note* Diagnosis Onset Date Resolution Status Nonsustained paroxysmal ventricular tachycardia acute [facility] Work Phone: Evaluation note* Diagnosis Onset Date Resolution Status Nonsustained paroxysmal ventricular tachycardia acute AVNRT (AV nii re-entry tachycardia) acute Nonsustained paroxysmal ventricular tachycardia acute [facility] Work Phone: Evaluation note* Diagnosis Onset Date Resolution Status AVNRT (AV nii re-entry tachycardia) acute Nonsustained paroxysmal ventricular tachycardia acute AVNRT (AV nii re-entry tachycardia) acute Nonsustained paroxysmal ventricular tachycardia acute [facility] Work Phone: Evaluation note* Diagnosis Onset Date Resolution Status AVNRT (AV nii re-entry tachycardia) acute Nonsustained paroxysmal ventricular tachycardia acute [facility] Work Phone: Evaluation noteNo assessment information available [facility] Work Phone: Evaluation note* Diagnosis Ventricular tachycardia (Multi) Paroxysmal ventricular tachycardia Supraventricular tachycardia (CMS-HCC) Other specified cardiac dysrhythmias Other cardiomyopathies (Multi) documented in this encounter [facility] Work Phone: Progress note Author Ellie Perdomo [facility] Note Date/Time June 04, 2025 9:01 am [facility] [place] [facility] [address], [address] [place] [address] OFFICE VISIT Date of Service: 06/04/25 MR#: [id number] Acct: [id number] Name: TAYLOR VAZQUEZ Rep #: [id number] : 1965 Provider: JESSE Perdomo Age/Sex: 60/F Location: [facility] Status: Signed Intake Vital Signs 09/09/24 08:33 02/26/25 14:49 06/04/25 08:21 06/04/25 08:26 Height 5 ft 4 in 5 ft 4 in 5 ft 4 in 5 ft 4 in Weight: 220 lb 233 lb BMI 37.8 39.9 BP 116/67 109/71 Blood Pressure Location Lt brachial Lt brachial Position Sitting Sitting Respiration 16 Pulse 77 Pulse Source NIBP Intake Visit 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) Magnetic Doctor Required: No Is patient in pain?: No [...] Current gender identity: female Control Method: tubal [facility] Medical History (Updated 06/04/25 @ 09:01 by [...] physical activity do you participate in: none shakir/latter day: Religion seatbelt use: always do you feel safe at home: Yes additional social history: - Robin HPI Encounter for routine gynecological examination Details: TAYLOR VAZQUEZ is a 60 year old who [...] Cosigner Signature: Date (if applicable) CC: ~ [facility] Work Phone: Reason for referral (narrative)No reason for referral information availableWPeoples [facility] Work Phone: Chief Complaint and Reason [...] FU February 26, 2025 2:4 6pm Annual (FIGURINE MAKER) June 04, 2025 7:52 am Reason for [...] FU February 26, 2025 2:4 6pm Annual (FIGURINE MAKER) June 04, 2025 7:52 am ANNUAL NON- June 04, 2025 5:07 pm Chief Complaint Admit Date 4 M FU February 26, 2025 2:4 6pm Annual (FIGURINE MAKER) June 04, 2025 7:52 am ANNUAL NON- June 04, 2025 5:07 pm abnormal uterine bleeding/SCREENING Augu 2024 7:32am Chief Complaint Admit Date Annual (FIGURINE MAKER) June 04, 2025 7:52 am ANNUAL NON- June 04, 2025 5:07 pm abnormal uterine bleeding/SCREENING Augu 2024 7:32am Surgical Consult June 30, 2025 3: 46pm Reason for Visit Admit Date Abnormal uterine bleeding June 04 7:52am Encounter for routine gynecological exam ination June 04, 2025 7:52am Reason for Visit Admit Date Abnormal uterine bleeding June 04 7:52am Encounter for routine gynecological exam ination June 04, 2025 7:52am Abnormal uterine bleeding June 30, 2 025 3:46pm Advance Directives No Advanced Directives Records Found Advance Directive Response Recorded Date/ Time Advance Directives Yes April 07 9:41am Living Will Yes April 07, 2022 9 :41am Power of Food Service Substitute Yes April 07, 2022 9:41am Advance Directive Response Recorded Date/ Time Advance Directives on File No March 142021 9:41am Name of Medical Power of Food Service Substitute Robin Tong r- April 07, 2022 9:41am Advance Directives Yes April 07 9:41am Living Will Yes April 07, 2022 9 :41am Power of Food Service Substitute Yes April 07, 2022 9:41am Advance Directive Response Recorded Date/ Time Advance Directives Yes April 07 8:41am Living Will Yes April 07, 2022 8 :41am Power of Food Service Substitute Yes April 07, 2022 8:41am Advance Directive Response Recorded Date/ Time Living Will Yes April 07, 2022 9 :41am Do you have a Healthcare Power of Food Service Substitute? Yes April 07, 2022 9:41am Advance Directives Yes April 07 9:41am Advance Directive Response Recorded Date/ Time Advance Directives Yes April 07 9:41am Summary [...] Procedures CT cardiac scoring wo IV contrast Candelaria Grissom PA-C [address] [facility] [address] [place] [address] Referral ID Status Reason Start Date Expiration Date Visits Requested Visits Authorized [id number] Authorized Perform Procedure 05/01/2024 05/01/2025 1 1 [...] Primary Care Provider Activ e Katelyn Galicia TELECOMMUNICATIONS FACILITY EXAMINER, TELECOMMUNICATIONS FACILITY EXAMINER-C Attending Provider, Referring Provider Active Team Status: Inactive Member Role Status Dates Dr. Kin Herr MD Primary Care Provider, Refe rring Provider Active Candelaria CRANDALL PA Attending Provider Active Team Status: Inactive Member Role Status Dates Dr. Kin Herr MD Primary Care Provider Activ e Candelaria CRANDALL PA Attending Provider, Referr ing Provider [...] Alessia Herr MD Family Provider Active Dr. Alessia Herr MD Primary Care Provider [...] Care Provider, Attending Provider, Referring Provider Active Flight Attendant Inflight Services Relationship Specialty Start Date End Date Alessia Herr MD [address] [place] [address] PCP - General Family Medicine 05/01/24 Team Status: Active Member Role Status Dates Dr. Alessia Herr MD Primary Care Provider Acti ve Team Status: Inactive Member Role Status Dates Dr. Alessia Herr MD Primary Care Provider Acti ve Start: November 01, 2024 End: November 01, 2024 Katelyn Galicia TELECOMMUNICATIONS FACILITY EXAMINER, TELECOMMUNICATIONS FACILITY EXAMINER-C Attending Provider Active Start: November 01, 2024 End: November 01, 2024 Katelyn Galicia TELECOMMUNICATIONS FACILITY EXAMINER, TELECOMMUNICATIONS FACILITY EXAMINER-C Referring Provider Active Start: November 01, 2024 End: November 01, 2024 Team Status: Inactive Member Role Status Dates Dr. Alessia Herr MD Primary Care Provider Acti ve Start: November 11, 2024 End: November 11, 2024 Candelaria CRANDALL, PA Attending Provider Active Start: November 11, 2024 End: November 11, 2024 Candelaria Grissom PA, PA Referring Provider Active Start: November 11, 2024 End: November 11, 2024 Team Status: Inactive Member Role Status Dates Dr. Alessia Herr MD Primary Care Provider Acti ve Start: December 31, 2024 End: December 31, 2024 Katelyn Galicia TELECOMMUNICATIONS FACILITY EXAMINER, TELECOMMUNICATIONS FACILITY EXAMINER-C Attending Provider Active Start: December 31, 2024 End: December 31, 2024 Katelyn Galicia TELECOMMUNICATIONS FACILITY EXAMINER, TELECOMMUNICATIONS FACILITY EXAMINER-C Referring Provider Active Start: December 31, 2024 End: December 31, 2024 Team Status: Inactive Member Role Status Dates Dr. Alessia Herr MD Primary Care Provider Acti ve Start: January 24, 2025 End: January 24, 2025 Candelaria Grissom PA, PA Attending Provider Active Start: January 24, 2025 End: January 24, 2025 Candelaria Grissom PA, PA Referring Provider Active Start: January 24, 2025 End: January 24, 2025 Team Status: Active Member Role Status Dates Dr. Alessia Herr MD Primary Care Provider Acti ve Start: January 29, 2025 Candelaria Grissom PA, PA Attending Provider Active Start: January 29, 2025 Candelaria Grissom PA, PA Referring Provider Active Start: January 29, 2025 Team Status: Active Member Role Status Dates Dr. Alessia Herr MD Primary Care Provider Acti ve Start: January 29, 2025 Dr. Sherif Conroy MD Attending Provider Active S tart: January 29, 2025 Candelaria Grissom PA, PA Referring Provider Active Start: January 29, 2025 Team Status: Inactive Member Role Status Dates Dr. Alessia Herr MD Primary Care Provider Acti ve Start: January 29, 2025 End: January 29, 2025 Candelaria Grissom PA, PA Attending Provider Active Start: January 29, 2025 End: January 29, 2025 Candelaria Grissom PA, PA Referring Provider Active Start: [...] February 26, 2025 End: February 26, 2025 Candelaria CRANDALL, PA Attending Provider Active Start: February 26, [...] February 26, 2025 End: February 26, 2025 Candelaria CRANDALL, PA Attending Provider Active Start: February 26, [...] Primary Care Provider Acti ve Start: June 13, 2025 End: June 13, 2025 Ellie Perdomo CNM Attending Provider Active S tart: June 13, 2025 End: June 13, 2025 Ellie Perdomo CNM Referring Provider Active S tart: June 13, 2025 End: June 13, 2025 Team Status: Inactive Member Role/Relationship Status [...] Primary Care Provider Acti ve Start: June 13, 2025 End: June 13, 2025 Ellie Perdomo CNM Attending Provider Active S tart: June 13, 2025 End: June 13, 2025 Ellie Perdomo CNM Referring Provider Active S tart: June 13, 2025 End: June 13, 2025 Team Status: Active Member Role/Relationship Status Dates Dr. Alessia Herr MD Primary Care Provider Acti ve Start: June 27, 2025 Katelyn Galicia TELECOMMUNICATIONS FACILITY EXAMINER, TELECOMMUNICATIONS FACILITY EXAMINER-C Attending Provider Active Start: June 27, 2025 Katelyn Galicia TELECOMMUNICATIONS FACILITY EXAMINER, TELECOMMUNICATIONS FACILITY EXAMINER-C Referring Provider Active Start: June 27, 2025 Team Status: Inactive Member Role/Relationship Status Dates Dr. Alessia Herr MD Primary Care Provider Acti ve Start: June 30, 2025 End: June 30, 2025 Dr. Alessia Herr MD Referring Provider Active Start: June 30, 2025 End: June 30, 2025 Dr. Fabiola Jorgensen DO Attending Provider Activ e Start: June 30, 2025 End: June 30, 2025 Team Status: Active Member Role/Relationship Status Dates Dr. Alessia Herr MD Primary Care Provider Acti ve Start: June 30, 2025 Dr. Fabiola Jorgensen DO Attending Provider Activ e Start: June 30, 2025 Dr. Fabiola Jorgensen DO Referring Provider Activ e Start: June 30, 2025 Team Status: Inactive Member Role/Relationship Status Dates Dr. Alessia Herr MD Primary Care Provider Acti ve Start: June 27, 2025 End: June 27, 2025 Katelyn Galicia TELECOMMUNICATIONS FACILITY EXAMINER, TELECOMMUNICATIONS FACILITY EXAMINER-C Attending Provider Active Start: June 27, 2025 End: June 27, 2025 Katelyn Galicia TELECOMMUNICATIONS FACILITY EXAMINER, TELECOMMUNICATIONS FACILITY EXAMINER-C Referring Provider Active Start: June 27, 2025 End: June 27, 2025 Team Status: Inactive Member Role/Relationship Status Dates Dr. Alessia Herr MD Primary Care Provider Acti ve Start: June 30, 2025 End: June 30, 2025 Dr. Fabiola Jorgensen DO Attending Provider Activ e Start: June 30, 2025 End: June 30, 2025 Dr. Fabiola Jorgensen DO Referring Provider Activ e Start: June 30, 2025 End: June 30, 2025 INFORMATION SOURCE (unrecogn ized section and content) DATE CREATED AUTHOR 06/04/2024 [facility] DATE CREATED AUTHOR AUTHOR'S ORGANIZ ATION 08/06/2025 [facility] Reason for Visit (unrecogniz ed section and content) Specialty Diagnoses / Procedures Referred By Contdesmond t Referred To Contact Radiology Diagnoses Ventricular tachycardia (Multi) Supraventricular tachycardia (CMS-HCC) Other cardiomyopathies (Multi) Procedures CT cardiac scoring wo IV contrast Candelaria Grissom PA-C [id number] [facility] [address] [place] [id number] Referral ID Status Reason Start Date Expiration Date Visits Requested Visits Authorized [id number] Authorized Perform Procedure 05/01/2024 05/01/2025 1 1 [...] BE BASED ON THE PRIMARY CLINICAL RECORDS. [facility]. provides no warranty or guarantee of the accuracy or completeness of information in this document.
[2025-08-08] MEDS: Lactated Ringers 1,000 ML 15 ML IV (06:22)
--- NOTE | 2025-08-08 06:39 | PCM.PRE.AN2 ---
ASA Classification* ASA Classification ASA Classification: 2 Assessment & Plan Anesthesia* Anesthesia Assessment Anesthesia Assessment: Discussed sedation and/or anesthesia options, risks, benefits, and alternatives with patient/parents/legal guardian/POA. Questions invited. The patient/parents/legal guardian/POA seems to understand and agrees to proceed with anesthesia plan. Reviewed the physical assessment, medical history, allergy history and patient home medications list prior to surgery/procedure/anesthetic and documented any changes. Performed airway and anesthesia risk assessments. Anesthesia Type Anesthesia Type: General and MAC History Source History Obtained from:: Patient, Chart and Significant Other (Spouse present in the room) Anesthesia Focused Assessment* Temperature: 97.2 F Pulse Rate: 73 Blood Pressure: 123/79 Respiratory Rate: 16 Pulse Ox: 98 Oxygen Delivery Method: Room Air Airway Assessment Mouth opens: >3 cm Mallampati Score: II Teeth Condition: Intact Neck Range of motion (ROM): Full ROM Labs Anesthesia Preop lab: CBC WBC, (4.4-11.0) 8.0 K/mm3 08/01/25, 07:49 RBC, (4.2-5.4) 4.34 M/mm3 08/01/25, 07:49 Hgb, (12.0-15.0) 12.4 g/dL 08/01/25, 07:49 Hct, (37-47) 37.1 % 08/01/25, 07:49 Plt Count, (150-450) 234 K/mm3 08/01/25, 07:49 CHEMISTRY Potassium, (3.3-5.1) 4.1 mmol/L 08/01/25, 07:49 Sodium, (133-145) 137 mmol/L 08/01/25, 07:49 Magnesium, (1.5-2.2) 2.1 mg/dL 01/24/25, 15:50 BUN, (4-19) 13 mg/dL 08/01/25, 07:49 Creatinine, (0.70-1.20) 0.68 mg/dL L 08/01/25, 07:49 Glucose, (70-99) 126 mg/dL H 08/01/25, 07:49 TSH, (0.300-4.200) 2.020 uIU/mL 06/27/25, 09:11 COAG PT, (11.7-14.9) 13.0 SECONDS 03/29/22, 14:36 Pre-Assessment Diagnosis/Proposed Procedure Planned Operative Procedure(s): HYSTEROSCOPY D&C Anesthesia History Anesthesia History - computer technologist: Anesthesia History - computer technologist Hx Hospitalization No 07/30/25 09:06 Any Problems With Anesthesia No 07/30/25 09:06 Cholinesterase deficiency No 07/30/25 09:06 You/Your Family Experience No 07/30/25 09:06 fever (hyperthermia) with Relationship Recent Exposure to Contagious No 08/08/25 06:19 Disease Does patient have nerve No 07/30/25 09:06 stimulator Patient instructed to have device shut off --Does patient have Pacemaker No 08/08/25 06:19 or ICD? When Was Last Pacemaker Check QUESTION #4 FULL TEXT: You/Your Family Experience fever (hyperthermia) with Anesthesia Last Oral Intake Last Oral intake: Last Oral Intake NPO since 22:00 08/08/25 06:19 Meds taken in AM with sips of Yes 08/08/25 06:19 water? Meds patient instructed to take am of surgery PONV PONV - computer technologist: PONV - computer technologist Female Yes 07/30/25 09:06 HX of Motion Sickness Yes 07/30/25 09:06 HX of N/V After Surgery No 07/30/25 09:06 Non-Smoker Yes 07/30/25 09:06 Duration of Surgery greater No 07/30/25 09:06 than 60 minutes Number of Risk Factors 3 07/30/25 09:06 PONV Score Moderate Risk 07/30/25 09:06 Height & Weight Height & Weight: Anesthesia: Height & Weight Height 5 ft 4 in 08/08/25 06:19 Weight: 98.6 kg 08/08/25 06:19 Body Mass Index (BMI) 37.3 08/08/25 06:19 Respiratory Assessment Respiratory Assessment - computer technologist: Respiratory Tract Infection Hx - computer technologist Hx Respiratory Tract Infection No 07/30/25 09:06 STOP Sleep Apnea STOP Sleep Apnea - computer technologist: STOP Sleep Apnea - computer technologist Hx Hypertension No 07/30/25 09:06 Hx Sleep Apnea No 07/30/25 09:06 CPAP BIPAP Do you snore loudly (louder No 07/30/25 09:06 than talking or can be heard Do you often feel tired/ No 07/30/25 09:06 fatigued/ sleepy during daytime? Has anyone observed you stop No 07/30/25 09:06 breathing during sleep? STOP Results Negative 07/30/25 09:06 QUESTION #5 FULL TEXT : Do you snore loudly (louder than talking or can be heard through closed doors)? Tobacco Use History Tobacco Use History - computer technologist: Tobacco Use History - computer technologist Tobacco Use Smoking Status Never smoker 07/30/25 09:06 Hx Tobacco Use No 07/30/25 09:06 Years Smoking Packs Smoked per Day Smoking Cessation Date was within the last 15 years Hx Smoking Cessation Date Hx Smoking Cessation Counseling Hematologic Medial History Hematologic Hx - computer technologist: Hematologic Medical Hx - metaphysician Hx of Blood Transfusion No 07/30/25 09:06 Hx of Transfusion in last 3 No 07/30/25 09:06 Months Date of Last Transfusion (if within last 3 months) Ever experience any problems No 07/30/25 09:06 with transfusion(s)? Specify any problems Hx of Preganancy in last 3 No 07/30/25 09:06 Months Nurse Filling Out Transfusion DSCHRIBER 07/30/25 09:06 & Questions: Date: 07/30/25 07/30/25 09:06 Time: 09:08 07/30/25 09:06 Patient unable to answer at this time (ie. confused, unrespo /Reproduction History /Reproductive History - computer technologist: /Reproductive Hx- computer technologist Hx Now No 07/30/25 09:06 Gestational Age (in weeks): EDC: Hx Hx Para Hx Section SAB No 07/30/25 09:06 Active Medications Active Medications: Current Medications Generic Name Dose Route Start Last Admin Trade Name Freq PRN Reason Stop Dose Admin Lactated Ringer's 1,000 mls @ 15 mls/hr 08/08/25 06:15 08/08/25 06:22 IV 15 mls/hr .Q48H JUAN JOSE Administration PFSH Medical History Wears contact lenses Post-menopausal Dietary restriction Gastric reflux Non-smoker Leg cramps History of Holter monitoring History of echocardiogram History of stress test Cardiology follow-up encounter History of irregular heartbeat Non-ischemic cardiomyopathy Type 2 diabetes mellitus Hypothyroidism Obesity Nonsustained paroxysmal ventricular tachycardia Home Medications ?Medication ?Instructions ?Recorded ?Last Taken ?Type levothyroxine 25 mcg tablet 25 mcg PO DAILY 01/12/22 08/08/25 History metformin 500 mg tablet,extended 1,500 mg PO QAM 01/12/22 04/06/22 History release 24 hr spironolactone 50 mg tablet 50 mg PO DAILY 01/12/22 Unknown History omega-3 fatty acids 1,000 mg 1,000 mg PO DAILY 04/03/24 Unknown History capsule metoprolol succinate 25 mg 25 mg PO QHS #90 tabs 11/11/24 08/07/25 Rx tablet,extended release 24 hr cholecalciferol (vitamin D3) 25 25 mcg PO QDAY 02/26/25 Unknown History mcg (1,000 unit) tablet berberine chloride 500 mg capsule 500 mg PO DAILY 07/30/25 Unknown History Allergy/AdvReac Type Severity Reaction Status Date / Time erythromycin base Allergy Intermediate hives Verified 08/08/25 06:19 Family History Grandmother Arthritis Sister Bleeding disorder Father Diabetes Heart disease Hypertension High cholesterol Brother CVA (cerebral vascular accident) Surgical History History of cardiac radiofrequency ablation S/P Social History adopted: No household members: family housing: house number of children: 4 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 pets and animals: Yes pets and animals: cat(s) and dog(s) history of recent travel: No sexually active: Yes Smoking Status: Never smoker second hand exposure: No alcohol intake: never substance use type: does not use well-balanced diet: daily or most days caffeine: Yes Type: carbonated beverages and coffee eating out: other details: 2-3/month during the past year weight has: remained stable what type of physical activity do you participate in: none shakir/latter day: Mandaen seatbelt use: always do you feel safe at home: Yes additional social history: - Robin Review of Systems (Anesthesia) ROS Narrative System reviewed and no additional complaints, except as documented.
--- NOTE | 2025-08-08 07:23 | DCINST_ITS ---
Discharge Instructions DC O2, CPAP, BIPAP needs Home O2 Discharge instructions: No Dressing / Incision Discharge Activity: Return to Normal Activity, May Shower and May Take a Tub Bath (after 1 week) May resume sexual activity in: 1-2 weeks Weight Bearing Status: Weight bearing as tolerated Lifting Restrictions: none Dressing / Incision Call your doctor if you observe: Fever of 101 or Higher, Using more than 1 pad per hour, Shortness of breath and Uncontrolled pain Follow Up Care Please Follow Up With: Fabiola Jorgensen DO When: Call [phone] to schedule appointment. Test Results: Test results from this visit will be discussed in further detail at your follow- up appointment, if applicable. Discharge Plan Admission Primary Reason for Your Visit: hysteroscopy dilation and curettage Attending Provider: Fabiola Jorgensen Primary Care Provider: Lázaro Herr Instructions Print Language: French Discharge Orders/Prescriptions Prescriptions: Continued levothyroxine 25 mcg tablet 25 mcg PO DAILY omega-3 fatty acids 1,000 mg capsule 1,000 mg PO DAILY Rx Instructions: super omega 300 cholecalciferol (vitamin D3) 25 mcg (1,000 unit) tablet 25 mcg PO QDAY metformin 500 mg tablet extended release 24 hr 1,500 mg PO QAM spironolactone 50 mg tablet 50 mg PO DAILY berberine chloride 500 mg capsule 500 mg PO DAILY metoprolol succinate 25 mg tablet extended release 24 hr 25 mg PO QHS Qty: 90 3RF Referrals / Follow Up: Lázaro Herr MD [Primary Care Provider, Family Practice] Disposition Disposition (needs filled in before D/C Order can be placed): Home, Self Care
--- NOTE | 2025-08-08 07:23 | HP.PCM_ITS ---
History and Physical Date of Admission: 08/08/25 Intake Vital Signs 06/04/2508:26 06/30/2515:51 06/30/2515:53 Height 5 ft 4 in 5 ft 4 in 5 ft 4 in Weight: 220 lb 8 oz BMI 37.8 BP 147/92 H Intake Visit Reasons: Surgical Consult Strategic Planning Director Required: No Is patient in pain?: No Allergies erythromycin base Allergy (Intermediate, Verified 06/30/25 15:50) hives Medications ?Medication ?Instructions ?Recorded ?Confirmed ?Type levothyroxine 25 mcg tablet 25 mcg PO DAILY 01/12/22 06/30/25 Histor y metformin 500 mg tablet,extended 1,500 mg PO QAM 01/12/22 06/30/25 Histor y release 24 hr spironolactone 50 mg tablet 50 mg PO DAILY 01/12/22 06/30/25 History omega-3 fatty acids 1,000 mg 1,000 mg PO DAILY 04/03/24 06/30/25 Hist ory capsule omeprazole 40 mg capsule,delayed 40 mg PO QDAY 09/09/24 06/30/25 History release metoprolol succinate 25 mg 25 mg PO QHS #90 tabs 11/11/24 06/30/25 Rx tablet,extended release 24 hr cholecalciferol (vitamin D3) 25 25 mcg PO QDAY 02/26/25 06/30/25 History mcg (1,000 unit) tablet magnesium oxide mg PO QPM 02/26/25 06/30/25 History Post menopausal: No Patient : No : No PFSH Medical History Simple cyst of breast Non-ischemic cardiomyopathy Type 2 diabetes mellitus Hypothyroidism Obesity Nonsustained paroxysmal ventricular tachycardia Surgical History S/P Family History Grandmother Arthritis Sister Bleeding disorder Father Diabetes Heart disease Hypertension High cholesterol Brother CVA (cerebral vascular accident) Social History adopted: No household members: family housing: house number of children: 4 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 pets and animals: Yes pets and animals: cat(s) and dog(s) history of recent travel: No sexually active: Yes Smoking Status: Never smoker second hand exposure: No alcohol intake: never substance use type: does not use well-balanced diet: daily or most days caffeine: Yes Type: carbonated beverages and coffee eating out: other details: 2-3/month during the past year weight has: remained stable what type of physical activity do you participate in: none shakir/yarsanism: Denominational seatbelt use: always do you feel safe at home: Yes additional social history: - Robin [facility] Surgical Consult Details: The patient is a 60-year-old female presenting with uterine abnormalities identified during an ultrasound. The ultrasound revealed a slightly enlarged uterus measuring 10.6 cm, with a 2.7 x 2.5 x 1.8 cm fundal fibroid and possible polyps at the cervical-uterine junction. The patient reports intermittent cramping and back pain associated with bleeding episodes, which occur every three to six months. The patient has not experienced a full year without bleeding, indicating ongoing menstrual activity or postmenopausal bleeding. 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 ultrasound: FINDINGS: Measurements: Uterus: 10.6 cm x 7.4 cm x 5.7 cm with a volume of 232.78 mL Endometrial Thickness: 9 mm. It is hyperechoic. Right Ovary: Not visualized. Left Ovary: Not visualized. Uterus: Enlarged fibroid uterus. Heterogeneous echotexture. There is a 2.7 cm 2.5 cm 1.8 cm fundal fibroid. To hypoechoic nodule is seen in the cervix. The largest measures 1 cm x 1.4 cm 0.8 cm. These may represent polyps. Endometrium: 9 mm. Right ovary: Normal size and echotexture. Left ovary: Normal size and echotexture. Other: No large pelvic mass identified. US/Transvaginal Non- IMPRESSION: Enlarged fibroid uterus. Possible endometrial polyps in the cervical region. ROS Const ROS Unobtainable: All systems reviewed & are unremarkable except as noted in H Resp Resp: Reports system reviewed and no additional complaints, except as documented; Denies cough GI GI: Reports as per HPI Psych Psych: Reports system reviewed and no additional complaints, except as documente d Exam Const General: cooperative, healthy appearing, comfortable and no acute distress Resp Effort & Inspection: normal respiratory effort Skin General: no rashes or lesions noted Psych Appearance: grossly normal Speech and Movement: speech and movement normal Coding Level of Care Code Off vis,est,level 4 Diagnoses Abnormal uterine bleeding N93.9 Assessment and Plan Assessment and Plan (1) Abnormal uterine bleeding: Status: Acute Comment: TVUS Will consider labs/possible EMB Plan: Assessment and Plan 60-year-old female with a history of ventricular tachycardia presenting with uterine abnormalities identified during an ultrasound. The ultrasound findings suggest a slightly enlarged uterus with a fundal fibroid and possible polyps, which may be contributing to the patient's intermittent bleeding and cramping. The patient's history of ventricular tachycardia and previous ablation is noted, and it is important to consider this in the context of any surgical intervention. 1. Uterine Fibroid The plan includes considering a dilation and curettage (D&C) to remove the fibroid and any polyps, with further evaluation by a pathologist to rule out malignancy. Hormonal testing will be conducted to determine menopausal status, which will guide further management decisions. 2. Uterine Polyps The polyps will be addressed during the D&C procedure, with pathological examination to assess for any atypical or malignant cells. 3. Postmenopausal Bleeding Postmenopausal bleeding will be evaluated through hormonal testing and D&C, with the aim of identifying the underlying cause and ensuring there are no malignant changes. 4. Ventricular Tachycardia The patient's history of ventricular tachycardia and previous ablation will be considered in the context of any surgical intervention, ensuring cardiology clearance for mild sedation during the procedure. 5. 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 Orders: Orders Estradiol Today N93.9 - Abnormal uterine and vaginal bleeding, unspecified FSH and LH Today N93.9 - Abnormal uterine and vaginal bleeding, unspecified Plan After discussing the patient's diagnosis and treatment plan options, patient wishes to proceed with surgical management. I have discussed with the patient the risks, benefits, and alternatives of the procedure which include but are not limited to risks of anesthesia, bleeding, infection, possible damage to bowel, bladder, or surrounding vasculature which could lead to additional surgery to evaluate any complications. Patient agrees to procedure and wishes to proceed. ACOG/uptodate references given for additional information regarding procedure. plan for hysteroscopy dilation and curettage, possible polypectomy.
--- NOTE | 2025-08-08 07:30 | EMB_PTH ---
PATIENT: IRISH VAZQUEZ LOC: [facility] [place] U#:[id number] AGE/SX: 60/F ROOM: RE08/08/[address]: Dr. Fabiola Jorgensen DO : 1965 BED: DIS: 08/08/2025 SPEC #: [id number] RECD: 08/08/25 10:38 STATUS: IFTIKHAR WILLISClif #: [id number] CLAUDETTE: 08/08/25 07:[address]: Fabiola Jorgensen DEPT: SURGICAL PATHOLOGY RECD BY: Rashard Rodrigez ENTERED: 08/08/25 11:43 SP TYPE: ENDOM BX/C GERARDO DR: Dr. Lázaro Herr MD Tissues: A - Endometrium, NOS Procedures: Surgery Specimen Level IV HEADER OPERATION: Hysteroscopy, D&C PRE-OP DIAGNOSIS: Uterine fibroid, uterine polyps, postmenopausal bleeding TISSUE SUBMITTED: A- Endometrial curettings MICROSCOPIC DIAGNOSIS A. Endometrium, curettage: * Proliferative endometrium. * Polypoid fragments of lower uterine segment. MICROSCOPIC DESCRIPTION Slides are reviewed. GROSS DESCRIPTION A. Received in formalin labeled with the patient's name and date of . Designated as endometrial curettings is a 2.5 x 1.9 x 0.3 cm aggregate of blood-tinged mucoid material, pink-red tissue fragments and clotted blood. Entirely submitted in 1 cassette. DC 08/08/2025 CPT:88402
[2025-08-08] MEDS: Lactated Ringers 1,000 ML 1000 ML IV (07:38)
[2025-08-08] MEDS: Midazolam 2 MG/2 ML Syringe IV (07:38)
[2025-08-08] MEDS: Lidocaine 1% (5 ml sdv) 5 ML Vial IV (07:46)
[2025-08-08] MEDS: Lidocaine 1% (20 ml mdv) 20 ML Vial (08:00)
[2025-08-08] MEDS: Ketorolac 30 MG/ML Syringe IV (08:08)
--- NOTE | 2025-08-08 08:13 | PCM.POST.ANE ---
Anesthesia: Postop Eval I Current Vital Signs Temperature: 96.8 F Pulse Rate: 77 Blood Pressure: 115/72 Respiratory Rate: 20 Pulse Ox: 96 Oxygen Delivery Method: Room Air Assessment Airway patent: Yes Spontaneous unlabored respirations: Yes Mental status: Awake and Calm nausea: No Vomiting: No Anesthesia Complication: No Fluid Hydration Crystalloid volume administer (ml): 300 Total IV fluid infused: 300 Progress Note Anesthesia document: Postop Eval 1 completed: Yes
--- NOTE | 2025-08-08 08:17 | PCM.OPRPT ---
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 Type of Anesthesia: MAC and Topical Anesth RN Documented Start/Stop Times: Operation Date: 08/08/25 07:30 Case Time Into Pre-Op 08/08/25 06:06 Out of Pre-Op 08/08/25 07:35 Anesthesia Start 08/08/25 07:38 Into Room 08/08/25 07:38 Procedure Start 08/08/25 07:55 Procedure End 08/08/25 08:01 Anesthesia End 08/08/25 08:07 Out of Room 08/08/25 08:07 Procedure Start Time: 07:55 Procedure Stop Time: 08:01 Select all DRAINS/GRAFTS/IMPLANTS that apply: None Estimated Blood Loss: 5cc Specimen collected: Yes Description of specimen(s) removed: endometrial curetting's Description of surgery: Patient was prepped and draped in a normal sterile fashion under MAC anesthesia. A weighted speculum was placed in the vagina and the anterior lip of the cervix was grasped with a single-tooth tenaculum. A paracervical block was placed with 1% lidocaine. Cervix was progressively dilated and sounded to 10 cm. A 5 mm hysteroscope was inserted into the uterus without difficulty. The lining was fully visualized and noted to have mucous at the cervicouterine junction. No sign of polyps or thickened tissue. Curettage was performed and the specimen was sent to pathology. All instruments were removed from the vagina and excellent hemostasis was noted. Patient was awoken and taken to recovery in stable condition. Surgical Findings: thin endometrium, mucous in cervico-uterine junction. This likey was was was seen on ultrasound Complications Complications: No Admit VTE Documentation VTE Present on Admission: No VTE Mechan Device Prophylaxis: SCD's VTE Pharm Prophylaxis ordered?: No
[2025-08-08] MEDS: HYDROcodone Bitartrate/Apap 5/325 Tablet PO (09:06)
--- NOTE | 2025-08-08 09:33 | POSTOPAN2_ITS ---
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 [email or web address] Spontaneous unlabored Yes 08/08/25 08:14 OPTICAL EFFECTS LINE UP [email or web address] respirations Mental status Awake,Calm 08/08/25 08:14 OPTICAL EFFECTS LINE UP [email or web address] nausea No 08/08/25 08:14 OPTICAL EFFECTS LINE UP [email or web address] Vomiting No 08/08/25 08:14 OPTICAL EFFECTS LINE UP [email or web address] Anesthesia Postop Eval I: Fluid Summary Crystalloid volume administer 300 08/08/25 08:14 OPTICAL EFFECTS LINE UP [email or web address] (ml) Colloids volume administered ( ml) Blood Product volume administered (ml) Total IV fluid infused 300 08/08/25 08:14 OPTICAL EFFECTS LINE UP [email or web address] Anesthesia Postop Eval I: Summary Notes Anesthesia Complication No 08/08/25 08:14 OPTICAL EFFECTS LINE UP [email or web address] Anesthesia Complication Comment: Post-operative progress note Anesthesia: Postop Eval II Evaluation Mental status: Awake and Calm Pain Level: 1 nausea: No Vomiting: No Complications Anesthesia Complication: No
--- NOTE | 2025-08-08 09:33 | PCM.POSTANE2 ---
Anesthesia Postop Eval I Sum Postop Eval Completion status Anesthesia document: Postop Eval 1 completed: Yes Anesthesia Postop Eval I Summary Anesthesia Postop Eval I Summary: Anesthesia Postop Eval I: Assessment Summary Airway patent Yes 08/08/25 08:14 [email or web address] Spontaneous unlabored Yes 08/08/25 08:14 [email or web address] respirations Mental status Awake,Calm 08/08/25 08:14 [email or web address] nausea No 08/08/25 08:14 [email or web address] Vomiting No 08/08/25 08:14 [email or web address] Anesthesia Postop Eval I: Fluid Summary Crystalloid volume administer 300 08/08/25 08:14 [email or web address] (ml) Colloids volume administered ( ml) Blood Product volume administered (ml) Total IV fluid infused 300 08/08/25 08:14 [email or web address] Anesthesia Postop Eval I: Summary Notes Anesthesia Complication No 08/08/25 08:14 [email or web address] Anesthesia Complication Comment: Post-operative progress note Anesthesia: Postop Eval II Evaluation Mental status: Awake and Calm Pain Level: 1 nausea: No Vomiting: No Complications Anesthesia Complication: No
== END 2025-08-08 09:44 | disposition home or self-care (01) ==
LOC: SDC 06:00 → AC 06:04
PROVIDERS: PCP Family Medicine; Referring Provider Obstetrics & Gynecology; Visit Provider Obstetrics & Gynecology
PROC: 0UDB8ZZ Extraction of Endometrium, Via Natural or Artificial Opening Endoscopic (ICD-10-PCS; CPT 58558; principal; 2025-08-08 07:20)
DX: N84.0 Polyp of corpus uteri (principal); I47.20 Ventricular tachycardia, unspecified; E11.9 Type 2 diabetes mellitus without complications; N95.0 Postmenopausal bleeding; D25.9 Leiomyoma of uterus, unspecified; K21.9 Gastro-esophageal reflux disease without esophagitis; E03.9 Hypothyroidism, unspecified; Z79.890 Hormone replacement therapy; Z79.899 Other long term (current) drug therapy
CPT/HCPCS: 58558; 00952; 36415; 80053; 82962; 85027; 86850; 86900; 86901; 88305; 93005